=== PATIENT | female | born 1940 | race Caucasian/White ===

== ENCOUNTER 2018-10-23 08:55 | Outpatient (CLI) | payer MEDICARE, MEDICAID ==
[~2018-10-23 08:55] MED LIST: ALPR0.5T PO; ATEN50TA PO; CALCIUM PO; CLOT10TR MM; DICL100G16 TP; DOCU100C68 PO; GABA-534 PO; IBUP-23 PO; LINA145C PO; MECL12.582 PO; NAPR500T6 PO; PANT40TA4 PO; PREG150C PO; ROSU20TA2 PO; SENN-168 PO; SERT50TA PO; SOLI5TAB2 PO; TRAM50TA2 PO; ZOLP10TA2 PO; [UNRECOGNIZED DRUG - CODE] PO
[2018-10-23 09:52] LABS: BASOPHILS % (AUTO) 0.9 % (0.0-2.0); HEMATOCRIT 36.2 % (31.2-41.9); HEMOGLOBIN 12.2 g/dL (10.9-14.3); LYMPHOCYTES # (AUTO) 1.4 K/uL (20.0-40.0); LYMPHOCYTES % (AUTO) 31.8 % (20.5-51.5); MEAN CORPUSCULAR HEMOGLOBIN 29.7 uug (24.7-32.8); MEAN CORPUSCULAR HGB CONC 34 g/dL (32.3-35.6); MEAN CORPUSCULAR VOLUME 88.2 fL (75.5-95.3); MONOCYTES # (AUTO) 0.5 K/uL (2.0-10.0); MONOCYTES % (AUTO) 10.9 % (0.0-11.0); NEUTROPHILS # (AUTO) 2.5 K/uL (1.8-8.9); NEUTROPHILS % (AUTO) 55.4 % (38.5-71.5); PLATELET COUNT (AUTO) 233 K/uL (179-408); WHITE BLOOD COUNT (AUTO) 4.5 K/uL (3.8-11.8)
[2018-10-23 09:54] LABS: *BILIRUBIN,URIN NEGATIVE (NEGATIVE); *BLOOD, URINE NEGATIVE (NEGATIVE); *CLARITY,URINE CLEAR (CLEAR); *COLOR,URINE YELLOW (YELLOW); *KETONES,URINE NEGATIVE (NEGATIVE); *UROBILINOGEN,URINE 0.2 E.U./dl (NORMAL); LEUKOCYTE ESTERASE ,URINE 1+ (NEGATIVE); NITRITE, URINE NEGATIVE (NEGATIVE); UGLUCOSE NEGATIVE (NEGATIVE)
[2018-10-23 10:00] LABS: RBC,URINE 0-3 /HPF (0-3)
[2018-10-23 10:01] LABS: BACTERIA,URINE MODERATE /HPF (NONE SEEN); SQUAMOUS EPITHELIAL CELL,UR FEW /HPF (NONE SEEN)
[2018-10-23 10:09] LABS: ALANINE AMINOTRANSFERASE 15 U/L (14-59); ALKALINE PHOSPHATASE 57 U/L (50-136); ASPARTATE AMINOTRANSFERASE < 5 U/L (15-37); BILIRUBIN,TOTAL 0.3 mg/dL (0.2-1.0); CARBON DIOXIDE 31 mmol/L (21-32); CHLORIDE 107 mmol/L (98-107); CHOLESTEROL 221 mg/dL (<200); CREATININE 0.8 mg/dL (0.6-1.3); GLUCOSE 87 mg/dL (74-106); HDL CHOLESTEROL 59 mg/dL (40-60); POTASSIUM 4.2 mmol/L (3.5-5.1); TOTAL PROTEIN, SERUM 6.6 g/dL (6.4-8.2); TRIGLYCERIDES 162 MG/DL (30-150); UREA NITROGEN, BLOOD 20 mg/dL (7-18)
[2018-10-23 12:09] LABS: THYROID STIMULATING HORMONE 1.339 mIU/mL (0.358-3.740)
== END 2018-10-23 23:59 | disposition home or self-care (01) ==
LOC: LAB 08:55
DX: D64.9 Anemia, unspecified (principal); E03.9 Hypothyroidism, unspecified; E78.5 Hyperlipidemia, unspecified; R73.03 Prediabetes; I10 Essential (primary) hypertension; I25.10 Atherosclerotic heart disease of native coronary artery without angina pectoris; K21.9 Gastro-esophageal reflux disease without esophagitis; M19.90 Unspecified osteoarthritis, unspecified site
CPT/HCPCS: 36415; 84443; 85025; 87086

== ENCOUNTER 2020-10-28 11:43 | Outpatient (CLI) | payer MEDICARE, OTHER ==
[~2020-10-28 11:43] MED LIST changes: +MECL-182 PO; -MECL12.582 PO; -PANT40TA4 PO; +PANT40TA49 PO; -SENN-168 PO; +SENN-261 PO
[2020-10-28 12:42] LABS: *BILIRUBIN,URIN NEGATIVE (NEGATIVE); *CLARITY,URINE SLIGHTLY CLOUDY (CLEAR); *COLOR,URINE LIGHT YELLOW (YELLOW); *KETONES,URINE NEGATIVE (NEGATIVE); *UROBILINOGEN,URINE 0.2 E.U./dl (NORMAL); LEUKOCYTE ESTERASE ,URINE 1+ (NEGATIVE); NITRITE, URINE NEGATIVE (NEGATIVE); PH,URINE 6.5 (5.0-8.0); UGLUCOSE NEGATIVE (NEGATIVE)
[2020-10-28 13:25] LABS: *BLOOD, URINE TRACE (NEGATIVE)
[2020-10-28 14:21] LABS: BACTERIA,URINE FEW /HPF (NONE SEEN); SQUAMOUS EPITHELIAL CELL,UR MODERATE /HPF (NONE SEEN); WBC,URINE 20-50 /HPF (0-3)
== END 2020-10-28 23:59 | disposition home or self-care (01) ==
LOC: LAB 11:43
PROVIDERS: ATTEND Family Medicine
DX: B82.9 Intestinal parasitism, unspecified (principal); N39.0 Urinary tract infection, site not specified
CPT/HCPCS: 87086

== ENCOUNTER 2021-10-15 13:37 | Outpatient (CLI) | payer MEDICARE, OTHER ==
[~2021-10-15 13:37] MED LIST changes: -MECL-182 PO; +MECL-225 PO
[2021-10-15 14:37] LABS: *BILIRUBIN,URIN NEGATIVE (NEGATIVE); *BLOOD, URINE 1+ (NEGATIVE); *CLARITY,URINE CLEAR (CLEAR); *COLOR,URINE YELLOW (YELLOW); *KETONES,URINE NEGATIVE (NEGATIVE); *UROBILINOGEN,URINE 0.2 E.U./dl (NORMAL); LEUKOCYTE ESTERASE ,URINE 3+ (NEGATIVE); NITRITE, URINE NEGATIVE (NEGATIVE); PH,URINE 6.5 (5.0-8.0); UGLUCOSE NEGATIVE (NEGATIVE)
[2021-10-15 18:12] LABS: BACTERIA,URINE 2 /HPF (NONE SEEN); SQUAMOUS EPITHELIAL CELL,UR FEW /HPF (NONE SEEN); WBC,URINE 50-80 /HPF (0-3)
== END 2021-10-15 23:59 | disposition home or self-care (01) ==
LOC: LAB 13:37
PROVIDERS: ATTEND Family Medicine
DX: R30.0 Dysuria (principal)
CPT/HCPCS: 87086

== ENCOUNTER 2022-04-08 14:01 | Emergency (ER) | payer MEDICARE, OTHER ==
[~2022-04-08] VITALS: Ht 157.5 cm; Wt 70.3 kg
[2022-04-08 14:50] LABS: HEMATOCRIT 36.6 % (31.2-41.9); MEAN CORPUSCULAR HEMOGLOBIN 28.3 uug (24.7-32.8); PLATELET COUNT (AUTO) 265 K/uL (179-408)
--- NOTE | 2022-04-08 14:51 | NUR ---
PT IS IN ROOM #1A. DR ZHANG EVALUATED THE PT.
[2022-04-08 15:01] LABS: *BILIRUBIN,URIN NEGATIVE (NEGATIVE); *BLOOD, URINE NEGATIVE (NEGATIVE); *CLARITY,URINE CLOUDY (CLEAR); *COLOR,URINE YELLOW (YELLOW); *KETONES,URINE NEGATIVE (NEGATIVE); *UROBILINOGEN,URINE 0.2 E.U./dl (NORMAL); LEUKOCYTE ESTERASE ,URINE TRACE (NEGATIVE); NITRITE, URINE NEGATIVE (NEGATIVE); UGLUCOSE NEGATIVE (NEGATIVE)
[2022-04-08 16:28] LABS: BILIRUBIN,TOTAL 0.4 mg/dL (0.2-1.0); CREATININE 1.3 mg/dL (0.6-1.3); TOTAL PROTEIN, SERUM 7.3 g/dL (6.4-8.2)
[2022-04-08 16:30] LABS: RBC,URINE 0-3 /HPF (0-3)
[2022-04-08 16:31] LABS: BACTERIA,URINE FEW /HPF (NONE SEEN); SQUAMOUS EPITHELIAL CELL,UR MODERATE /HPF (NONE SEEN)
[2022-04-08] MEDS ORDERED: IOHEXOL 300MG/ML 100 ML INFUS..BTL ONE (16:44)
[2022-04-08] MEDS ORDERED: IV NORMAL SALINE 250 ML IV ONE (16:44)
[2022-04-08] MEDS ORDERED: CELLULOSE,OXIDIZED 2x3 MC ONE (16:44)
[2022-04-08] MEDS ORDERED: SWABABLE VALVE TRANSFER SET EA MC ONE (16:45)
--- NOTE | 2022-04-08 18:38 | NUR ---
PT WAS D/C'd TO HOME. D/C INSTRUCTIONS GIVEN TO THE PT BY DR ZHANG.
[2022-04-08 18:47] VITALS: BP 135/75
== END 2022-04-08 18:48 | disposition home or self-care (01) ==
LOC: ER 14:01
DX: R10.84 Generalized abdominal pain (principal); K63.89 Other specified diseases of intestine; I10 Essential (primary) hypertension; K21.9 Gastro-esophageal reflux disease without esophagitis; Z88.6 Allergy status to analgesic agent; Z79.899 Other long term (current) drug therapy
CPT/HCPCS: 99285; 74177; 80053; 81001; 85025; 36415; 87040; Q9967; A4663

== ENCOUNTER 2022-09-22 11:47 | Emergency (ER) | payer MEDICARE, OTHER ==
[~2022-09-22] VITALS: Ht 162.6 cm; Wt 70.3 kg
[2022-09-22] MEDS ORDERED: BENZONATATE 100 MG CAPSULE PO ONE (12:15)
[2022-09-22] MEDS ORDERED: RISP1TAB97 PO (12:17)
[2022-09-22] MEDS ORDERED: LORA0.5T48 PO (12:17)
[2022-09-22] MEDS ORDERED: DIVA250T PO (12:17)
[2022-09-22] MEDS ORDERED: BENZ0.5T43 PO (12:17)
[2022-09-22] MEDS ORDERED: BENZONATATE 100 MG CAPSULE ONE (12:20)
--- NOTE | 2022-09-22 12:31 | NUR ---
MEDICATION: Tessalon administered as prescribed and awaiting effect
[2022-09-22 12:38] LABS: HEMATOCRIT 33.9 % (31.2-41.9); MEAN CORPUSCULAR HEMOGLOBIN 28.4 uug (24.7-32.8); MEAN CORPUSCULAR VOLUME 86.7 fL (75.5-95.3); PLATELET COUNT (AUTO) 327 K/uL (179-408)
[2022-09-22 12:51] LABS: ALANINE AMINOTRANSFERASE 26 U/L (14-59); ALKALINE PHOSPHATASE 75 U/L (50-136); ASPARTATE AMINOTRANSFERASE 8 U/L (15-37); BILIRUBIN,TOTAL 0.2 mg/dL (0.2-1.0); CARBON DIOXIDE 27 mmol/L (21-32); CHLORIDE 106 mmol/L (98-107); CREATININE 1.3 mg/dL (0.6-1.3); POTASSIUM 4.3 mmol/L (3.5-5.1); TOTAL PROTEIN, SERUM 7.2 g/dL (6.4-8.2); UREA NITROGEN, BLOOD 28 mg/dL (7-18)
[2022-09-22] MEDS ORDERED: BENZ-13 PO (13:54)
[2022-09-22] MEDS ORDERED: AZIT250T13 PO (13:54)
[2022-09-22] MEDS ORDERED: CARB15DR63 EACH EAR (13:58)
[2022-09-22 14:07] VITALS: BP 114/60; TEMP 98; O2SAT 98
--- NOTE | 2022-09-22 14:09 | NUR ---
DISCHARGED HOME, accompanied by family - clinically stable
== END 2022-09-22 14:09 | disposition home or self-care (01) ==
LOC: ER 11:47
DX: R05.9 Cough, unspecified (principal); R07.89 Other chest pain; I10 Essential (primary) hypertension; K21.9 Gastro-esophageal reflux disease without esophagitis; Z88.5 Allergy status to narcotic agent; Z79.899 Other long term (current) drug therapy; Z79.1 Long term (current) use of non-steroidal anti-inflammatories (NSAID)
CPT/HCPCS: 36415; 71046; 85025; A4663

== ENCOUNTER 2022-11-08 20:14 | Inpatient (IN) | payer MEDICARE, OTHER ==
[~2022-11-08] VITALS: Ht 152.4 cm; Wt 63.5 kg
[~2022-11-08 20:14] MED LIST changes: +AZIT250T13 PO; +BENZ-13 PO; +BENZ0.5T43 PO; -CALCIUM PO; +CARB15DR63 EACH EAR; -CLOT10TR MM; -DICL100G16 TP; +DIVA250T PO; -DOCU100C68 PO; -GABA-534 PO; -IBUP-23 PO; -LINA145C PO; +LORA0.5T48 PO; -MECL-225 PO; -NAPR500T6 PO; +RISP1TAB97 PO; -SENN-261 PO; -TRAM50TA2 PO; -ZOLP10TA2 PO; -[UNRECOGNIZED DRUG - CODE] PO
[2022-11-08 20:51] LABS: BASOPHILS % (AUTO) 0.5 % (0.0-2.0); EOSINOPHILS % (AUTO) 0.1 % (0.0-7.0); HEMATOCRIT 34.4 % (31.2-41.9); HEMOGLOBIN 11.2 g/dL (10.9-14.3); LYMPHOCYTES # (AUTO) 0.4 K/uL (0.8-4.8); LYMPHOCYTES % (AUTO) 4.9 % (20.5-51.5); MEAN CORPUSCULAR HEMOGLOBIN 28.6 uug (24.7-32.8); MEAN CORPUSCULAR HGB CONC 33 g/dL (32.3-35.6); MEAN CORPUSCULAR VOLUME 87.7 fL (75.5-95.3); MONOCYTES # (AUTO) 0.3 K/uL (0.1-1.30); MONOCYTES % (AUTO) 3.5 % (0.0-11.0); NEUTROPHILS # (AUTO) 7.9 K/uL (1.8-8.9); PLATELET COUNT (AUTO) 155 K/uL (179-408); RED BLOOD CELL COUNT(AUTO) 3.92 MIL/uL (3.63-4.92); RED CELL DISTRIBUTION WIDTH 14.4 % (12.3-17.7); WHITE BLOOD COUNT (AUTO) 8.6 K/uL (3.8-11.8)
[2022-11-08 20:52] LABS: DIFFERENTIAL COMMENT 1
[2022-11-08 21:09] LABS: ALANINE AMINOTRANSFERASE 289 U/L (14-59); ALBUMIN 3.3 g/dL (3.4-5.0); ALKALINE PHOSPHATASE 114 U/L (50-136); ASPARTATE AMINOTRANSFERASE 434 U/L (15-37); BILIRUBIN,DIRECT 0.9 mg/dL (0.0-0.2); BILIRUBIN,TOTAL 1.2 mg/dL (0.2-1.0); CALCIUM 9.1 mg/dL (8.5-10.1); CARBON DIOXIDE 23 mmol/L (21-32); CHLORIDE 101 mmol/L (98-107); CREATININE 1.4 mg/dL (0.6-1.3); GLUCOSE 149 mg/dL (74-106); LIPASE 560 U/L (73-393); POTASSIUM 4.6 mmol/L (3.5-5.1); SODIUM SERUM 138 mmol/L (136-145); TOTAL PROTEIN, SERUM 6.7 g/dL (6.4-8.2); UREA NITROGEN, BLOOD 25 mg/dL (7-18)
[2022-11-08] MEDS ORDERED: PIPERACILLIN SODIUM/TAZOBACTAM 3.375 G in IV DEXTROSE 5% 50 ML IV ONE (22:45)
[2022-11-08] MEDS ORDERED: PIPERACILLIN/TAZOBACTAM/D5W 50 ML IV ONE (22:59)
[2022-11-09] MEDS ORDERED: MAGNESIUM HYDROXIDE 30 ML LIQUID UDC PO PRN (01:00)
[2022-11-09] MEDS ORDERED: ONDANSETRON 4 MG/2 ML VIAL IV PRN (01:00)
[2022-11-09] MEDS ORDERED: IV D5 1/2 NS 1000 ML 1,000 ML IV PRN (01:00)
[2022-11-09] MEDS ORDERED: ACETAMINOPHEN 325 MG TABLET PO PRN (01:00)
[2022-11-09] MEDS ORDERED: REMEDY ESSENTIAL ZINC PASTE 113 GM TP PRN (01:00)
[2022-11-09] MEDS ORDERED: MORPHINE SULFATE 2 MG/1 ML DISP.SYRIN IV PRN ×2 (01:00→05:52)
[2022-11-09 05:21] VITALS: BP 98/50; TEMP 98.2; O2SAT 99
[2022-11-09] MEDS ORDERED: PIPERACILLIN/TAZOBACTAM/D5W 50 ML IV ONE (06:28)
[2022-11-09] MEDS: PIPERACILLIN SODIUM/TAZOBACTAM 3.375 G in IV DEXTROSE 5% 100 ML IV SCH ×3 (06:34→22:13)
[2022-11-09] MEDS ORDERED: PIPERACILLIN SODIUM/TAZOBACTAM 3.375 G in IV DEXTROSE 5% 50 ML IV SCH (07:00)
[2022-11-09 07:47] LABS: ALBUMIN 2.9 g/dL (3.4-5.0); BILIRUBIN,DIRECT 1.4 mg/dL (0.0-0.2); BILIRUBIN,TOTAL 1.7 mg/dL (0.2-1.0); TOTAL PROTEIN, SERUM 6.1 g/dL (6.4-8.2)
[2022-11-09] MEDS: PANTOPRAZOLE SODIUM 40 MG VIAL IV SCH (09:44)
[2022-11-09] MEDS ORDERED: DEXL60CA3 PO (09:59)
[2022-11-09] MEDS ORDERED: MIRA50TA PO (10:00)
[2022-11-09] MEDS ORDERED: LORA-259 PO (10:16)
[2022-11-09] MEDS ORDERED: ATOR40TA PO (10:16)
[2022-11-09] MEDS ORDERED: DIVA125C5 PO (10:17)
[2022-11-09] MEDS ORDERED: RISP0.5T5 PO (10:17)
[2022-11-09 11:54] VITALS: BP 138/63; TEMP 98.6; O2SAT 97
[2022-11-09] MEDS: IV D5/ 0.9% NACL 1,000 ML IV PRN (14:38)
[2022-11-09 15:53] VITALS: BP 119/60; TEMP 98.1; O2SAT 96
[2022-11-09 20:20] VITALS: BP 145/59; TEMP 97.8; O2SAT 100
[2022-11-10 04:18] VITALS: BP 137/63; TEMP 98; O2SAT 95
[2022-11-10] MEDS: PIPERACILLIN SODIUM/TAZOBACTAM 3.375 G in IV DEXTROSE 5% 100 ML IV SCH ×3 (05:43→21:06)
[2022-11-10 08:07] LABS: BASOPHILS % (AUTO) 0.5 % (0.0-2.0); EOSINOPHILS # (AUTO) 0.2 K/uL (0.0-0.7); EOSINOPHILS % (AUTO) 3.2 % (0.0-7.0); HEMATOCRIT 33.7 % (31.2-41.9); HEMOGLOBIN 11.1 g/dL (10.9-14.3); LYMPHOCYTES # (AUTO) 0.4 K/uL (0.8-4.8); LYMPHOCYTES % (AUTO) 7.3 % (20.5-51.5); MEAN CORPUSCULAR HGB CONC 33 g/dL (32.3-35.6); MEAN CORPUSCULAR VOLUME 88.1 fL (75.5-95.3); MONOCYTES # (AUTO) 0.4 K/uL (0.1-1.30); MONOCYTES % (AUTO) 7.7 % (0.0-11.0); NEUTROPHILS # (AUTO) 4.7 K/uL (1.8-8.9); NEUTROPHILS % (AUTO) 81.3 % (38.5-71.5); PLATELET COUNT (AUTO) 200 K/uL (179-408); RED BLOOD CELL COUNT(AUTO) 3.82 MIL/uL (3.63-4.92); RED CELL DISTRIBUTION WIDTH 14.8 % (12.3-17.7); WHITE BLOOD COUNT (AUTO) 5.7 K/uL (3.8-11.8)
[2022-11-10 08:30] LABS: DIFFERENTIAL COMMENT 1
[2022-11-10 08:45] LABS: THYROID STIMULATING HORMONE 1.155 mIU/mL (0.358-3.740)
[2022-11-10 08:49] VITALS: BP 124/67; TEMP 98; O2SAT 96
[2022-11-10 09:30] LABS: ALANINE AMINOTRANSFERASE 709 U/L (14-59); ALBUMIN 2.9 g/dL (3.4-5.0); ALKALINE PHOSPHATASE 138 U/L (50-136); ASPARTATE AMINOTRANSFERASE 298 U/L (15-37); BILIRUBIN,TOTAL 2.4 mg/dL (0.2-1.0); CALCIUM 9.2 mg/dL (8.5-10.1); CARBON DIOXIDE 23 mmol/L (21-32); CHLORIDE 110 mmol/L (98-107); CREATININE 1.5 mg/dL (0.6-1.3); GLUCOSE 132 mg/dL (74-106); LIPASE 103 U/L (73-393); MAGNESIUM 2.3 mg/dL (1.8-2.4); PHOSPHOROUS 3.2 mg/dL (2.5-4.9); POTASSIUM 3.7 mmol/L (3.5-5.1); SODIUM SERUM 147 mmol/L (136-145); TOTAL PROTEIN, SERUM 6.4 g/dL (6.4-8.2); UREA NITROGEN, BLOOD 17 mg/dL (7-18)
[2022-11-10 09:45] LABS: CHOLESTEROL 131 mg/dL (<200); HDL CHOLESTEROL 18 mg/dL (40-60); TRIGLYCERIDES 126 MG/DL (30-150)
[2022-11-10] MEDS: PANTOPRAZOLE SODIUM 40 MG VIAL IV SCH (10:13)
[2022-11-10 12:34] LABS: *CLARITY,URINE CLEAR (CLEAR); *COLOR,URINE YELLOW (YELLOW); *KETONES,URINE NEGATIVE (NEGATIVE); *PROTEIN,URINE 2+ (NEGATIVE); LEUKOCYTE ESTERASE ,URINE 1+ (NEGATIVE); NITRITE, URINE NEGATIVE (NEGATIVE); UGLUCOSE NEGATIVE (NEGATIVE)
[2022-11-10 13:07] LABS: *BILIRUBIN,URIN 2+ (NEGATIVE); *BLOOD, URINE TRACE (NEGATIVE)
[2022-11-10 13:42] VITALS: BP 132/65; TEMP 98.8
[2022-11-10 14:42] LABS: BACTERIA,URINE MODERATE /HPF (NONE SEEN); RBC,URINE 0-3 /HPF (0-3); SQUAMOUS EPITHELIAL CELL,UR FEW /HPF (NONE SEEN); WBC,URINE 80-100 /HPF (0-3)
[2022-11-10 20:00] VITALS: BP 129/54; TEMP 97.9; O2SAT 99
[2022-11-10] MEDS: LORAZEPAM 2 MG/1 ML VIAL IV PRN (23:38)
[2022-11-11 04:00] VITALS: BP 131/61; TEMP 98; O2SAT 100
[2022-11-11] MEDS: PIPERACILLIN SODIUM/TAZOBACTAM 3.375 G in IV DEXTROSE 5% 100 ML IV SCH ×3 (05:10→21:43)
[2022-11-11 06:47] LABS: BASOPHILS % (AUTO) 0.9 % (0.0-2.0); EOSINOPHILS # (AUTO) 0.2 K/uL (0.0-0.7); EOSINOPHILS % (AUTO) 4.2 % (0.0-7.0); HEMATOCRIT 30.6 % (31.2-41.9); HEMOGLOBIN 10.2 g/dL (10.9-14.3); LYMPHOCYTES # (AUTO) 0.7 K/uL (0.8-4.8); MEAN CORPUSCULAR HEMOGLOBIN 29.3 uug (24.7-32.8); MEAN CORPUSCULAR HGB CONC 34 g/dL (32.3-35.6); MEAN CORPUSCULAR VOLUME 87.5 fL (75.5-95.3); MONOCYTES # (AUTO) 0.5 K/uL (0.1-1.30); MONOCYTES % (AUTO) 10.9 % (0.0-11.0); PLATELET COUNT (AUTO) 204 K/uL (179-408); RED CELL DISTRIBUTION WIDTH 14.4 % (12.3-17.7); WHITE BLOOD COUNT (AUTO) 4.5 K/uL (3.8-11.8)
[2022-11-11 07:03] LABS: ALANINE AMINOTRANSFERASE 471 U/L (14-59); ALBUMIN 2.7 g/dL (3.4-5.0); ALKALINE PHOSPHATASE 161 U/L (50-136); ASPARTATE AMINOTRANSFERASE 129 U/L (15-37); BILIRUBIN,TOTAL 1.1 mg/dL (0.2-1.0); CALCIUM 8.3 mg/dL (8.5-10.1); CARBON DIOXIDE 24 mmol/L (21-32); CHLORIDE 111 mmol/L (98-107); CREATININE 1.4 mg/dL (0.6-1.3); GLUCOSE 115 mg/dL (74-106); MAGNESIUM 2.2 mg/dL (1.8-2.4); PHOSPHOROUS 3.1 mg/dL (2.5-4.9); POTASSIUM 3.6 mmol/L (3.5-5.1); SODIUM SERUM 146 mmol/L (136-145); TOTAL PROTEIN, SERUM 6.1 g/dL (6.4-8.2); UREA NITROGEN, BLOOD 18 mg/dL (7-18)
[2022-11-11 07:08] LABS: DIFFERENTIAL COMMENT 1
[2022-11-11] MEDS: PANTOPRAZOLE SODIUM 40 MG VIAL IV SCH (08:43)
[2022-11-11 12:00] VITALS: BP 132/56; TEMP 98; O2SAT 98
[2022-11-11] MEDS: IV D5/ 0.9% NACL 1,000 ML IV PRN (13:53)
[2022-11-11 16:00] VITALS: BP 140/56; TEMP 98; O2SAT 97
[2022-11-11] MEDS ORDERED: BISACODYL 10 MG SUPP.RECT RC ONE (18:00)
[2022-11-11] MEDS: ACETAMINOPHEN 325 MG TABLET PO PRN (18:41)
[2022-11-11 20:00] VITALS: BP 144/69; TEMP 98.7; O2SAT 96
[2022-11-12 04:00] VITALS: BP 174/83; TEMP 98.3; O2SAT 95
[2022-11-12] MEDS: PIPERACILLIN SODIUM/TAZOBACTAM 3.375 G in IV DEXTROSE 5% 100 ML IV SCH ×2 (05:33→13:30)
[2022-11-12] MEDS: PANTOPRAZOLE SODIUM 40 MG TABLET.DR PO SCH (06:10)
[2022-11-12 07:42] LABS: BASOPHILS % (AUTO) 0.9 % (0.0-2.0); EOSINOPHILS # (AUTO) 0.2 K/uL (0.0-0.7); EOSINOPHILS % (AUTO) 2.8 % (0.0-7.0); HEMATOCRIT 33.7 % (31.2-41.9); HEMOGLOBIN 11.2 g/dL (10.9-14.3); LYMPHOCYTES % (AUTO) 18.2 % (20.5-51.5); MEAN CORPUSCULAR HEMOGLOBIN 28.9 uug (24.7-32.8); MEAN CORPUSCULAR HGB CONC 33 g/dL (32.3-35.6); MEAN CORPUSCULAR VOLUME 87.2 fL (75.5-95.3); MONOCYTES # (AUTO) 0.6 K/uL (0.1-1.30); MONOCYTES % (AUTO) 10.2 % (0.0-11.0); NEUTROPHILS # (AUTO) 3.8 K/uL (1.8-8.9); NEUTROPHILS % (AUTO) 67.9 % (38.5-71.5); PLATELET COUNT (AUTO) 226 K/uL (179-408); RED BLOOD CELL COUNT(AUTO) 3.87 MIL/uL (3.63-4.92); RED CELL DISTRIBUTION WIDTH 14.7 % (12.3-17.7); WHITE BLOOD COUNT (AUTO) 5.6 K/uL (3.8-11.8)
[2022-11-12 07:52] LABS: DIFFERENTIAL COMMENT 1
[2022-11-12 07:59] LABS: IRON, SERUM 65 ug/dL (50-175)
[2022-11-12 08:01] VITALS: BP 176/83; TEMP 98.1; O2SAT 95
[2022-11-12 08:08] LABS: ALANINE AMINOTRANSFERASE 341 U/L (14-59); ALBUMIN 2.9 g/dL (3.4-5.0); ALKALINE PHOSPHATASE 177 U/L (50-136); ASPARTATE AMINOTRANSFERASE 55 U/L (15-37); BILIRUBIN,TOTAL 0.7 mg/dL (0.2-1.0); CALCIUM 8.8 mg/dL (8.5-10.1); CARBON DIOXIDE 25 mmol/L (21-32); CHLORIDE 109 mmol/L (98-107); CREATININE 1.3 mg/dL (0.6-1.3); GLUCOSE 128 mg/dL (74-106); MAGNESIUM 2.2 mg/dL (1.8-2.4); PHOSPHOROUS 3.3 mg/dL (2.5-4.9); POTASSIUM 3.5 mmol/L (3.5-5.1); SODIUM SERUM 146 mmol/L (136-145); TOTAL PROTEIN, SERUM 6.6 g/dL (6.4-8.2); UREA NITROGEN, BLOOD 14 mg/dL (7-18)
[2022-11-12] MEDS: BISACODYL 10 MG SUPP.RECT RC SCH (08:35)
[2022-11-12] MEDS ORDERED: VALPROIC ACID 250 MG CAPSULE PO SCH (09:30)
[2022-11-12] MEDS: risperiDONE 0.5 MG TABLET PO SCH (09:48)
[2022-11-12] MEDS: ATENOLOL 50 MG TABLET PO SCH (10:27)
[2022-11-12] MEDS: DIVALPROEX SPRINKLE 125 MG CAP.SPRINK PO SCH ×3 (10:27→21:54)
[2022-11-12] MEDS: ACETAMINOPHEN 325 MG TABLET PO PRN (10:52)
[2022-11-12 11:55] VITALS: BP 117/63; TEMP 97.8; O2SAT 97
[2022-11-12 16:17] VITALS: BP_SYST 140; BP_SYST 149; BP_DIAS 73; BP_DIAS 85; TEMP 97.8; O2SAT 97
[2022-11-12] MEDS: IV D5/ 0.9% NACL 1,000 ML IV PRN (18:27)
[2022-11-12 21:00] VITALS: BP 152/88; TEMP 98.5; O2SAT 97
[2022-11-12] MEDS: CEFTRIAXONE 1 G in IV DEXTROSE 5% 50 ML IV SCH (21:00)
[2022-11-12] MEDS ORDERED: CEFTRIAXONE /D5W 50ML IVPB **ER PYXIS IV ONE (23:24)
[2022-11-13] VITALS: BP 158/88; TEMP 98.8; O2SAT 97
[2022-11-13] MEDS: LORAZEPAM 2 MG/1 ML VIAL IV PRN (01:57)
[2022-11-13] MEDS: DIVALPROEX SPRINKLE 125 MG CAP.SPRINK PO SCH ×3 (06:00→21:26)
[2022-11-13] MEDS: PANTOPRAZOLE SODIUM 40 MG TABLET.DR PO SCH (06:25)
[2022-11-13 07:47] LABS: BASOPHILS # (AUTO) 0.1 K/UL (0.0-0.2); BASOPHILS % (AUTO) 1.3 % (0.0-2.0); EOSINOPHILS # (AUTO) 0.1 K/uL (0.0-0.7); EOSINOPHILS % (AUTO) 2.8 % (0.0-7.0); HEMOGLOBIN 10.6 g/dL (10.9-14.3); LYMPHOCYTES # (AUTO) 1.3 K/uL (0.8-4.8); LYMPHOCYTES % (AUTO) 26.3 % (20.5-51.5); MEAN CORPUSCULAR HGB CONC 33 g/dL (32.3-35.6); MEAN CORPUSCULAR VOLUME 87.7 fL (75.5-95.3); MONOCYTES # (AUTO) 0.6 K/uL (0.1-1.30); MONOCYTES % (AUTO) 12.1 % (0.0-11.0); NEUTROPHILS # (AUTO) 2.9 K/uL (1.8-8.9); NEUTROPHILS % (AUTO) 57.5 % (38.5-71.5); PLATELET COUNT (AUTO) 226 K/uL (179-408); RED BLOOD CELL COUNT(AUTO) 3.65 MIL/uL (3.63-4.92); RED CELL DISTRIBUTION WIDTH 14.6 % (12.3-17.7)
[2022-11-13 07:49] LABS: DIFFERENTIAL COMMENT 1
[2022-11-13 08:00] VITALS: BP 148/72; TEMP 98.6; O2SAT 95
[2022-11-13 08:02] LABS: ALANINE AMINOTRANSFERASE 229 U/L (14-59); ALBUMIN 2.5 g/dL (3.4-5.0); ALKALINE PHOSPHATASE 194 U/L (50-136); ASPARTATE AMINOTRANSFERASE 36 U/L (15-37); BILIRUBIN,TOTAL 0.4 mg/dL (0.2-1.0); CALCIUM 8.3 mg/dL (8.5-10.1); CARBON DIOXIDE 23 mmol/L (21-32); CHLORIDE 111 mmol/L (98-107); CREATININE 1.1 mg/dL (0.6-1.3); GLUCOSE 114 mg/dL (74-106); PHOSPHOROUS 3.5 mg/dL (2.5-4.9); POTASSIUM 3.8 mmol/L (3.5-5.1); SODIUM SERUM 144 mmol/L (136-145); TOTAL PROTEIN, SERUM 6.1 g/dL (6.4-8.2); UREA NITROGEN, BLOOD 11 mg/dL (7-18)
[2022-11-13] MEDS: BISACODYL 10 MG SUPP.RECT RC SCH (11:15)
[2022-11-13] MEDS: ATENOLOL 50 MG TABLET PO SCH (11:15)
[2022-11-13] MEDS: risperiDONE 0.5 MG TABLET PO SCH (11:17)
[2022-11-13 16:00] VITALS: BP 141/59; TEMP 98.2; O2SAT 96
[2022-11-13] MEDS: CEFTRIAXONE 1 G in IV DEXTROSE 5% 50 ML IV SCH (21:21)
[2022-11-13] MEDS: ACIDOPHILUS/BULGARICUS CHEW TAB PO SCH (21:21)
[2022-11-13 23:03] VITALS: BP 154/53; TEMP 98; O2SAT 94
[2022-11-14 04:29] VITALS: BP 142/62; TEMP 98.2
[2022-11-14] MEDS: DIVALPROEX SPRINKLE 125 MG CAP.SPRINK PO SCH (06:00)
[2022-11-14] MEDS: PANTOPRAZOLE SODIUM 40 MG TABLET.DR PO SCH (06:31)
[2022-11-14 08:04] VITALS: BP 135/78; TEMP 98.1; O2SAT 93
[2022-11-14] MEDS: risperiDONE 0.5 MG TABLET PO SCH (09:33)
[2022-11-14] MEDS: BISACODYL 10 MG SUPP.RECT RC SCH (09:33)
[2022-11-14] MEDS: ATENOLOL 50 MG TABLET PO SCH (09:35)
[2022-11-14] MEDS: ACIDOPHILUS/BULGARICUS CHEW TAB PO SCH (09:35)
[2022-11-14 11:30] VITALS: BP 107/47; TEMP 98.2; O2SAT 95
[2022-11-14] MEDS ORDERED: ACID1TAB4 PO (12:43)
== END 2022-11-14 13:30 | disposition home or self-care (01) | DRG 871 ==
LOC: ER 20:17 → MEDSURG3 11-09 00:52
PROVIDERS: ADMIT Internal Medicine; ATTEND Internal Medicine
DX: A41.9 Sepsis, unspecified organism (principal); K85.90 Acute pancreatitis without necrosis or infection, unspecified; N17.0 Acute kidney failure with tubular necrosis; E44.0 Moderate protein-calorie malnutrition; N39.0 Urinary tract infection, site not specified; K80.01 Calculus of gallbladder with acute cholecystitis with obstruction; D64.9 Anemia, unspecified; E66.9 Obesity, unspecified; Z68.27 Body mass index [BMI] 27.0-27.9, adult; E78.5 Hyperlipidemia, unspecified; Z79.899 Other long term (current) drug therapy; Z96.653 Presence of artificial knee joint, bilateral; G89.29 Other chronic pain; K21.9 Gastro-esophageal reflux disease without esophagitis; M19.90 Unspecified osteoarthritis, unspecified site
CPT/HCPCS: 36415; 71045; 74181; 78445; 83550; 83690; 83735; 84100; 84443; 84484; 85025; 85730; 93005; A4663; A9537; C9113; G0378; J0696; J2060; J2543; J7042

== ENCOUNTER 2023-08-02 08:27 | Emergency (ER) | payer MEDICARE, OTHER ==
[~2023-08-02] VITALS: Ht 162.6 cm; Wt 71.7 kg
[~2023-08-02 08:27] MED LIST changes: +ACID1TAB4 PO; -ALPR0.5T PO; -ATEN50TA PO; -AZIT250T13 PO; -BENZ-13 PO; -CARB15DR63 EACH EAR; +DEXL60CA3 PO; +DIVA125C5 PO; -DIVA250T PO; +LORA-259 PO; -LORA0.5T48 PO; +MIRA50TA PO; -PANT40TA49 PO; -PREG150C PO; +RISP0.5T5 PO; -RISP1TAB97 PO; -ROSU20TA2 PO; -SERT50TA PO; -SOLI5TAB2 PO
[2023-08-02 09:13] LABS: BASOPHILS # (AUTO) 0.1 K/UL (0.0-0.2); EOSINOPHILS # (AUTO) 0.1 K/uL (0.0-0.7); EOSINOPHILS % (AUTO) 2.1 % (0.0-7.0); HEMATOCRIT 32.1 % (31.2-41.9); LYMPHOCYTES # (AUTO) 1.2 K/uL (0.8-4.8); LYMPHOCYTES % (AUTO) 23.2 % (20.5-51.5); MEAN CORPUSCULAR HEMOGLOBIN 28.9 uug (24.7-32.8); MEAN CORPUSCULAR HGB CONC 34 g/dL (32.3-35.6); MEAN CORPUSCULAR VOLUME 84.8 fL (75.5-95.3); MONOCYTES # (AUTO) 0.6 K/uL (0.1-1.30); MONOCYTES % (AUTO) 11.1 % (0.0-11.0); NEUTROPHILS # (AUTO) 3.3 K/uL (1.8-8.9); NEUTROPHILS % (AUTO) 62.6 % (38.5-71.5); PLATELET COUNT (AUTO) 250 K/uL (179-408); RED BLOOD CELL COUNT(AUTO) 3.79 MIL/uL (3.63-4.92); RED CELL DISTRIBUTION WIDTH 13.6 % (12.3-17.7); WHITE BLOOD COUNT (AUTO) 5.3 K/uL (3.8-11.8)
[2023-08-02 09:31] LABS: ALANINE AMINOTRANSFERASE 12 U/L (14-59); ALBUMIN 3.3 g/dL (3.4-5.0); ALKALINE PHOSPHATASE 69 U/L (50-136); ASPARTATE AMINOTRANSFERASE < 5 U/L (15-37); BILIRUBIN,TOTAL 0.4 mg/dL (0.2-1.0); CARBON DIOXIDE 25 mmol/L (21-32); CHLORIDE 107 mmol/L (98-107); CREATININE 1.3 mg/dL (0.6-1.3); GLUCOSE 106 mg/dL (74-106); LIPASE 50 U/L (16-77); SODIUM SERUM 143 mmol/L (136-145); TOTAL PROTEIN, SERUM 6.6 g/dL (6.4-8.2); UREA NITROGEN, BLOOD 33 mg/dL (7-18)
[2023-08-02 09:39] LABS: DIFFERENTIAL COMMENT 1
[2023-08-02 09:45] LABS: BILIRUBIN,DIRECT < 0.1 mg/dL (0.0-0.2)
[2023-08-02] MEDS: IV NORMAL SALINE 500 ML BAG IV ONE (10:21)
[2023-08-02 10:23] LABS: *BILIRUBIN,URIN NEGATIVE (NEGATIVE); *CLARITY,URINE SLIGHTLY CLOUDY (CLEAR); *COLOR,URINE LIGHT YELLOW (YELLOW); *KETONES,URINE NEGATIVE (NEGATIVE); *PROTEIN,URINE NEGATIVE (NEGATIVE); *UROBILINOGEN,URINE 0.2 E.U./dl (NORMAL); LEUKOCYTE ESTERASE ,URINE 2+ (NEGATIVE); NITRITE, URINE NEGATIVE (NEGATIVE); PH,URINE 5.5 (5.0-8.0); UGLUCOSE NEGATIVE (NEGATIVE)
[2023-08-02 10:35] LABS: *BLOOD, URINE TRACE (NEGATIVE)
[2023-08-02] MEDS ORDERED: CEFTRIAXONE /D5W 50ML IVPB **ER PYXIS IV ONE (11:23)
[2023-08-02] MEDS: CEFTRIAXONE 1 G in IV DEXTROSE 5% 50 ML IV ONE (11:30)
[2023-08-02] MEDS ORDERED: CEFD300C3 PO (12:34)
[2023-08-02 12:53] VITALS: BP 133/80; TEMP 97; O2SAT 99
[2023-08-02 15:51] LABS: BACTERIA,URINE FEW /HPF (NONE SEEN); RBC,URINE 0-3 /HPF (0-3); SQUAMOUS EPITHELIAL CELL,UR FEW /HPF (NONE SEEN); WBC,URINE 20-50 /HPF (0-3)
== END 2023-08-02 12:54 | disposition home or self-care (01) ==
LOC: ER 08:27
DX: N39.0 Urinary tract infection, site not specified (principal); R10.9 Unspecified abdominal pain; R53.83 Other fatigue; R53.1 Weakness; I10 Essential (primary) hypertension; E78.5 Hyperlipidemia, unspecified; K21.9 Gastro-esophageal reflux disease without esophagitis; F32.A Depression, unspecified; Z98.890 Other specified postprocedural states; Z79.899 Other long term (current) drug therapy; Z88.5 Allergy status to narcotic agent
CPT/HCPCS: 99285; 74176; 96365; 76705; 71045; 80076; 80048; 81001; 83690; 85025; 84484; 36415; 93005; J0696; A4663

== ENCOUNTER 2023-10-29 14:45 | Inpatient (IN) | payer MEDICARE, OTHER ==
[~2023-10-29] VITALS: Ht 160 cm; Wt 69.9 kg
[~2023-10-29 14:45] MED LIST changes: +CEFD300C3 PO
[2023-10-29] MEDS ORDERED: BENZ0.5T43 PO (15:30)
[2023-10-29 15:31] LABS: BASOPHILS % (AUTO) 0.5 % (0.0-2.0); EOSINOPHILS % (AUTO) 0.5 % (0.0-7.0); HEMATOCRIT 36.9 % (31.2-41.9); HEMOGLOBIN 12.1 g/dL (10.9-14.3); LYMPHOCYTES # (AUTO) 0.4 K/uL (0.8-4.8); LYMPHOCYTES % (AUTO) 5.2 % (20.5-51.5); MEAN CORPUSCULAR HEMOGLOBIN 28.2 uug (24.7-32.8); MEAN CORPUSCULAR HGB CONC 33 g/dL (32.3-35.6); MEAN CORPUSCULAR VOLUME 86.3 fL (75.5-95.3); MONOCYTES # (AUTO) 0.6 K/uL (0.1-1.30); NEUTROPHILS # (AUTO) 7.4 K/uL (1.8-8.9); NEUTROPHILS % (AUTO) 86.8 % (38.5-71.5); PLATELET COUNT (AUTO) 232 K/uL (179-408); RED BLOOD CELL COUNT(AUTO) 4.28 MIL/uL (3.63-4.92); RED CELL DISTRIBUTION WIDTH 13.9 % (12.3-17.7); WHITE BLOOD COUNT (AUTO) 8.6 K/uL (3.8-11.8)
[2023-10-29 15:35] LABS: DIFFERENTIAL COMMENT 1
[2023-10-29 15:39] LABS: CALCIUM 8.9 mg/dL (8.5-10.1); CARBON DIOXIDE 25 mmol/L (21-32); CHLORIDE 106 mmol/L (98-107); CREATININE 1.4 mg/dL (0.6-1.3); GLUCOSE 157 mg/dL (74-106); POTASSIUM 4.5 mmol/L (3.5-5.1); SODIUM SERUM 143 mmol/L (136-145); UREA NITROGEN, BLOOD 34 mg/dL (7-18)
[2023-10-29] MEDS: IV NORMAL SALINE 500 ML BAG IV ONE (15:49)
[2023-10-29 15:52] LABS: ALANINE AMINOTRANSFERASE 14 U/L (14-59); ALBUMIN 3.4 g/dL (3.4-5.0); ALKALINE PHOSPHATASE 66 U/L (50-136); ASPARTATE AMINOTRANSFERASE < 5 U/L (15-37); BILIRUBIN,DIRECT 0.1 mg/dL (0.0-0.2); BILIRUBIN,TOTAL 0.3 mg/dL (0.2-1.0); NT-PRO BNP 903 pg/mL (0-125); TOTAL PROTEIN, SERUM 7.1 g/dL (6.4-8.2)
[2023-10-29] MEDS ORDERED: ACETAMINOPHEN 650 MG/20.3 ML LIQUID UDC ONE (15:52)
[2023-10-29] MEDS: ACETAMINOPHEN 650 MG/20.3 ML LIQUID UDC PO ONE (15:53)
[2023-10-29 16:07] LABS: *BILIRUBIN,URIN NEGATIVE (NEGATIVE); *BLOOD, URINE NEGATIVE (NEGATIVE); *CLARITY,URINE CLEAR (CLEAR); *COLOR,URINE YELLOW (YELLOW); *KETONES,URINE NEGATIVE (NEGATIVE); *PROTEIN,URINE NEGATIVE (NEGATIVE); *UROBILINOGEN,URINE 0.2 E.U./dl (NORMAL); LEUKOCYTE ESTERASE ,URINE 1+ (NEGATIVE); NITRITE, URINE NEGATIVE (NEGATIVE); UGLUCOSE NEGATIVE (NEGATIVE)
[2023-10-29 16:32] LABS: RBC,URINE 0-3 /HPF (0-3)
[2023-10-29 16:33] LABS: BACTERIA,URINE FEW /HPF (NONE SEEN); SQUAMOUS EPITHELIAL CELL,UR FEW /HPF (NONE SEEN); WBC,URINE 50-80 /HPF (0-3)
[2023-10-29] MEDS ORDERED: CEFTRIAXONE /D5W 50ML IVPB **ER PYXIS IV ONE (17:30)
[2023-10-29] MEDS: CEFTRIAXONE 1 G in IV DEXTROSE 5% 50 ML IV ONE (17:38)
[2023-10-29] MEDS ORDERED: MAGNESIUM HYDROXIDE 30 ML LIQUID UDC PO PRN (19:30)
[2023-10-29] MEDS: IV NS 1000 ML 1,000 ML IV PRN (21:27)
[2023-10-29] MEDS: LORAZEPAM 1 MG TABLET PO SCH (21:27)
[2023-10-29] MEDS: DOCUSATE SODIUM 100 MG CAPSULE PO SCH (21:27)
[2023-10-30] VITALS: BP 141/72; TEMP 98.2
[2023-10-30 05:56] VITALS: BP 145/75; TEMP 98
[2023-10-30 07:27] LABS: BASOPHILS % (AUTO) 0.9 % (0.0-2.0); EOSINOPHILS # (AUTO) 0.1 K/uL (0.0-0.7); EOSINOPHILS % (AUTO) 0.9 % (0.0-7.0); HEMATOCRIT 31.8 % (31.2-41.9); HEMOGLOBIN 10.6 g/dL (10.9-14.3); LYMPHOCYTES % (AUTO) 17.9 % (20.5-51.5); MEAN CORPUSCULAR HEMOGLOBIN 28.7 uug (24.7-32.8); MEAN CORPUSCULAR HGB CONC 33 g/dL (32.3-35.6); MONOCYTES # (AUTO) 0.7 K/uL (0.1-1.30); MONOCYTES % (AUTO) 13.9 % (0.0-11.0); NEUTROPHILS # (AUTO) 3.6 K/uL (1.8-8.9); NEUTROPHILS % (AUTO) 66.4 % (38.5-71.5); PLATELET COUNT (AUTO) 202 K/uL (179-408); RED BLOOD CELL COUNT(AUTO) 3.69 MIL/uL (3.63-4.92); RED CELL DISTRIBUTION WIDTH 13.8 % (12.3-17.7); WHITE BLOOD COUNT (AUTO) 5.4 K/uL (3.8-11.8)
[2023-10-30 07:30] LABS: DIFFERENTIAL COMMENT 1
[2023-10-30 07:40] LABS: THYROID STIMULATING HORMONE 0.917 mIU/mL (0.358-3.740)
[2023-10-30 08:00] VITALS: BP 140/70; TEMP 98; O2SAT 96
[2023-10-30 08:19] LABS: IRON, SERUM 16 ug/dL (50-175)
[2023-10-30 08:28] LABS: ALANINE AMINOTRANSFERASE 8 U/L (14-59); ALKALINE PHOSPHATASE 54 U/L (50-136); ASPARTATE AMINOTRANSFERASE < 5 U/L (15-37); BILIRUBIN,TOTAL 0.3 mg/dL (0.2-1.0); CALCIUM 8.3 mg/dL (8.5-10.1); CARBON DIOXIDE 25 mmol/L (21-32); CHLORIDE 109 mmol/L (98-107); CHOLESTEROL 195 mg/dL (<200); CREATININE 1.3 mg/dL (0.6-1.3); GLUCOSE 103 mg/dL (74-106); HDL CHOLESTEROL 47 mg/dL (40-60); MAGNESIUM 2.3 mg/dL (1.8-2.4); PHOSPHOROUS 3.3 mg/dL (2.5-4.9); SODIUM SERUM 144 mmol/L (136-145); TRIGLYCERIDES 108 MG/DL (30-150); UREA NITROGEN, BLOOD 28 mg/dL (7-18)
[2023-10-30] MEDS: BENZTROPINE MESYLATE 0.5 MG TABLET PO SCH (08:33)
[2023-10-30] MEDS: DIVALPROEX SPRINKLE 125 MG CAP.SPRINK PO SCH (08:33)
[2023-10-30] MEDS: risperiDONE 0.5 MG TABLET PO SCH (08:33)
[2023-10-30] MEDS ORDERED: Medication Not On Formulary EA (Mirabegron (Myrbetriq) 50 MG) PO SCH (09:00)
[2023-10-30 11:23] VITALS: BP 137/68; TEMP 98.2; O2SAT 96
[2023-10-30 16:37] VITALS: BP 166/52; TEMP 98.7; O2SAT 97
[2023-10-30 19:00] VITALS: BP 154/70; TEMP 100.5; O2SAT 94
[2023-10-30] MEDS: CEFTRIAXONE 1 G in IV DEXTROSE 5% 50 ML IV SCH (20:33)
[2023-10-30] MEDS: ACETAMINOPHEN 325 MG TABLET PO PRN (23:28)
[2023-10-31] VITALS: BP 166/68; TEMP 98.1; O2SAT 93
[2023-10-31] MEDS: hydrALAZINE HCL 20 MG/1 ML VIAL IV PRN (01:36)
[2023-10-31 04:00] VITALS: BP 145/82; TEMP 97.6; O2SAT 96
[2023-10-31 07:12] LABS: BASOPHILS % (AUTO) 0.5 % (0.0-2.0); EOSINOPHILS % (AUTO) 0.1 % (0.0-7.0); HEMATOCRIT 33.9 % (31.2-41.9); HEMOGLOBIN 11.1 g/dL (10.9-14.3); LYMPHOCYTES # (AUTO) 0.9 K/uL (0.8-4.8); LYMPHOCYTES % (AUTO) 12.9 % (20.5-51.5); MEAN CORPUSCULAR HEMOGLOBIN 28.3 uug (24.7-32.8); MEAN CORPUSCULAR HGB CONC 33 g/dL (32.3-35.6); MEAN CORPUSCULAR VOLUME 86.3 fL (75.5-95.3); MONOCYTES # (AUTO) 0.8 K/uL (0.1-1.30); MONOCYTES % (AUTO) 11.1 % (0.0-11.0); NEUTROPHILS # (AUTO) 5.1 K/uL (1.8-8.9); NEUTROPHILS % (AUTO) 75.4 % (38.5-71.5); PLATELET COUNT (AUTO) 194 K/uL (179-408); RED BLOOD CELL COUNT(AUTO) 3.93 MIL/uL (3.63-4.92); RED CELL DISTRIBUTION WIDTH 14.1 % (12.3-17.7); WHITE BLOOD COUNT (AUTO) 6.8 K/uL (3.8-11.8)
[2023-10-31 07:18] LABS: DIFFERENTIAL COMMENT 1
[2023-10-31 07:24] LABS: CALCIUM 8.5 mg/dL (8.5-10.1); CARBON DIOXIDE 24 mmol/L (21-32); CHLORIDE 111 mmol/L (98-107); CREATININE 1.1 mg/dL (0.6-1.3); GLUCOSE 136 mg/dL (74-106); MAGNESIUM 2.1 mg/dL (1.8-2.4); PHOSPHOROUS 3.6 mg/dL (2.5-4.9); POTASSIUM 3.8 mmol/L (3.5-5.1); SODIUM SERUM 144 mmol/L (136-145); UREA NITROGEN, BLOOD 21 mg/dL (7-18)
[2023-10-31] MEDS: BENZTROPINE MESYLATE 0.5 MG TABLET PO SCH (08:09)
[2023-10-31 09:06] VITALS: BP_SYST 156; BP_SYST 157; BP_DIAS 65; BP_DIAS 77; TEMP 98.1; O2SAT 96
[2023-10-31 12:47] VITALS: BP 148/78; TEMP 97.6; O2SAT 95
[2023-10-31 15:27] VITALS: BP 142/63; TEMP 98.5; O2SAT 96
[2023-11-01 08:00] VITALS: BP 146/71; TEMP 98.4; O2SAT 95
[2023-11-01 13:43] VITALS: BP 126/63; TEMP 98; O2SAT 95
[2023-11-01] MEDS: ENOXAPARIN SODIUM 40 MG/0.4 ML DISP.SYRIN SQ SCH (16:42)
[2023-11-01 16:55] VITALS: BP 151/69; TEMP 98.1; O2SAT 96
[2023-11-01 20:00] VITALS: BP 171/91; TEMP 98.1; O2SAT 94
[2023-11-02 06:00] VITALS: BP 168/81; TEMP 98.9; O2SAT 98
[2023-11-02] MEDS: AMLODIPINE 5 MG TABLET PO SCH (08:45)
[2023-11-02 11:43] VITALS: BP 138/58; TEMP 99.3; O2SAT 96
[2023-11-02 15:46] VITALS: BP 129/70; TEMP 97.7; O2SAT 96
[2023-11-02 20:00] VITALS: BP 167/87; TEMP 98.5; O2SAT 94
[2023-11-03 06:00] VITALS: BP 132/69; TEMP 97.6; O2SAT 93
[2023-11-03 06:43] LABS: CALCIUM 8.6 mg/dL (8.5-10.1); CARBON DIOXIDE 25 mmol/L (21-32); CHLORIDE 110 mmol/L (98-107); CREATININE 1.1 mg/dL (0.6-1.3); GLUCOSE 104 mg/dL (74-106); PHOSPHOROUS 3.7 mg/dL (2.5-4.9); POTASSIUM 3.8 mmol/L (3.5-5.1); SODIUM SERUM 143 mmol/L (136-145); UREA NITROGEN, BLOOD 19 mg/dL (7-18)
[2023-11-03 06:48] LABS: C-REACTIVE PROTEIN 2.04 mg/dL (0.00-0.30)
[2023-11-03 07:06] LABS: BASOPHILS % (AUTO) 0.8 % (0.0-2.0); EOSINOPHILS # (AUTO) 0.2 K/uL (0.0-0.7); EOSINOPHILS % (AUTO) 3.1 % (0.0-7.0); HEMATOCRIT 32.2 % (31.2-41.9); HEMOGLOBIN 10.6 g/dL (10.9-14.3); LYMPHOCYTES # (AUTO) 1.3 K/uL (0.8-4.8); LYMPHOCYTES % (AUTO) 22.9 % (20.5-51.5); MEAN CORPUSCULAR HEMOGLOBIN 28.4 uug (24.7-32.8); MEAN CORPUSCULAR HGB CONC 33 g/dL (32.3-35.6); MEAN CORPUSCULAR VOLUME 85.8 fL (75.5-95.3); MONOCYTES # (AUTO) 0.8 K/uL (0.1-1.30); MONOCYTES % (AUTO) 13.1 % (0.0-11.0); NEUTROPHILS # (AUTO) 3.5 K/uL (1.8-8.9); NEUTROPHILS % (AUTO) 60.1 % (38.5-71.5); PLATELET COUNT (AUTO) 225 K/uL (179-408); RED BLOOD CELL COUNT(AUTO) 3.75 MIL/uL (3.63-4.92); RED CELL DISTRIBUTION WIDTH 13.9 % (12.3-17.7); WHITE BLOOD COUNT (AUTO) 5.8 K/uL (3.8-11.8)
[2023-11-03 07:19] LABS: DIFFERENTIAL COMMENT 1
[2023-11-03 12:01] VITALS: BP 116/71; TEMP 97.8; O2SAT 95
[2023-11-03] MEDS ORDERED: ENOX40DI SQ (15:39)
[2023-11-03] MEDS ORDERED: AMLO-212 PO (15:39)
[2023-11-03] MEDS ORDERED: HYDR20VI6 IJ (15:39)
[2023-11-03] MEDS ORDERED: DOCU100T2 PO (15:39)
[2023-11-03] MEDS ORDERED: MAGN400O6 PO (15:39)
[2023-11-03] MEDS ORDERED: ACET325T53 PO (15:39)
== END 2023-11-03 14:54 | DRG 871 ==
LOC: ER 14:46 → TELE3 20:14 → MEDSURG3 10-31 22:25
PROVIDERS: ADMIT Internal Medicine; ATTEND Internal Medicine
DX: A41.89 Other specified sepsis (principal); G93.41 Metabolic encephalopathy; U07.1 COVID-19; N17.0 Acute kidney failure with tubular necrosis; N39.0 Urinary tract infection, site not specified; F03.94 Unspecified dementia, unspecified severity, with anxiety; F03.93 Unspecified dementia, unspecified severity, with mood disturbance; N32.81 Overactive bladder; Z86.73 Personal history of transient ischemic attack (TIA), and cerebral infarction without residual deficits; Z96.643 Presence of artificial hip joint, bilateral; Z96.653 Presence of artificial knee joint, bilateral; Z88.0 Allergy status to penicillin; R97.0 Elevated carcinoembryonic antigen [CEA]; D50.9 Iron deficiency anemia, unspecified; E78.5 Hyperlipidemia, unspecified; E66.9 Obesity, unspecified; Z68.27 Body mass index [BMI] 27.0-27.9, adult; K21.9 Gastro-esophageal reflux disease without esophagitis; Z88.6 Allergy status to analgesic agent; M89.8X9 Other specified disorders of bone, unspecified site; M15.9 Polyosteoarthritis, unspecified; I10 Essential (primary) hypertension; Z79.899 Other long term (current) drug therapy; G62.9 Polyneuropathy, unspecified; G89.29 Other chronic pain
CPT/HCPCS: 36415; 70450; 71045; 74018; 82378; 82652; 83550; 83605; 83735; 84100; 84443; 84484; 85025; 86140; 87040; A4663; G0378; J0360; J0696; J1650; J7040

== ENCOUNTER 2023-11-03 15:17 | Inpatient (IN) | payer MEDICARE, OTHER ==
[~2023-11-03] VITALS: Ht 160 cm; Wt 67.1 kg
[~2023-11-03 15:17] MED LIST changes: -ACID1TAB4 PO; -CEFD300C3 PO; -DEXL60CA3 PO
[2023-11-03] MEDS ORDERED: MAGN400O6 PO (15:39)
[2023-11-03] MEDS ORDERED: ACET325T53 PO (15:39)
[2023-11-03] MEDS ORDERED: ENOX40DI SQ (15:39)
[2023-11-03] MEDS ORDERED: HYDR20VI6 IJ (15:39)
[2023-11-03] MEDS ORDERED: DOCU100T2 PO (15:39)
[2023-11-03] MEDS ORDERED: AMLO-212 PO (15:39)
[2023-11-03 16:45] VITALS: BP 130/86; TEMP 98; O2SAT 95
[2023-11-03] MEDS ORDERED: MAGNESIUM HYDROXIDE 30 ML LIQUID UDC PO PRN (17:45)
[2023-11-03] MEDS: DIVALPROEX 125 MG TABLET.DR PO SCH (18:09)
[2023-11-03] MEDS: IV NS 1000 ML 1,000 ML IV PRN (18:09)
[2023-11-03] MEDS: ENOXAPARIN SODIUM 40 MG/0.4 ML DISP.SYRIN SQ SCH (18:10)
--- NOTE | 2023-11-03 18:35 | NUR ---
ADMITTED TO [facility]U UNIT FROM [facility], WITH DIAGNOSIS OF COVID 19 INFECTION, ACUTE METABOLIC ENCEPHALOPATHY, UNDER DR. FREDERICK. PATIENT WITH HISTORY OF GERD, DEPRESSION, UTI. VITAL SIGNS CHECKED AND BODY ASSESSMENT DONE. A/OX2-3, NO RESPIRATORY DISTRESS. DENIES ANY PAIN OR DISCOMFORT. BELONGINGS LIST DONE. ALL NEEDS ATTENDED. DR. FREDERICK MADE AWARE OF ADMISSION, WITH ORDER TO CONTINUE ALL MEDICATIONS, PHARMACY MADE AWARE. DR. CUELLAR INFORMED OF ADMISSION, NO NEW ORDERS FOR PAIN MEDICATION. ENDORSED TO NEXT SHIFT.
[2023-11-03 20:30] VITALS: BP 155/76; TEMP 97.6; O2SAT 96
[2023-11-03] MEDS: LORAZEPAM 1 MG TABLET PO SCH (21:31)
[2023-11-03] MEDS: DOCUSATE SODIUM 100 MG CAPSULE PO SCH (21:31)
--- NOTE | 2023-11-04 08:30 | NUR ---
PT AWAKE AND ORIENTED TO SELF. PT ON ROOM AIR AND NO RESPIRATORY DISTRESS OBSERVED. PT ABLE TO TAKE HER PILLS WHOLE ONE BY ONE. SHE FOLLOWS DIRECTIONS BUT MOSTLY KYRGYZ SPEAKING. PT HAD HER BREAKFAST. PT KEPT CLEAN DRY. PT HAS A SAUNDERS AND DRAINS CLEAR YELLOW URINE TO GRAVITY. ALL SAFETY MEASURES MAINTAINED. WILL CONTINUE TO MONITOR.
[2023-11-04] MEDS: risperiDONE 0.5 MG TABLET PO SCH (09:05)
[2023-11-04] MEDS: BENZTROPINE MESYLATE 0.5 MG TABLET PO SCH (09:05)
[2023-11-04] MEDS: AMLODIPINE 5 MG TABLET PO SCH (09:05)
[2023-11-04] MEDS: ACETAMINOPHEN 325 MG TABLET PO PRN (09:24)
[2023-11-04 11:30] VITALS: BP 141/66; TEMP 98.6; O2SAT 97
[2023-11-04 15:54] VITALS: BP 160/79; TEMP 97.6; O2SAT 97
[2023-11-04 20:38] VITALS: BP 130/57; TEMP 98.6; O2SAT 96
--- NOTE | 2023-11-05 03:52 | NUR ---
AAOx2-3 with periods of confusion at times. All needs attended. VSS. On droplet isolation. Patient COVID(+) Trujillo catheter intact draining yellow urine. No acute distress noted. Tolerated po meds well. Kept comfortable. Denies any pain nor any discomfort.
[2023-11-05 04:32] VITALS: BP 118/48; TEMP 98.4; O2SAT 96
[2023-11-05 07:09] LABS: BASOPHILS % (AUTO) 0.5 % (0.0-2.0); EOSINOPHILS # (AUTO) 0.1 K/uL (0.0-0.7); EOSINOPHILS % (AUTO) 0.7 % (0.0-7.0); HEMATOCRIT 31.4 % (31.2-41.9); HEMOGLOBIN 10.6 g/dL (10.9-14.3); LYMPHOCYTES # (AUTO) 1.6 K/uL (0.8-4.8); LYMPHOCYTES % (AUTO) 20.2 % (20.5-51.5); MEAN CORPUSCULAR HEMOGLOBIN 28.9 uug (24.7-32.8); MEAN CORPUSCULAR HGB CONC 34 g/dL (32.3-35.6); MEAN CORPUSCULAR VOLUME 85.8 fL (75.5-95.3); MONOCYTES % (AUTO) 12.9 % (0.0-11.0); NEUTROPHILS # (AUTO) 5.2 K/uL (1.8-8.9); NEUTROPHILS % (AUTO) 65.7 % (38.5-71.5); PLATELET COUNT (AUTO) 270 K/uL (179-408); RED BLOOD CELL COUNT(AUTO) 3.65 MIL/uL (3.63-4.92); RED CELL DISTRIBUTION WIDTH 13.6 % (12.3-17.7); WHITE BLOOD COUNT (AUTO) 7.9 K/uL (3.8-11.8)
[2023-11-05 07:14] LABS: DIFFERENTIAL COMMENT 1
[2023-11-05 07:54] LABS: CALCIUM 8.9 mg/dL (8.5-10.1); CARBON DIOXIDE 27 mmol/L (21-32); CHLORIDE 106 mmol/L (98-107); CREATININE 1.2 mg/dL (0.6-1.3); GLUCOSE 115 mg/dL (74-106); MAGNESIUM 2.2 mg/dL (1.8-2.4); PHOSPHOROUS 3.5 mg/dL (2.5-4.9); POTASSIUM 3.6 mmol/L (3.5-5.1); SODIUM SERUM 141 mmol/L (136-145); UREA NITROGEN, BLOOD 17 mg/dL (7-18)
[2023-11-05 16:12] VITALS: BP 145/58; TEMP 97.8; O2SAT 97
[2023-11-05 19:56] VITALS: BP 143/60; TEMP 98.4; O2SAT 93
[2023-11-06 04:10] VITALS: BP 144/68; TEMP 98.3; O2SAT 96
--- NOTE | 2023-11-06 05:42 | NUR ---
Patient slept well most of the night. She is AOx1-2. On room air, no SOB noted. Afebrile. Trujillo catheter draining to gravity with good urine output. No BM overnight. Safety maintained. COVID isolation observed.
[2023-11-06 08:11] VITALS: BP 106/88; TEMP 100; O2SAT 96
[2023-11-06] MEDS: ENSURE ENLIVE (VAN) 240 ML LIQUID PO SCH (08:41)
--- NOTE | 2023-11-06 11:00 | NUR ---
INDIVIDUALIZED PLAN OF CARE
--- NOTE | 2023-11-06 15:07 | NUR ---
INDIVIDUALIZED PLAN OF CARE
[2023-11-06 16:06] VITALS: BP 169/63; TEMP 98.5; O2SAT 94
[2023-11-06] MEDS: hydrALAZINE HCL 20 MG/1 ML VIAL IV PRN (17:07)
[2023-11-06 18:53] LABS: *OCCULT BLOOD STOOL NEGATIVE (NEGATIVE)
[2023-11-06 19:00] VITALS: BP 148/79; TEMP 98.9; O2SAT 95
[2023-11-07 06:00] VITALS: BP 148/75; TEMP 98.6; O2SAT 95
[2023-11-07 06:38] LABS: BASOPHILS # (AUTO) 0.1 K/UL (0.0-0.2); BASOPHILS % (AUTO) 0.8 % (0.0-2.0); EOSINOPHILS # (AUTO) 0.1 K/uL (0.0-0.7); EOSINOPHILS % (AUTO) 1.8 % (0.0-7.0); HEMOGLOBIN 10.4 g/dL (10.9-14.3); LYMPHOCYTES # (AUTO) 1.8 K/uL (0.8-4.8); LYMPHOCYTES % (AUTO) 23.6 % (20.5-51.5); MEAN CORPUSCULAR HEMOGLOBIN 28.6 uug (24.7-32.8); MEAN CORPUSCULAR HGB CONC 33 g/dL (32.3-35.6); MEAN CORPUSCULAR VOLUME 85.4 fL (75.5-95.3); MONOCYTES # (AUTO) 1.1 K/uL (0.1-1.30); MONOCYTES % (AUTO) 14.5 % (0.0-11.0); NEUTROPHILS # (AUTO) 4.4 K/uL (1.8-8.9); NEUTROPHILS % (AUTO) 59.3 % (38.5-71.5); PLATELET COUNT (AUTO) 356 K/uL (179-408); RED BLOOD CELL COUNT(AUTO) 3.63 MIL/uL (3.63-4.92); RED CELL DISTRIBUTION WIDTH 13.7 % (12.3-17.7); WHITE BLOOD COUNT (AUTO) 7.5 K/uL (3.8-11.8)
[2023-11-07 06:40] LABS: DIFFERENTIAL COMMENT 1
[2023-11-07 06:46] LABS: C-REACTIVE PROTEIN 9.64 mg/dL (0.00-0.30); CALCIUM 8.8 mg/dL (8.5-10.1); CARBON DIOXIDE 29 mmol/L (21-32); CHLORIDE 106 mmol/L (98-107); CREATININE 1.1 mg/dL (0.6-1.3); GLUCOSE 99 mg/dL (74-106); MAGNESIUM 2.3 mg/dL (1.8-2.4); PHOSPHOROUS 3.6 mg/dL (2.5-4.9); POTASSIUM 3.9 mmol/L (3.5-5.1); SODIUM SERUM 143 mmol/L (136-145); UREA NITROGEN, BLOOD 22 mg/dL (7-18)
--- NOTE | 2023-11-07 07:30 | NUR ---
assumed patient care from shift production associate rn, patient noted resting, no distress noted
--- NOTE | 2023-11-07 09:25 | NUR ---
patient fed breakfast, denies pain, bowel movement noted, perineal care provided, tolerated all medications, vitals signs are stable
[2023-11-07 15:16] VITALS: BP 115/53; TEMP 98.7; O2SAT 94
[2023-11-07 21:34] VITALS: BP 146/70; TEMP 97.9; O2SAT 94
[2023-11-08 04:00] VITALS: BP 136/66; TEMP 98.2; O2SAT 92
--- NOTE | 2023-11-08 07:15 | NUR ---
RECEIVED PATIENT AWAKE ON BED, A/OX2-3, NO COMPLAINTS OF PAIN OR DISCOMFORT AT THIS TIME. ON RA, NO SOB NOTED. WITH IV AT RFA, INTACT. WITH SAUNDERS CATHETER INTACT, DRAINING TO YELLOW COLORED URINE. FALL AND SAFETY PRECAUTIONS IN PLACE. CALL LIGHT AND TABLE WITHIN REACH.
[2023-11-08 16:00] VITALS: BP 118/60; TEMP 99.3; O2SAT 98
--- NOTE | 2023-11-08 17:33 | NUR ---
PATIENT'S BP 118/60, HR 108. NO COMPLAINTS OF PAIN AT THIS TIME. PATIENT ABLE TO TOLERATE PO MEDS WELL, NO SWALLOWING DIFFICULTY NOTED. PATIENT ABLE TO TOLERATE PT/OT WELL. KEPT SAFE AND COMFORTABLE. ALL NEEDS ATTENDED.
[2023-11-08 19:00] VITALS: BP 135/59; TEMP 99.2; O2SAT 95
--- NOTE | 2023-11-08 19:30 | NUR ---
NSG: RECEIVED PT LYING IN BED ALERT AND ORIENTED X2, ON ROOM AIR AND NO RESPIRATORY DISTRESS OBSERVED. PRYDEINIG SPEAKING. SAUNDERS CATH IN PLACE. DRAINING CLEAR YELLOW URINE TO GRAVITY. ALL SAFETY MEASURES MAINTAINED. BED ALARM ON ,CALL LIGHT W/IN REACH.
--- NOTE | 2023-11-09 05:47 | NUR ---
NSG: Patient slept well through the night. remain alert and oriented x2. On room air, no SOB noted. Afebrile. Trujillo catheter draining yellow urine to gravity . assisted with adl's. Safety maintained. call light w/in reach.
[2023-11-09 06:00] VITALS: BP 151/74; TEMP 97.7; O2SAT 94
--- NOTE | 2023-11-09 07:20 | NUR ---
RECEIVED PATIENT ASLEEP ON BED, EASILY AROUSABLE, A/OX2-3, NO COMPLAINTS OF PAIN OR DISCOMFORT AT THIS TIME. ON RA, NO SOB OR DISTRESS NOTED. WITH IV AT RFA, INTACT. WITH SAUNDERS CATHETER INTACT, DRAINING TO YELLOW COLORED URINE. FALL AND SAFETY PRECAUTIONS IN PLACE. CALL LIGHT AND TABLE WITHIN REACH.
[2023-11-09] MEDS: ENSURE ENLIVE (VAN) 240 ML LIQUID PO SCH (12:11)
--- NOTE | 2023-11-09 14:13 | NUR ---
INTERDISCIPLINARY TEAM CONFERENCE
[2023-11-09 15:14] VITALS: BP 118/59; TEMP 98.2; O2SAT 99
--- NOTE | 2023-11-09 18:38 | NUR ---
PATIENT'S BP 118/59, HR 99. NO COMPLAINTS OF PAIN AT THIS TIME. PATIENT ABLE TO TOLERATE PO MEDS WELL, NO SWALLOWING DIFFICULTY NOTED. PATIENT ABLE TO TOLERATE PT/OT WELL. KEPT SAFE AND COMFORTABLE. ALL NEEDS ATTENDED.
[2023-11-09 19:00] VITALS: BP 127/63; TEMP 98.2; O2SAT 93
--- NOTE | 2023-11-09 19:45 | NUR ---
Received pt resting comfortably in bed. AO2. No complaints of pain, chest pain, or SOB noted. VSS. Skin intact. FC in place and flowing. Safety precautions in place. Bed in lowest position with side rails up. Bed alarm on. Call light within reach. All needs attended to.
[2023-11-10 06:00] VITALS: BP 156/77; TEMP 99; O2SAT 95
--- NOTE | 2023-11-10 07:00 | NUR ---
Patient in bed, awake. Pleasant. alert and oriented x2. stated her stomache hurt. Advised that simethicone tabs were ordered and would be brought in with morning meds. Trujillo draining clear yellow urine. Patient on room air. No signs of acute distress noted.
[2023-11-10 07:53] LABS: BASOPHILS # (AUTO) 0.1 K/UL (0.0-0.2); BASOPHILS % (AUTO) 0.8 % (0.0-2.0); EOSINOPHILS # (AUTO) 0.3 K/uL (0.0-0.7); EOSINOPHILS % (AUTO) 3.7 % (0.0-7.0); HEMATOCRIT 31.4 % (31.2-41.9); HEMOGLOBIN 10.4 g/dL (10.9-14.3); LYMPHOCYTES # (AUTO) 1.8 K/uL (0.8-4.8); LYMPHOCYTES % (AUTO) 21.4 % (20.5-51.5); MEAN CORPUSCULAR HEMOGLOBIN 28.4 uug (24.7-32.8); MEAN CORPUSCULAR HGB CONC 33 g/dL (32.3-35.6); MEAN CORPUSCULAR VOLUME 85.8 fL (75.5-95.3); MONOCYTES # (AUTO) 0.9 K/uL (0.1-1.30); MONOCYTES % (AUTO) 9.8 % (0.0-11.0); NEUTROPHILS # (AUTO) 5.6 K/uL (1.8-8.9); NEUTROPHILS % (AUTO) 64.3 % (38.5-71.5); PLATELET COUNT (AUTO) 439 K/uL (179-408); RED BLOOD CELL COUNT(AUTO) 3.66 MIL/uL (3.63-4.92); RED CELL DISTRIBUTION WIDTH 13.9 % (12.3-17.7); WHITE BLOOD COUNT (AUTO) 8.6 K/uL (3.8-11.8)
[2023-11-10 07:57] LABS: CALCIUM 9.2 mg/dL (8.5-10.1); CARBON DIOXIDE 27 mmol/L (21-32); CHLORIDE 106 mmol/L (98-107); CREATININE 1.3 mg/dL (0.6-1.3); GLUCOSE 101 mg/dL (74-106); MAGNESIUM 2.4 mg/dL (1.8-2.4); PHOSPHOROUS 3.7 mg/dL (2.5-4.9); SODIUM SERUM 143 mmol/L (136-145); UREA NITROGEN, BLOOD 35 mg/dL (7-18)
[2023-11-10 08:00] LABS: DIFFERENTIAL COMMENT 1
[2023-11-10] MEDS: SIMETHICONE 80 MG TAB.CHEW PO PRN (09:19)
[2023-11-10 16:00] VITALS: BP 141/74; TEMP 97; O2SAT 98
[2023-11-10 21:00] VITALS: TEMP 99.1
[2023-11-11 04:00] VITALS: TEMP 98.1
--- NOTE | 2023-11-11 07:00 | NUR ---
received patient lying in bed awake. Calm, pleasant, alert and oriented x 1. Able to answer appropriately to simple questions. Trujillo draining clear, yellow urine. patient on room air. No signs of acute distress noted. all needs met. Whiteboard updated
[2023-11-11 07:58] LABS: BASOPHILS # (AUTO) 0.1 K/UL (0.0-0.2); EOSINOPHILS # (AUTO) 0.3 K/uL (0.0-0.7); EOSINOPHILS % (AUTO) 2.8 % (0.0-7.0); HEMATOCRIT 32.2 % (31.2-41.9); HEMOGLOBIN 10.7 g/dL (10.9-14.3); LYMPHOCYTES # (AUTO) 1.7 K/uL (0.8-4.8); LYMPHOCYTES % (AUTO) 19.1 % (20.5-51.5); MEAN CORPUSCULAR HEMOGLOBIN 28.4 uug (24.7-32.8); MEAN CORPUSCULAR HGB CONC 33 g/dL (32.3-35.6); MEAN CORPUSCULAR VOLUME 85.4 fL (75.5-95.3); NEUTROPHILS # (AUTO) 5.9 K/uL (1.8-8.9); NEUTROPHILS % (AUTO) 66.1 % (38.5-71.5); PLATELET COUNT (AUTO) 484 K/uL (179-408); RED BLOOD CELL COUNT(AUTO) 3.77 MIL/uL (3.63-4.92); RED CELL DISTRIBUTION WIDTH 13.8 % (12.3-17.7); WHITE BLOOD COUNT (AUTO) 8.9 K/uL (3.8-11.8)
[2023-11-11 08:04] LABS: DIFFERENTIAL COMMENT 1
[2023-11-11 08:07] LABS: ALANINE AMINOTRANSFERASE 68 U/L (14-59); ALBUMIN 2.9 g/dL (3.4-5.0); ALKALINE PHOSPHATASE 69 U/L (50-136); ASPARTATE AMINOTRANSFERASE 17 U/L (15-37); BILIRUBIN,TOTAL 0.4 mg/dL (0.2-1.0); CALCIUM 9.7 mg/dL (8.5-10.1); CARBON DIOXIDE 29 mmol/L (21-32); CHLORIDE 105 mmol/L (98-107); CREATININE 1.1 mg/dL (0.6-1.3); GLUCOSE 108 mg/dL (74-106); MAGNESIUM 2.6 mg/dL (1.8-2.4); PHOSPHOROUS 4.1 mg/dL (2.5-4.9); POTASSIUM 4.4 mmol/L (3.5-5.1); SODIUM SERUM 143 mmol/L (136-145); TOTAL PROTEIN, SERUM 7.5 g/dL (6.4-8.2); UREA NITROGEN, BLOOD 30 mg/dL (7-18)
[2023-11-11 15:56] VITALS: BP 103/59; TEMP 98.9; O2SAT 94
[2023-11-11 19:58] VITALS: BP 100/51; TEMP 98.2; O2SAT 95
[2023-11-12 06:00] VITALS: BP 134/59; TEMP 98.1; O2SAT 98
[2023-11-12 16:49] VITALS: BP 120/52; TEMP 99.4; O2SAT 94
--- NOTE | 2023-11-12 18:22 | NUR ---
MED. SURG: Nursing Notes: Memory: Patient is awake and responding to her name, but selective mute at times. Ambulatory with physical therapist and fww, on fall precautions, A/Ox1, disoriented, impaired judgment, poor insight, forgetful, compliant with her medications, cooperative with nursing care, continue to monitor for safety, continue with treatment plan.
--- NOTE | 2023-11-12 19:10 | NUR ---
Received pt resting in bed. A&O 1-2, patient is reoriented in time and space. On room air saturating 96% No sigsn or symptons of SOB or distress is noted. VS stable. Sacrum redness, optifoam is used to protection. Trujillo Catheter patent and draining clear yellow urine. Denies pain. Safety precautions in place. Safety measures are applied. Call light within reach. All needs attended.
[2023-11-12 21:53] VITALS: BP 109/59; TEMP 98.3; O2SAT 94
--- NOTE | 2023-11-12 22:00 | NUR ---
Patient received and tolerated PO night time routine medication. Safety measures are continued.
[2023-11-13 05:43] VITALS: BP 117/73; TEMP 98.7; O2SAT 96
--- NOTE | 2023-11-13 07:15 | NUR ---
Received pt laying in bed. Pt is A&O 1-2, patient is reoriented in time and space. Pt is confused and forgetful but is cooperative with care. No signs or symptoms of SOB or distress is noted. VS stable. Sacrum redness, Optifoam is used to protection. Trujillo Catheter patent and draining clear yellow urine. Safety precautions in place. Safety measures are applied. Call light within reach. All needs attended.
--- NOTE | 2023-11-13 10:00 | NUR ---
Patient received and tolerated PO morning routine medications. All needs are covered. Safety measures are continued.
--- NOTE | 2023-11-13 18:30 | NUR ---
Patient received and tolerated PO evening routine medications and his dinner. All needs are covered. No acute distress noted at this time, vital signs are stable and pt denies pain. Safety measures are continued.
--- NOTE | 2023-11-13 20:00 | NUR ---
NSG: RECEIVED PT LYING IN BED ALERT AND ORIENTED X2, ON ROOM AIR AND NO RESPIRATORY DISTRESS OBSERVED. [place] SPEAKING. SAUNDERS CATH IN PLACE. DRAINING CLEAR YELLOW URINE TO GRAVITY. ALL SAFETY MEASURES MAINTAINED. BED ALARM ON ,CALL LIGHT W/IN REACH.
[2023-11-13 20:36] VITALS: BP 122/58; TEMP 97.8; O2SAT 94
--- NOTE | 2023-11-14 03:53 | NUR ---
NSG: pt resting in bed comfortably .Remain alert and oriented x2. denies complaints of pain, chest pain, or SOB. F/C in place and draining yellow urine. Safety precautions in place. assisted with adl's. repositioned for skin safety and comfort. kept clean and dry.Bed in lowest position with side rails up. Bed alarm on. Call light within reach.
[2023-11-14 06:03] VITALS: BP 137/80; TEMP 98.9; O2SAT 99
[2023-11-14 09:00] VITALS: BP 132/51; TEMP 98.6; O2SAT 97
[2023-11-14 15:49] VITALS: BP 130/64; TEMP 97.7; O2SAT 97
--- NOTE | 2023-11-14 18:57 | NUR ---
PT GRANDDAUGHTER IS VISITING AND PER GRANDDAUGHTER PT APPEARS MORE CONFUSED THAN USUAL. FAMILY's CONCERN WAS COMMUNICATED WITH DR. LUIS.
--- NOTE | 2023-11-14 19:40 | NUR ---
Patient in bed with eyes closed, easy to arouse alert and oriented x1. Respiration even and unlabored. Trujillo cath intact and draining well to yellow color urine output. Safety measures in place.
[2023-11-14 20:22] LABS: BASOPHILS # (AUTO) 0.1 K/UL (0.0-0.2); BASOPHILS % (AUTO) 1.1 % (0.0-2.0); EOSINOPHILS # (AUTO) 0.1 K/uL (0.0-0.7); EOSINOPHILS % (AUTO) 0.7 % (0.0-7.0); HEMATOCRIT 32.8 % (31.2-41.9); HEMOGLOBIN 10.6 g/dL (10.9-14.3); LYMPHOCYTES # (AUTO) 1.4 K/uL (0.8-4.8); MEAN CORPUSCULAR HEMOGLOBIN 27.6 uug (24.7-32.8); MEAN CORPUSCULAR HGB CONC 32 g/dL (32.3-35.6); MEAN CORPUSCULAR VOLUME 85.5 fL (75.5-95.3); MONOCYTES # (AUTO) 1.4 K/uL (0.1-1.30); MONOCYTES % (AUTO) 13.1 % (0.0-11.0); NEUTROPHILS # (AUTO) 7.6 K/uL (1.8-8.9); NEUTROPHILS % (AUTO) 72.1 % (38.5-71.5); PLATELET COUNT (AUTO) 531 K/uL (179-408); RED BLOOD CELL COUNT(AUTO) 3.84 MIL/uL (3.63-4.92); WHITE BLOOD COUNT (AUTO) 10.5 K/uL (3.8-11.8)
[2023-11-14 20:25] LABS: DIFFERENTIAL COMMENT 1
[2023-11-14 20:35] LABS: ALANINE AMINOTRANSFERASE 32 U/L (14-59); ALBUMIN 2.9 g/dL (3.4-5.0); ALKALINE PHOSPHATASE 69 U/L (50-136); ASPARTATE AMINOTRANSFERASE 7 U/L (15-37); BILIRUBIN,TOTAL 0.3 mg/dL (0.2-1.0); CALCIUM 9.4 mg/dL (8.5-10.1); CARBON DIOXIDE 25 mmol/L (21-32); CHLORIDE 102 mmol/L (98-107); CREATININE 1.5 mg/dL (0.6-1.3); GLUCOSE 172 mg/dL (74-106); POTASSIUM 4.3 mmol/L (3.5-5.1); SODIUM SERUM 140 mmol/L (136-145); TOTAL PROTEIN, SERUM 7.5 g/dL (6.4-8.2); UREA NITROGEN, BLOOD 50 mg/dL (7-18)
[2023-11-14 21:15] VITALS: BP 101/61; TEMP 99.5; O2SAT 95
[2023-11-14 23:47] LABS: *BILIRUBIN,URIN NEGATIVE (NEGATIVE); *CLARITY,URINE CLEAR (CLEAR); *COLOR,URINE YELLOW (YELLOW); *KETONES,URINE NEGATIVE (NEGATIVE); *PROTEIN,URINE NEGATIVE (NEGATIVE); *UROBILINOGEN,URINE 0.2 E.U./dl (NORMAL); LEUKOCYTE ESTERASE ,URINE NEGATIVE (NEGATIVE); NITRITE, URINE NEGATIVE (NEGATIVE); PH,URINE 5.5 (5.0-8.0); UGLUCOSE NEGATIVE (NEGATIVE)
[2023-11-14 23:49] LABS: *BLOOD, URINE TRACE (NEGATIVE)
[2023-11-15 00:10] LABS: BACTERIA,URINE FEW /HPF (NONE SEEN); SQUAMOUS EPITHELIAL CELL,UR FEW /HPF (NONE SEEN); URIC ACID CRYSTALS,URINE FEW /HPF (NONE SEEN); WBC,URINE NONE SEEN /HPF (0-3); YEAST,URINE FEW /HPF (NONE SEEN)
[2023-11-15] MEDS: IV NS 1000 ML 1,000 ML IV PRN (02:37)
[2023-11-15 06:55] LABS: BASOPHILS # (AUTO) 0.1 K/UL (0.0-0.2); BASOPHILS % (AUTO) 0.6 % (0.0-2.0); EOSINOPHILS % (AUTO) 0.4 % (0.0-7.0); HEMATOCRIT 33.1 % (31.2-41.9); HEMOGLOBIN 10.8 g/dL (10.9-14.3); LYMPHOCYTES # (AUTO) 1.6 K/uL (0.8-4.8); LYMPHOCYTES % (AUTO) 17.5 % (20.5-51.5); MEAN CORPUSCULAR HGB CONC 33 g/dL (32.3-35.6); MEAN CORPUSCULAR VOLUME 85.7 fL (75.5-95.3); MONOCYTES # (AUTO) 1.3 K/uL (0.1-1.30); MONOCYTES % (AUTO) 14.1 % (0.0-11.0); NEUTROPHILS # (AUTO) 6.1 K/uL (1.8-8.9); NEUTROPHILS % (AUTO) 67.4 % (38.5-71.5); PLATELET COUNT (AUTO) 531 K/uL (179-408); RED BLOOD CELL COUNT(AUTO) 3.86 MIL/uL (3.63-4.92); WHITE BLOOD COUNT (AUTO) 9.1 K/uL (3.8-11.8)
[2023-11-15 07:13] LABS: ALANINE AMINOTRANSFERASE 26 U/L (14-59); ALBUMIN 2.8 g/dL (3.4-5.0); ALKALINE PHOSPHATASE 58 U/L (50-136); ASPARTATE AMINOTRANSFERASE < 5 U/L (15-37); BILIRUBIN,TOTAL 0.3 mg/dL (0.2-1.0); CALCIUM 9.3 mg/dL (8.5-10.1); CARBON DIOXIDE 27 mmol/L (21-32); CHLORIDE 106 mmol/L (98-107); CREATININE 1.3 mg/dL (0.6-1.3); GLUCOSE 127 mg/dL (74-106); MAGNESIUM 2.6 mg/dL (1.8-2.4); PHOSPHOROUS 4.5 mg/dL (2.5-4.9); POTASSIUM 4.3 mmol/L (3.5-5.1); SODIUM SERUM 141 mmol/L (136-145); TOTAL PROTEIN, SERUM 7.3 g/dL (6.4-8.2); UREA NITROGEN, BLOOD 45 mg/dL (7-18)
--- NOTE | 2023-11-15 07:15 | NUR ---
Slept well throughout the night, no noted signs of distress. IVF infusing well. Trujillo cath with adequate yellow color urine output. Needs assessed and attended to.
[2023-11-15 07:20] LABS: DIFFERENTIAL COMMENT 1
--- NOTE | 2023-11-15 09:40 | NUR ---
Pt. received with no signs of distress or any pain, remains confused and needs a lot of encouragements to follow simple direct commands, PT seen pt. and tolerated the exercises given. Will continue to monitor for any significant changes.
[2023-11-15 15:10] VITALS: BP 123/75; TEMP 98.1; O2SAT 96
[2023-11-15] MEDS: BENZTROPINE MESYLATE 0.5 MG TABLET PO SCH (17:45)
--- NOTE | 2023-11-15 18:29 | NUR ---
Pt. remains comfortable and no signs of distress noted at this time, assisted pt with every meals and also needed a lot of encouragements when taking medication PO. PT. kept clean and comfortable, all needs attended and anticipated.
[2023-11-15 20:00] VITALS: BP 110/51; TEMP 100.6; O2SAT 92
[2023-11-16 02:34] VITALS: TEMP 98.7
[2023-11-16 06:00] VITALS: BP 133/73; TEMP 98.8; O2SAT 94
--- NOTE | 2023-11-16 06:09 | NUR ---
Slept @ long intervals, no noted signs of pain/discomfort, not in respiratory distress. Trujillo cath draining well. IVF infusing well with no signs of fluid overload. Needs assessed and attended to.
[2023-11-16 06:49] LABS: BASOPHILS # (AUTO) 0.1 K/UL (0.0-0.2); BASOPHILS % (AUTO) 0.8 % (0.0-2.0); EOSINOPHILS # (AUTO) 0.1 K/uL (0.0-0.7); EOSINOPHILS % (AUTO) 1.9 % (0.0-7.0); HEMATOCRIT 30.9 % (31.2-41.9); HEMOGLOBIN 9.9 g/dL (10.9-14.3); LYMPHOCYTES # (AUTO) 1.8 K/uL (0.8-4.8); LYMPHOCYTES % (AUTO) 23.5 % (20.5-51.5); MEAN CORPUSCULAR HEMOGLOBIN 27.8 uug (24.7-32.8); MEAN CORPUSCULAR HGB CONC 32 g/dL (32.3-35.6); MEAN CORPUSCULAR VOLUME 86.6 fL (75.5-95.3); MONOCYTES % (AUTO) 12.7 % (0.0-11.0); NEUTROPHILS # (AUTO) 4.6 K/uL (1.8-8.9); NEUTROPHILS % (AUTO) 61.1 % (38.5-71.5); PLATELET COUNT (AUTO) 461 K/uL (179-408); RED BLOOD CELL COUNT(AUTO) 3.56 MIL/uL (3.63-4.92); RED CELL DISTRIBUTION WIDTH 14.2 % (12.3-17.7); WHITE BLOOD COUNT (AUTO) 7.6 K/uL (3.8-11.8)
[2023-11-16 06:57] LABS: DIFFERENTIAL COMMENT 1
[2023-11-16 07:22] LABS: CALCIUM 9.2 mg/dL (8.5-10.1); CARBON DIOXIDE 26 mmol/L (21-32); CHLORIDE 109 mmol/L (98-107); CREATININE 1.2 mg/dL (0.6-1.3); GLUCOSE 99 mg/dL (74-106); MAGNESIUM 2.7 mg/dL (1.8-2.4); POTASSIUM 4.2 mmol/L (3.5-5.1); SODIUM SERUM 144 mmol/L (136-145); UREA NITROGEN, BLOOD 44 mg/dL (7-18)
--- NOTE | 2023-11-16 07:25 | NUR ---
RECEIVED PATIENT ASLEEP ON BED, EASILY AROUSABLE, A/OX2, NO COMPLAINTS OF PAIN OR DISCOMFORT AT THIS TIME. ON RA, NO SOB OR DISTRESS NOTED. WITH IV AT RFA, INTACT, RUNNING WITH IVF. WITH SAUNDERS CATHETER INTACT, DRAINING TO YELLOW COLORED URINE. FALL AND SAFETY PRECAUTIONS IN PLACE. CALL LIGHT AND TABLE WITHIN REACH.
[2023-11-16 07:54] LABS: C-REACTIVE PROTEIN 4.79 mg/dL (0.00-0.30)
--- NOTE | 2023-11-16 11:07 | NUR ---
DR. CUELLAR WITH ORDERS FOR DISCHARGE TO HOME WITH HOME HEALTH. HOSPITALIST HUSAM AWARE OF DC ORDER. PLACED ON BLADDER TRAINING PRIOR TO FC REMOVAL.
[2023-11-16 15:05] VITALS: BP 121/70; TEMP 97.7; O2SAT 95
--- NOTE | 2023-11-16 17:40 | NUR ---
PATIENT WAS DISCHARGED TO HOME WITH HOME HEALTH. PICKED UP BY FAMILY VIA PRIVATE CAR. DISCHARGE MEDICATIONS AND F/U INSTRUCTIONS GIVEN TO PATIENT AND GRANDDAUGHTER, VERBALIZED UNDERSTANDING. REMOVED WRIST BAND. REMOVED IV ASEPTICALLY. PATIENT ABLE TO VOID FREELY AFTER FC REMOVAL. ALL BELONGINGS AND VALUABLES ACCOUNTED FOR. PATIENT TEACHING PROVIDED INCLUDING F/U WITH PCP, VERBALIZED UNDERSTANDING. ASSISTED PATIENT OUT OF THE UNIT AND TO THE CAR. PATIENT STABLE UPON DISCHARGE.
== END 2023-11-16 17:40 | disposition home health service (06) | DRG 871 ==
PROVIDERS: ADMIT Physical Medicine & Rehabilitation Pain Medicine; ATTEND Physical Medicine & Rehabilitation Pain Medicine
DX: A41.9 Sepsis, unspecified organism (principal); G92.8 Other toxic encephalopathy; U07.1 COVID-19; N17.0 Acute kidney failure with tubular necrosis; F01.53 Vascular dementia, unspecified severity, with mood disturbance; F01.54 Vascular dementia, unspecified severity, with anxiety; D50.9 Iron deficiency anemia, unspecified; E78.5 Hyperlipidemia, unspecified; F32.A Depression, unspecified; I12.9 Hypertensive chronic kidney disease with stage 1 through stage 4 chronic kidney disease, or unspecified chronic kidney disease; N18.9 Chronic kidney disease, unspecified; K21.9 Gastro-esophageal reflux disease without esophagitis; M19.90 Unspecified osteoarthritis, unspecified site; I69.398 Other sequelae of cerebral infarction; G93.89 Other specified disorders of brain; Z96.653 Presence of artificial knee joint, bilateral; Z87.440 Personal history of urinary (tract) infections; R73.9 Hyperglycemia, unspecified; Z88.5 Allergy status to narcotic agent; Z68.26 Body mass index [BMI] 26.0-26.9, adult; E66.9 Obesity, unspecified
CPT/HCPCS: 36415; 71045; 83735; 84100; 85025; 86140; A4663; A6213; J0360; J1650; J7040

== ENCOUNTER 2023-11-20 12:57 | Inpatient (IN) | payer MEDICARE, OTHER ==
[~2023-11-20] VITALS: Ht 167.6 cm; Wt 79.4 kg
[~2023-11-20 12:57] MED LIST changes: +ACET325T53 PO; +AMLO-212 PO; +DOCU100T2 PO; +ENOX40DI SQ; +HYDR20VI6 IJ; +MAGN400O6 PO; -MIRA50TA PO
[2023-11-20] MEDS ORDERED: LOSA50TA39 PO (13:29)
[2023-11-20] MEDS: IV NORMAL SALINE 1000 ML BAG IV ONE (13:40)
[2023-11-20 13:50] LABS: CALCIUM 9.3 mg/dL (8.5-10.1); CARBON DIOXIDE 24 mmol/L (21-32); CHLORIDE 114 mmol/L (98-107); CREATININE 1.5 mg/dL (0.6-1.3); GLUCOSE 143 mg/dL (74-106); POTASSIUM 4.2 mmol/L (3.5-5.1); SODIUM SERUM 153 mmol/L (136-145); UREA NITROGEN, BLOOD 49 mg/dL (7-18)
[2023-11-20] MEDS ORDERED: ACETAMINOPHEN 325 MG SUPP ONE (13:50)
[2023-11-20] MEDS: ACETAMINOPHEN 650 MG SUPP.RECT RC ONE (13:51)
[2023-11-20 13:55] LABS: *BILIRUBIN,URIN NEGATIVE (NEGATIVE); *BLOOD, URINE 2+ (NEGATIVE); *CLARITY,URINE CLOUDY (CLEAR); *COLOR,URINE YELLOW (YELLOW); *KETONES,URINE NEGATIVE (NEGATIVE); *PROTEIN,URINE 2+ (NEGATIVE); *UROBILINOGEN,URINE 0.2 E.U./dl (NORMAL); LEUKOCYTE ESTERASE ,URINE 3+ (NEGATIVE); NITRITE, URINE POSITIVE (NEGATIVE); PH,URINE 5.5 (5.0-8.0); UGLUCOSE NEGATIVE (NEGATIVE)
[2023-11-20 14:04] LABS: ALANINE AMINOTRANSFERASE 39 U/L (14-59); ALBUMIN 2.6 g/dL (3.4-5.0); ALKALINE PHOSPHATASE 57 U/L (50-136); ASPARTATE AMINOTRANSFERASE 14 U/L (15-37); BILIRUBIN,DIRECT 0.1 mg/dL (0.0-0.2); BILIRUBIN,TOTAL 0.3 mg/dL (0.2-1.0); NT-PRO BNP 705 pg/mL (0-125); TOTAL PROTEIN, SERUM 7.4 g/dL (6.4-8.2)
[2023-11-20 14:11] LABS: BACTERIA,URINE MANY /HPF (NONE SEEN); SQUAMOUS EPITHELIAL CELL,UR FEW /HPF (NONE SEEN); WBC,URINE TNTC /HPF (0-3)
[2023-11-20 14:16] LABS: BASOPHILS # (AUTO) 0.1 K/UL (0.0-0.2); BASOPHILS % (AUTO) 0.6 % (0.0-2.0); EOSINOPHILS % (AUTO) 0.1 % (0.0-7.0); HEMATOCRIT 36.9 % (31.2-41.9); HEMOGLOBIN 11.6 g/dL (10.9-14.3); LYMPHOCYTES % (AUTO) 14.2 % (20.5-51.5); MEAN CORPUSCULAR HEMOGLOBIN 27.2 uug (24.7-32.8); MEAN CORPUSCULAR HGB CONC 31 g/dL (32.3-35.6); MEAN CORPUSCULAR VOLUME 86.6 fL (75.5-95.3); MONOCYTES # (AUTO) 1.4 K/uL (0.1-1.30); MONOCYTES % (AUTO) 9.8 % (0.0-11.0); NEUTROPHILS # (AUTO) 10.5 K/uL (1.8-8.9); NEUTROPHILS % (AUTO) 75.3 % (38.5-71.5); PLATELET COUNT (AUTO) 360 K/uL (179-408); RED BLOOD CELL COUNT(AUTO) 4.26 MIL/uL (3.63-4.92); RED CELL DISTRIBUTION WIDTH 14.4 % (12.3-17.7); WHITE BLOOD COUNT (AUTO) 13.9 K/uL (3.8-11.8)
[2023-11-20] MEDS ORDERED: MEROPENEM 1GM/NS 100ML IVPB **ER PYXIS ONLY IV ONE (14:26)
[2023-11-20] MEDS: MEROPENEM 1,000 MG in IV NORMAL SALINE 100 ML IV ONE (14:28)
[2023-11-20] MEDS: IV D5W 1000ML 1,000 ML IV ONE (14:29)
[2023-11-20] MEDS ORDERED: REMEDY ESSENTIAL ZINC PASTE 113 GM TP PRN (16:30)
[2023-11-20] MEDS ORDERED: ONDANSETRON 4 MG/2 ML VIAL IV PRN (16:30)
[2023-11-20 17:10] VITALS: BP 107/52; TEMP 98.4; O2SAT 92
[2023-11-20] MEDS ORDERED: RISP1TAB97 PO (17:34)
[2023-11-20] MEDS: IV D5W 1000ML 1,000 ML IV PRN (17:36)
[2023-11-20] MEDS ORDERED: SIME125T3 PO (17:37)
[2023-11-20] MEDS: CEFTRIAXONE 1 G in IV DEXTROSE 5% 50 ML IV SCH (17:42)
[2023-11-20] MEDS ORDERED: GABA300C PO (17:44)
[2023-11-20] MEDS ORDERED: DEXL60CA3 PO (17:44)
[2023-11-20] MEDS ORDERED: MIRA50TA PO (17:44)
[2023-11-20] MEDS ORDERED: MELO-107 PO (17:44)
[2023-11-20 19:00] VITALS: BP 115/52; TEMP 98.4; O2SAT 97
[2023-11-21] VITALS (7 sets, daily range): BP systolic 120–151; BP diastolic 55–70; TEMP 97.8–99; O2SAT 94–100
[2023-11-21] MEDS: PANTOPRAZOLE SODIUM 40 MG TABLET.DR PO SCH (06:01)
[2023-11-21] MEDS: ACETAMINOPHEN 325 MG TABLET PO PRN (07:01)
[2023-11-21 07:11] LABS: BASOPHILS # (AUTO) 0.1 K/UL (0.0-0.2); BASOPHILS % (AUTO) 0.5 % (0.0-2.0); EOSINOPHILS # (AUTO) 0.1 K/uL (0.0-0.7); EOSINOPHILS % (AUTO) 1.1 % (0.0-7.0); HEMATOCRIT 30.6 % (31.2-41.9); HEMOGLOBIN 9.9 g/dL (10.9-14.3); LYMPHOCYTES # (AUTO) 1.3 K/uL (0.8-4.8); LYMPHOCYTES % (AUTO) 10.3 % (20.5-51.5); MEAN CORPUSCULAR HEMOGLOBIN 28.1 uug (24.7-32.8); MEAN CORPUSCULAR HGB CONC 32 g/dL (32.3-35.6); MEAN CORPUSCULAR VOLUME 86.6 fL (75.5-95.3); MONOCYTES # (AUTO) 0.9 K/uL (0.1-1.30); MONOCYTES % (AUTO) 7.7 % (0.0-11.0); NEUTROPHILS # (AUTO) 9.9 K/uL (1.8-8.9); NEUTROPHILS % (AUTO) 80.4 % (38.5-71.5); PLATELET COUNT (AUTO) 265 K/uL (179-408); RED BLOOD CELL COUNT(AUTO) 3.53 MIL/uL (3.63-4.92); RED CELL DISTRIBUTION WIDTH 13.9 % (12.3-17.7); WHITE BLOOD COUNT (AUTO) 12.4 K/uL (3.8-11.8)
[2023-11-21 07:35] LABS: DIFFERENTIAL COMMENT 1
[2023-11-21 07:43] LABS: THYROID STIMULATING HORMONE 1.682 mIU/mL (0.358-3.740)
[2023-11-21 08:14] LABS: CALCIUM 8.3 mg/dL (8.5-10.1); CARBON DIOXIDE 23 mmol/L (21-32); CHLORIDE 107 mmol/L (98-107); CREATININE 1.1 mg/dL (0.6-1.3); GLUCOSE 157 mg/dL (74-106); MAGNESIUM 2.3 mg/dL (1.8-2.4); PHOSPHOROUS 3.6 mg/dL (2.5-4.9); POTASSIUM 4.3 mmol/L (3.5-5.1); SODIUM SERUM 142 mmol/L (136-145); UREA NITROGEN, BLOOD 38 mg/dL (7-18)
[2023-11-21] MEDS: DIVALPROEX SPRINKLE 125 MG CAP.SPRINK PO SCH (08:27)
[2023-11-21] MEDS: SIMETHICONE 40 MG/0.6 ML, 30ML BOTTLE PO SCH (10:16)
[2023-11-21] MEDS: ENOXAPARIN SODIUM 40 MG/0.4 ML DISP.SYRIN SQ SCH (12:18)
[2023-11-21] MEDS: BENZTROPINE MESYLATE 0.5 MG TABLET PO SCH (17:42)
[2023-11-22] VITALS (7 sets, daily range): BP systolic 87–148; BP diastolic 47–71; TEMP 98.1–99.5; O2SAT 82–99
[2023-11-22 06:20] LABS: *OCCULT BLOOD STOOL NEGATIVE (NEGATIVE)
[2023-11-22 07:13] LABS: BASOPHILS % (AUTO) 0.4 % (0.0-2.0); EOSINOPHILS # (AUTO) 0.2 K/uL (0.0-0.7); EOSINOPHILS % (AUTO) 2.3 % (0.0-7.0); HEMATOCRIT 29.6 % (31.2-41.9); HEMOGLOBIN 9.8 g/dL (10.9-14.3); LYMPHOCYTES # (AUTO) 1.3 K/uL (0.8-4.8); LYMPHOCYTES % (AUTO) 14.5 % (20.5-51.5); MEAN CORPUSCULAR HEMOGLOBIN 28.3 uug (24.7-32.8); MEAN CORPUSCULAR HGB CONC 33 g/dL (32.3-35.6); MEAN CORPUSCULAR VOLUME 85.3 fL (75.5-95.3); MONOCYTES # (AUTO) 0.8 K/uL (0.1-1.30); MONOCYTES % (AUTO) 9.2 % (0.0-11.0); NEUTROPHILS # (AUTO) 6.4 K/uL (1.8-8.9); NEUTROPHILS % (AUTO) 73.6 % (38.5-71.5); PLATELET COUNT (AUTO) 269 K/uL (179-408); RED BLOOD CELL COUNT(AUTO) 3.46 MIL/uL (3.63-4.92); RED CELL DISTRIBUTION WIDTH 13.6 % (12.3-17.7); WHITE BLOOD COUNT (AUTO) 8.6 K/uL (3.8-11.8)
[2023-11-22 07:34] LABS: DIFFERENTIAL COMMENT 1
[2023-11-22 07:37] LABS: IRON, SERUM 15 ug/dL (50-175)
[2023-11-22 07:51] LABS: CALCIUM 8.7 mg/dL (8.5-10.1); CARBON DIOXIDE 24 mmol/L (21-32); CHLORIDE 104 mmol/L (98-107); CREATININE 1.1 mg/dL (0.6-1.3); FERRITIN 421 ng/mL (8-252); GLUCOSE 128 mg/dL (74-106); MAGNESIUM 2.3 mg/dL (1.8-2.4); POTASSIUM 3.5 mmol/L (3.5-5.1); SODIUM SERUM 138 mmol/L (136-145); UREA NITROGEN, BLOOD 30 mg/dL (7-18)
[2023-11-23 04:00] VITALS: BP 142/74; TEMP 98.6; O2SAT 98
[2023-11-23 07:35] LABS: BASOPHILS % (AUTO) 0.5 % (0.0-2.0); EOSINOPHILS # (AUTO) 0.2 K/uL (0.0-0.7); EOSINOPHILS % (AUTO) 3.3 % (0.0-7.0); HEMATOCRIT 28.3 % (31.2-41.9); HEMOGLOBIN 9.4 g/dL (10.9-14.3); LYMPHOCYTES # (AUTO) 1.3 K/uL (0.8-4.8); LYMPHOCYTES % (AUTO) 17.4 % (20.5-51.5); MEAN CORPUSCULAR HEMOGLOBIN 28.3 uug (24.7-32.8); MEAN CORPUSCULAR HGB CONC 33 g/dL (32.3-35.6); MEAN CORPUSCULAR VOLUME 85.1 fL (75.5-95.3); MONOCYTES # (AUTO) 0.8 K/uL (0.1-1.30); MONOCYTES % (AUTO) 10.5 % (0.0-11.0); NEUTROPHILS # (AUTO) 5.2 K/uL (1.8-8.9); NEUTROPHILS % (AUTO) 68.3 % (38.5-71.5); PLATELET COUNT (AUTO) 276 K/uL (179-408); RED BLOOD CELL COUNT(AUTO) 3.33 MIL/uL (3.63-4.92); RED CELL DISTRIBUTION WIDTH 13.6 % (12.3-17.7); WHITE BLOOD COUNT (AUTO) 7.6 K/uL (3.8-11.8)
[2023-11-23 07:54] LABS: DIFFERENTIAL COMMENT 1
[2023-11-23 08:01] LABS: CALCIUM 8.9 mg/dL (8.5-10.1); CARBON DIOXIDE 28 mmol/L (21-32); CHLORIDE 105 mmol/L (98-107); CREATININE 1.2 mg/dL (0.6-1.3); GLUCOSE 118 mg/dL (74-106); POTASSIUM 3.7 mmol/L (3.5-5.1); SODIUM SERUM 139 mmol/L (136-145); UREA NITROGEN, BLOOD 27 mg/dL (7-18)
[2023-11-23 09:58] VITALS: O2SAT 98
[2023-11-23 10:57] VITALS: BP 109/95; TEMP 98.2; O2SAT 94
[2023-11-23] MEDS ORDERED: ENOX40DI SQ (14:12)
[2023-11-23] MEDS ORDERED: PANT40TA49 PO (14:12)
[2023-11-23] MEDS ORDERED: CEFT1FRO2 IV (14:12)
[2023-11-23 15:50] VITALS: BP 129/61; TEMP 97.2; O2SAT 94
== END 2023-11-23 16:20 | DRG 871 ==
LOC: ER 13:00 → TELE3 15:55 → MEDSURG3 11-21 10:30
PROVIDERS: ADMIT Nurse Practitioner Family; ATTEND Nurse Practitioner Family
DX: A41.51 Sepsis due to Escherichia coli [E. coli] (principal); G93.41 Metabolic encephalopathy; N39.0 Urinary tract infection, site not specified; E87.0 Hyperosmolality and hypernatremia; E44.0 Moderate protein-calorie malnutrition; D68.59 Other primary thrombophilia; N17.8 Other acute kidney failure; E88.09 Other disorders of plasma-protein metabolism, not elsewhere classified; Z74.09 Other reduced mobility; Z86.16 Personal history of COVID-19; E03.9 Hypothyroidism, unspecified; E78.5 Hyperlipidemia, unspecified; E66.9 Obesity, unspecified; K21.9 Gastro-esophageal reflux disease without esophagitis; M15.9 Polyosteoarthritis, unspecified; I10 Essential (primary) hypertension; Z87.01 Personal history of pneumonia (recurrent); E86.1 Hypovolemia; F03.90 Unspecified dementia, unspecified severity, without behavioral disturbance, psychotic disturbance, mood disturbance, and anxiety; R53.1 Weakness
CPT/HCPCS: 36415; 70450; 71045; 83550; 83605; 83735; 84100; 84443; 84484; 85025; 85730; 87040; 93005; A6213; G0378; J0696; J1650; J2185; J7040; J7042; J7060; J7070

== ENCOUNTER 2023-11-23 15:18 | Inpatient (IN) | payer MEDICARE, OTHER ==
[~2023-11-23] VITALS: Ht 167.6 cm; Wt 62.6 kg
[~2023-11-23 15:18] MED LIST changes: +CEFT1FRO2 IV; +DEXL60CA3 PO; +GABA300C PO; -HYDR20VI6 IJ; +LOSA50TA39 PO; -MAGN400O6 PO; +MELO-107 PO; +MIRA50TA PO; +PANT40TA49 PO; -RISP0.5T5 PO; +RISP1TAB97 PO; +SIME125T3 PO
[2023-11-23] MEDS ORDERED: LOSARTAN POTASSIUM 50 MG TABLET PO PRN (17:30)
[2023-11-23] MEDS: BENZTROPINE MESYLATE 0.5 MG TABLET PO SCH (18:38)
[2023-11-23] MEDS: CEFTRIAXONE 1 G in IV DEXTROSE 5% 50 ML IV SCH (18:39)
[2023-11-23] MEDS: DIVALPROEX SPRINKLE 125 MG CAP.SPRINK PO SCH (18:42)
[2023-11-23 19:00] VITALS: BP 143/63; TEMP 98.7; O2SAT 100
[2023-11-23] MEDS: MELOXICAM 7.5 MG TABLET PO SCH (21:09)
[2023-11-23] MEDS: risperiDONE 1 MG TABLET PO SCH (21:09)
[2023-11-23] MEDS: DOCUSATE SODIUM 100 MG CAPSULE PO SCH (21:29)
[2023-11-23 22:45] VITALS: O2SAT 99
[2023-11-24] MEDS ORDERED: REMEDY ESSENTIAL ZINC PASTE 113 GM TOP PRN (05:15)
[2023-11-24 06:00] VITALS: TEMP 98.4; O2SAT 100
[2023-11-24] MEDS: PANTOPRAZOLE SODIUM 40 MG TABLET.DR PO SCH (06:47)
[2023-11-24 08:45] VITALS: O2SAT 98
[2023-11-24] MEDS ORDERED: Medication Not On Formulary EA (Mirabegron (Myrbetriq) 50 MG) PO SCH (09:00)
[2023-11-24] MEDS: SIMETHICONE 80 MG TAB.CHEW PO SCH (09:06)
[2023-11-24] MEDS: AMLODIPINE 5 MG TABLET PO SCH (09:07)
[2023-11-24] MEDS: DOCUSATE SODIUM 100 MG CAPSULE PO SCH (09:07)
[2023-11-24] MEDS: MYRBETRIQ 50 MG PO SCH (09:07)
[2023-11-24] MEDS: [UNRECOGNIZED DRUG - OTHER] PO SCH (09:07)
[2023-11-24] MEDS: ENOXAPARIN SODIUM 40 MG/0.4 ML DISP.SYRIN SQ SCH (09:09)
[2023-11-24 15:11] VITALS: BP 103/47; TEMP 97.8; O2SAT 100
[2023-11-24 19:00] VITALS: BP 115/54; TEMP 98.9; O2SAT 100
[2023-11-24 21:27] VITALS: O2SAT 99
[2023-11-24] MEDS: AMOXIcillin 500 MG CAPSULE PO SCH (22:33)
[2023-11-25 06:00] VITALS: BP 155/69; TEMP 97.9; O2SAT 100
[2023-11-25 16:32] VITALS: BP 123/50; TEMP 98.6; O2SAT 97
[2023-11-25 20:00] VITALS: BP 124/67; TEMP 98.1; O2SAT 98
[2023-11-25] MEDS ORDERED: FAMOTIDINE 20 MG TABLET PO SCH (21:00)
[2023-11-25] MEDS: SIMETHICONE 80 MG TAB.CHEW PO SCH (21:23)
[2023-11-25] MEDS: BISACODYL 10 MG SUPP.RECT RC PRN (22:25)
[2023-11-26] MEDS: GABAPENTIN 300 MG CAPSULE PO PRN (00:39)
[2023-11-26 06:00] VITALS: BP 157/61; TEMP 98.7; O2SAT 96
[2023-11-26 06:22] LABS: BASOPHILS # (AUTO) 0.1 K/UL (0.0-0.2); BASOPHILS % (AUTO) 1.1 % (0.0-2.0); EOSINOPHILS # (AUTO) 0.4 K/uL (0.0-0.7); EOSINOPHILS % (AUTO) 6.2 % (0.0-7.0); HEMATOCRIT 27.1 % (31.2-41.9); HEMOGLOBIN 9.1 g/dL (10.9-14.3); LYMPHOCYTES # (AUTO) 1.6 K/uL (0.8-4.8); LYMPHOCYTES % (AUTO) 27.2 % (20.5-51.5); MEAN CORPUSCULAR HEMOGLOBIN 28.6 uug (24.7-32.8); MEAN CORPUSCULAR HGB CONC 34 g/dL (32.3-35.6); MEAN CORPUSCULAR VOLUME 85.4 fL (75.5-95.3); MONOCYTES # (AUTO) 0.6 K/uL (0.1-1.30); MONOCYTES % (AUTO) 9.7 % (0.0-11.0); NEUTROPHILS # (AUTO) 3.3 K/uL (1.8-8.9); NEUTROPHILS % (AUTO) 55.8 % (38.5-71.5); PLATELET COUNT (AUTO) 314 K/uL (179-408); RED BLOOD CELL COUNT(AUTO) 3.18 MIL/uL (3.63-4.92); RED CELL DISTRIBUTION WIDTH 13.6 % (12.3-17.7)
[2023-11-26 06:33] LABS: DIFFERENTIAL COMMENT 1
[2023-11-26 06:43] LABS: ALANINE AMINOTRANSFERASE 66 U/L (14-59); ALBUMIN 2.2 g/dL (3.4-5.0); ALKALINE PHOSPHATASE 71 U/L (50-136); ASPARTATE AMINOTRANSFERASE 16 U/L (15-37); BILIRUBIN,TOTAL 0.2 mg/dL (0.2-1.0); CARBON DIOXIDE 27 mmol/L (21-32); CHLORIDE 109 mmol/L (98-107); CREATININE 1.1 mg/dL (0.6-1.3); GLUCOSE 89 mg/dL (74-106); MAGNESIUM 2.4 mg/dL (1.8-2.4); PHOSPHOROUS 4.4 mg/dL (2.5-4.9); POTASSIUM 4.3 mmol/L (3.5-5.1); SODIUM SERUM 142 mmol/L (136-145); TOTAL PROTEIN, SERUM 5.8 g/dL (6.4-8.2); UREA NITROGEN, BLOOD 25 mg/dL (7-18)
[2023-11-26 11:32] VITALS: BP 110/56; TEMP 97.7; O2SAT 97
[2023-11-26 15:33] VITALS: O2SAT 99
[2023-11-26 16:16] VITALS: BP 126/48; TEMP 98.5; O2SAT 97
[2023-11-27 04:33] VITALS: O2SAT 99
[2023-11-27 06:54] VITALS: BP 120/62; TEMP 97.6; O2SAT 92
[2023-11-27 15:33] VITALS: O2SAT 95
[2023-11-27 16:00] VITALS: BP 103/51; TEMP 98.6; O2SAT 99
[2023-11-27] MEDS: SIMETHICONE 80 MG TAB.CHEW PO SCH (16:08)
[2023-11-27 22:15] VITALS: BP 131/75; TEMP 97.3; O2SAT 99
[2023-11-27] MEDS: ACETAMINOPHEN 325 MG TABLET PO PRN (22:21)
[2023-11-28 04:36] VITALS: BP 144/54; TEMP 98.2; O2SAT 97
[2023-11-28 16:00] VITALS: BP 106/49; TEMP 98.2; O2SAT 97
[2023-11-28 20:18] VITALS: BP 104/47; TEMP 98.5; O2SAT 97
[2023-11-29 06:25] VITALS: BP 122/61; TEMP 98.2; O2SAT 97
[2023-11-29 16:00] VITALS: BP 126/56; TEMP 98.2; O2SAT 97
[2023-11-29 19:00] VITALS: BP 121/61; TEMP 98.2; O2SAT 95
[2023-11-29] MEDS: LORAZEPAM 1 MG TABLET PO SCH (20:41)
[2023-11-29 23:00] VITALS: O2SAT 95
[2023-11-30 06:00] VITALS: BP 136/76; TEMP 98.2; O2SAT 96
[2023-11-30 08:32] VITALS: BP 121/57; TEMP 99.7; O2SAT 96
[2023-11-30 14:58] VITALS: BP 145/72; TEMP 98.5; O2SAT 96
[2023-11-30 15:15] VITALS: BP 134/65; TEMP 97.8; O2SAT 96
[2023-11-30 20:00] VITALS: BP 126/54; TEMP 97.9; O2SAT 98
[2023-12-01 06:45] LABS: BASOPHILS # (AUTO) 0.1 K/UL (0.0-0.2); BASOPHILS % (AUTO) 1.1 % (0.0-2.0); EOSINOPHILS # (AUTO) 0.4 K/uL (0.0-0.7); EOSINOPHILS % (AUTO) 5.8 % (0.0-7.0); HEMATOCRIT 27.4 % (31.2-41.9); HEMOGLOBIN 9.2 g/dL (10.9-14.3); LYMPHOCYTES # (AUTO) 1.6 K/uL (0.8-4.8); LYMPHOCYTES % (AUTO) 25.8 % (20.5-51.5); MEAN CORPUSCULAR HEMOGLOBIN 28.7 uug (24.7-32.8); MEAN CORPUSCULAR HGB CONC 34 g/dL (32.3-35.6); MEAN CORPUSCULAR VOLUME 85.4 fL (75.5-95.3); MONOCYTES # (AUTO) 0.6 K/uL (0.1-1.30); MONOCYTES % (AUTO) 9.1 % (0.0-11.0); NEUTROPHILS # (AUTO) 3.5 K/uL (1.8-8.9); NEUTROPHILS % (AUTO) 58.2 % (38.5-71.5); PLATELET COUNT (AUTO) 365 K/uL (179-408); RED BLOOD CELL COUNT(AUTO) 3.21 MIL/uL (3.63-4.92); RED CELL DISTRIBUTION WIDTH 14.5 % (12.3-17.7); WHITE BLOOD COUNT (AUTO) 6.1 K/uL (3.8-11.8)
[2023-12-01 06:53] LABS: DIFFERENTIAL COMMENT 1
[2023-12-01 06:55] VITALS: BP 127/55; TEMP 97.5; O2SAT 96
[2023-12-01] MEDS: ARGININE/GLUTAMINE/CALCIUM BMB 1 EACH POWD.PACK PO SCH (08:24)
[2023-12-01 15:31] VITALS: BP 132/52; TEMP 98.6; O2SAT 97
[2023-12-01 19:56] VITALS: BP 113/62; TEMP 98.8; O2SAT 93
[2023-12-02 06:42] VITALS: BP 120/51; TEMP 98.7; O2SAT 93
[2023-12-02 11:56] VITALS: BP 114/60; TEMP 97.6; O2SAT 98
[2023-12-02 15:20] VITALS: BP 109/52; TEMP 97.9; O2SAT 95
[2023-12-02 20:24] VITALS: BP 123/69; TEMP 98.3; O2SAT 97
[2023-12-02] MEDS: TRAZODONE 100 MG TABLET PO SCH (20:51)
[2023-12-03 06:30] VITALS: BP 106/49; TEMP 98.1; O2SAT 95
[2023-12-03 16:33] VITALS: BP 111/53; TEMP 97.8; O2SAT 99
[2023-12-03 20:40] VITALS: BP 138/70; TEMP 98.5; O2SAT 97
[2023-12-04 06:20] VITALS: BP 120/44; TEMP 98.2; O2SAT 97
[2023-12-04 16:07] VITALS: BP 109/57; TEMP 98.4; O2SAT 98
[2023-12-04 21:29] VITALS: BP 126/70; TEMP 98.2; O2SAT 100
[2023-12-05 05:25] VITALS: BP 130/68; TEMP 97.8; O2SAT 100
[2023-12-05 20:21] VITALS: BP 116/63; TEMP 98.1; O2SAT 98
[2023-12-06 06:40] VITALS: BP 109/46; TEMP 98.2; O2SAT 98
[2023-12-06 15:25] VITALS: BP 108/48; TEMP 97.9; O2SAT 98
[2023-12-06 20:00] VITALS: BP 124/46; TEMP 98.6; O2SAT 97
[2023-12-07 06:00] VITALS: BP 119/46; TEMP 99.6; O2SAT 96
[2023-12-07 08:10] LABS: BASOPHILS # (AUTO) 0.1 K/UL (0.0-0.2); BASOPHILS % (AUTO) 1.2 % (0.0-2.0); EOSINOPHILS # (AUTO) 0.3 K/uL (0.0-0.7); EOSINOPHILS % (AUTO) 5.1 % (0.0-7.0); HEMATOCRIT 28.8 % (31.2-41.9); HEMOGLOBIN 9.6 g/dL (10.9-14.3); LYMPHOCYTES # (AUTO) 1.4 K/uL (0.8-4.8); LYMPHOCYTES % (AUTO) 26.1 % (20.5-51.5); MEAN CORPUSCULAR HEMOGLOBIN 28.5 uug (24.7-32.8); MEAN CORPUSCULAR HGB CONC 33 g/dL (32.3-35.6); MEAN CORPUSCULAR VOLUME 85.8 fL (75.5-95.3); MONOCYTES # (AUTO) 0.5 K/uL (0.1-1.30); MONOCYTES % (AUTO) 9.9 % (0.0-11.0); NEUTROPHILS # (AUTO) 3.2 K/uL (1.8-8.9); NEUTROPHILS % (AUTO) 57.7 % (38.5-71.5); PLATELET COUNT (AUTO) 320 K/uL (179-408); RED BLOOD CELL COUNT(AUTO) 3.36 MIL/uL (3.63-4.92); RED CELL DISTRIBUTION WIDTH 14.4 % (12.3-17.7); WHITE BLOOD COUNT (AUTO) 5.5 K/uL (3.8-11.8)
[2023-12-07 08:17] LABS: DIFFERENTIAL COMMENT 1
[2023-12-07 08:32] VITALS: BP 124/51; TEMP 97.7; O2SAT 97
[2023-12-07 08:35] LABS: ALANINE AMINOTRANSFERASE 16 U/L (14-59); ALBUMIN 2.8 g/dL (3.4-5.0); ALKALINE PHOSPHATASE 69 U/L (50-136); ASPARTATE AMINOTRANSFERASE < 5 U/L (15-37); BILIRUBIN,TOTAL 0.3 mg/dL (0.2-1.0); CALCIUM 9.5 mg/dL (8.5-10.1); CARBON DIOXIDE 31 mmol/L (21-32); CHLORIDE 105 mmol/L (98-107); CREATININE 1.2 mg/dL (0.6-1.3); GLUCOSE 90 mg/dL (74-106); MAGNESIUM 2.1 mg/dL (1.8-2.4); PHOSPHOROUS 4.3 mg/dL (2.5-4.9); POTASSIUM 4.4 mmol/L (3.5-5.1); SODIUM SERUM 141 mmol/L (136-145); TOTAL PROTEIN, SERUM 6.4 g/dL (6.4-8.2); UREA NITROGEN, BLOOD 39 mg/dL (7-18)
[2023-12-07 16:00] VITALS: BP 93/60; TEMP 98.3; O2SAT 97
[2023-12-07 22:00] VITALS: BP 133/66; TEMP 97.4; O2SAT 97
[2023-12-08 06:00] VITALS: BP 115/64; TEMP 97.4; O2SAT 95
[2023-12-08 09:02] VITALS: BP 126/45
== END 2023-12-08 16:30 | disposition home health service (06) | DRG 871 ==
PROVIDERS: ADMIT Physical Medicine & Rehabilitation Pain Medicine; ATTEND Physical Medicine & Rehabilitation Pain Medicine
PROC: 0H9NXZZ Drainage of Left Foot Skin, External Approach (ICD-10-PCS; principal; 2023-11-30)
DX: A41.9 Sepsis, unspecified organism (principal); G93.41 Metabolic encephalopathy; N17.0 Acute kidney failure with tubular necrosis; N39.0 Urinary tract infection, site not specified; D68.59 Other primary thrombophilia; E44.0 Moderate protein-calorie malnutrition; B96.20 Unspecified Escherichia coli [E. coli] as the cause of diseases classified elsewhere; R53.1 Weakness; Z86.16 Personal history of COVID-19; Z87.01 Personal history of pneumonia (recurrent); D64.9 Anemia, unspecified; L89.622 Pressure ulcer of left heel, stage 2; E78.5 Hyperlipidemia, unspecified; E86.1 Hypovolemia; E88.09 Other disorders of plasma-protein metabolism, not elsewhere classified; F03.90 Unspecified dementia, unspecified severity, without behavioral disturbance, psychotic disturbance, mood disturbance, and anxiety; I10 Essential (primary) hypertension; K21.9 Gastro-esophageal reflux disease without esophagitis; M19.90 Unspecified osteoarthritis, unspecified site; S30.0XXD Contusion of lower back and pelvis, subsequent encounter; X58.XXXD Exposure to other specified factors, subsequent encounter; G89.29 Other chronic pain; E66.9 Obesity, unspecified; R42 Dizziness and giddiness; Z88.5 Allergy status to narcotic agent
CPT/HCPCS: 36415; 71045; 83735; 84100; 85025; A4663; A6209; A6213; J0696; J1650

== ENCOUNTER 2024-02-15 13:35 | Emergency (ER) | payer MEDICARE, OTHER ==
[~2024-02-15] VITALS: Ht 157.5 cm; Wt 73.9 kg
[~2024-02-15 13:35] MED LIST changes: -LORA-259 PO
[2024-02-15 14:55] LABS: *BILIRUBIN,URIN NEGATIVE (NEGATIVE); *BLOOD, URINE 2+ (NEGATIVE); *CLARITY,URINE CLOUDY (CLEAR); *COLOR,URINE YELLOW (YELLOW); *KETONES,URINE NEGATIVE (NEGATIVE); *PROTEIN,URINE 2+ (NEGATIVE); *UROBILINOGEN,URINE 0.2 E.U./dl (NORMAL); LEUKOCYTE ESTERASE ,URINE 2+ (NEGATIVE); NITRITE, URINE NEGATIVE (NEGATIVE); PH,URINE 5.5 (5.0-8.0); UGLUCOSE NEGATIVE (NEGATIVE)
[2024-02-15 14:57] LABS: BASOPHILS % (AUTO) 0.7 % (0.0-2.0); EOSINOPHILS # (AUTO) 0.1 K/uL (0.0-0.7); EOSINOPHILS % (AUTO) 1.8 % (0.0-7.0); HEMATOCRIT 33.9 % (31.2-41.9); LYMPHOCYTES # (AUTO) 1.5 K/uL (0.8-4.8); LYMPHOCYTES % (AUTO) 20.5 % (20.5-51.5); MEAN CORPUSCULAR HGB CONC 33 g/dL (32.3-35.6); MEAN CORPUSCULAR VOLUME 86.1 fL (75.5-95.3); MONOCYTES # (AUTO) 0.7 K/uL (0.1-1.30); NEUTROPHILS # (AUTO) 4.9 K/uL (1.8-8.9); PLATELET COUNT (AUTO) 282 K/uL (179-408); RED BLOOD CELL COUNT(AUTO) 3.94 MIL/uL (3.63-4.92); RED CELL DISTRIBUTION WIDTH 14.8 % (12.3-17.7); WHITE BLOOD COUNT (AUTO) 7.3 K/uL (3.8-11.8)
[2024-02-15 15:01] LABS: DIFFERENTIAL COMMENT 1
[2024-02-15 15:05] LABS: CALCIUM 9.1 mg/dL (8.5-10.1); CARBON DIOXIDE 27 mmol/L (21-32); CHLORIDE 109 mmol/L (98-107); CREATININE 1.3 mg/dL (0.6-1.3); GLUCOSE 102 mg/dL (74-106); SODIUM SERUM 146 mmol/L (136-145); UREA NITROGEN, BLOOD 31 mg/dL (7-18)
[2024-02-15 15:18] LABS: BACTERIA,URINE FEW /HPF (NONE SEEN); SQUAMOUS EPITHELIAL CELL,UR FEW /HPF (NONE SEEN); WBC,URINE 80-100 /HPF (0-3)
[2024-02-15] MEDS ORDERED: CEPH500T PO (15:24)
[2024-02-15] MEDS ORDERED: CEphaleXIN 500 MG CAPSULE ONE (15:31)
[2024-02-15] MEDS: CEphaleXIN 500 MG CAPSULE PO ONE (15:32)
[2024-02-15 15:44] VITALS: BP 114/66; TEMP 98.5; O2SAT 97
== END 2024-02-15 15:45 | disposition home or self-care (01) ==
LOC: ER 13:35
DX: N39.0 Urinary tract infection, site not specified (principal); E78.5 Hyperlipidemia, unspecified; F03.92 Unspecified dementia, unspecified severity, with psychotic disturbance; I11.9 Hypertensive heart disease without heart failure; K21.9 Gastro-esophageal reflux disease without esophagitis; Z79.899 Other long term (current) drug therapy; Z88.7 Allergy status to serum and vaccine
CPT/HCPCS: 36415; 85025; A4606; A4663

== ENCOUNTER 2024-05-14 12:59 | Emergency (ER) | payer MEDICARE, OTHER ==
[~2024-05-14] VITALS: Ht 160 cm; Wt 95.3 kg
[~2024-05-14 12:59] MED LIST changes: +CEPH500T PO; +NITR100C6 PO
[2024-05-14 14:05] LABS: BASOPHILS # (AUTO) 0.1 K/UL (0.0-0.2); BASOPHILS % (AUTO) 0.7 % (0.0-2.0); EOSINOPHILS # (AUTO) 0.1 K/uL (0.0-0.7); EOSINOPHILS % (AUTO) 1.4 % (0.0-7.0); HEMATOCRIT 30.4 % (31.2-41.9); HEMOGLOBIN 10.1 g/dL (10.9-14.3); LYMPHOCYTES # (AUTO) 1.4 K/uL (0.8-4.8); LYMPHOCYTES % (AUTO) 20.7 % (20.5-51.5); MEAN CORPUSCULAR HEMOGLOBIN 28.6 uug (24.7-32.8); MEAN CORPUSCULAR HGB CONC 33 g/dL (32.3-35.6); MEAN CORPUSCULAR VOLUME 86.5 fL (75.5-95.3); MONOCYTES # (AUTO) 0.7 K/uL (0.1-1.30); MONOCYTES % (AUTO) 10.3 % (0.0-11.0); NEUTROPHILS # (AUTO) 4.6 K/uL (1.8-8.9); NEUTROPHILS % (AUTO) 66.9 % (38.5-71.5); PLATELET COUNT (AUTO) 231 K/uL (179-408); RED BLOOD CELL COUNT(AUTO) 3.52 MIL/uL (3.63-4.92); RED CELL DISTRIBUTION WIDTH 14.6 % (12.3-17.7); WHITE BLOOD COUNT (AUTO) 6.9 K/uL (3.8-11.8)
[2024-05-14 14:12] LABS: DIFFERENTIAL COMMENT 1
[2024-05-14 14:19] LABS: CALCIUM 8.5 mg/dL (8.5-10.1); CARBON DIOXIDE 28 mmol/L (21-32); CHLORIDE 107 mmol/L (98-107); CREATININE 1.5 mg/dL (0.6-1.3); GLUCOSE 183 mg/dL (74-106); POTASSIUM 4.4 mmol/L (3.5-5.1); SODIUM SERUM 144 mmol/L (136-145); UREA NITROGEN, BLOOD 28 mg/dL (7-18)
[2024-05-14 14:20] LABS: *BILIRUBIN,URIN NEGATIVE (NEGATIVE); *BLOOD, URINE TRACE (NEGATIVE); *CLARITY,URINE CLEAR (CLEAR); *COLOR,URINE YELLOW (YELLOW); *KETONES,URINE NEGATIVE (NEGATIVE); *PROTEIN,URINE TRACE (NEGATIVE); *UROBILINOGEN,URINE 0.2 E.U./dl (NORMAL); LEUKOCYTE ESTERASE ,URINE 1+ (NEGATIVE); NITRITE, URINE NEGATIVE (NEGATIVE); UGLUCOSE NEGATIVE (NEGATIVE)
[2024-05-14 14:21] LABS: BACTERIA,URINE FEW /HPF (NONE SEEN); SQUAMOUS EPITHELIAL CELL,UR FEW /HPF (NONE SEEN); WBC,URINE 20-50 /HPF (0-3)
[2024-05-14 14:25] LABS: ALANINE AMINOTRANSFERASE 11 U/L (14-59); ALBUMIN 2.9 g/dL (3.4-5.0); ALKALINE PHOSPHATASE 50 U/L (50-136); ASPARTATE AMINOTRANSFERASE 8 U/L (15-37); BILIRUBIN,TOTAL 0.3 mg/dL (0.2-1.0); TOTAL PROTEIN, SERUM 6.3 g/dL (6.4-8.2)
[2024-05-14 14:36] LABS: BILIRUBIN,DIRECT < 0.1 mg/dL (0.0-0.2)
[2024-05-14] MEDS ORDERED: CEFTRIAXONE /D5W 50ML IVPB **ER PYXIS IV ONE (14:54)
[2024-05-14] MEDS: CEFTRIAXONE 1 G in IV DEXTROSE 5% 50 ML IV ONE (14:57)
[2024-05-14] MEDS ORDERED: SULF1TAB48 PO (15:48)
[2024-05-14 16:03] VITALS: BP 107/58; TEMP 97.8; O2SAT 98
[2024-05-14] MEDS: IV NORMAL SALINE 500 ML BAG IV ONE (16:12)
== END 2024-05-14 15:50 | disposition home or self-care (01) ==
LOC: ER 12:59
DX: N39.0 Urinary tract infection, site not specified (principal); G30.9 Alzheimer's disease, unspecified; R94.31 Abnormal electrocardiogram [ECG] [EKG]; E78.5 Hyperlipidemia, unspecified; I11.9 Hypertensive heart disease without heart failure; K21.9 Gastro-esophageal reflux disease without esophagitis; Z79.899 Other long term (current) drug therapy; Z86.16 Personal history of COVID-19; Z87.440 Personal history of urinary (tract) infections; Z88.7 Allergy status to serum and vaccine
CPT/HCPCS: 99285; 96365; 71045; 80076; 80048; 81001; 85025; 85730; 87040; 36415; 93005; 83605; J0696; J7040; A4606; A4663; C1758

== ENCOUNTER 2024-06-18 10:40 | Inpatient (IN) | payer MEDICARE, OTHER ==
[~2024-06-18] VITALS: Ht 160 cm; Wt 72.6 kg
[~2024-06-18 10:40] MED LIST changes: +SULF1TAB48 PO
[2024-06-18 12:11] LABS: BASOPHILS % (AUTO) 0.5 % (0.0-2.0); EOSINOPHILS # (AUTO) 0.1 K/uL (0.0-0.7); EOSINOPHILS % (AUTO) 0.7 % (0.0-7.0); HEMATOCRIT 33.6 % (31.2-41.9); LYMPHOCYTES # (AUTO) 1.3 K/uL (0.8-4.8); LYMPHOCYTES % (AUTO) 17.3 % (20.5-51.5); MEAN CORPUSCULAR HEMOGLOBIN 28.9 uug (24.7-32.8); MEAN CORPUSCULAR HGB CONC 33 g/dL (32.3-35.6); MEAN CORPUSCULAR VOLUME 88.4 fL (75.5-95.3); MONOCYTES # (AUTO) 0.7 K/uL (0.1-1.30); MONOCYTES % (AUTO) 9.6 % (0.0-11.0); NEUTROPHILS # (AUTO) 5.5 K/uL (1.8-8.9); NEUTROPHILS % (AUTO) 71.9 % (38.5-71.5); PLATELET COUNT (AUTO) 245 K/uL (179-408); RED CELL DISTRIBUTION WIDTH 14.5 % (12.3-17.7); WHITE BLOOD COUNT (AUTO) 7.6 K/uL (3.8-11.8)
[2024-06-18 12:17] LABS: MAGNESIUM 2.5 mg/dL (1.8-2.4)
[2024-06-18 12:18] LABS: CALCIUM 9.1 mg/dL (8.5-10.1); CARBON DIOXIDE 28 mmol/L (21-32); CHLORIDE 107 mmol/L (98-107); CREATININE 1.7 mg/dL (0.6-1.3); GLUCOSE 104 mg/dL (74-106); POTASSIUM 4.7 mmol/L (3.5-5.1); SODIUM SERUM 141 mmol/L (136-145); UREA NITROGEN, BLOOD 38 mg/dL (7-18)
[2024-06-18 12:25] LABS: ALANINE AMINOTRANSFERASE 8 U/L (14-59); ALBUMIN 3.3 g/dL (3.4-5.0); ALKALINE PHOSPHATASE 45 U/L (50-136); ASPARTATE AMINOTRANSFERASE 8 U/L (15-37); BILIRUBIN,DIRECT 0.1 mg/dL (0.0-0.2); BILIRUBIN,TOTAL 0.3 mg/dL (0.2-1.0); TOTAL PROTEIN, SERUM 6.7 g/dL (6.4-8.2)
[2024-06-18 12:31] LABS: THYROID STIMULATING HORMONE 0.735 mIU/mL (0.358-3.740)
[2024-06-18 12:37] LABS: *BILIRUBIN,URIN NEGATIVE (NEGATIVE); *BLOOD, URINE 2+ (NEGATIVE); *CLARITY,URINE CLOUDY (CLEAR); *COLOR,URINE YELLOW (YELLOW); *KETONES,URINE NEGATIVE (NEGATIVE); *PROTEIN,URINE 1+ (NEGATIVE); *UROBILINOGEN,URINE 0.2 E.U./dl (NORMAL); LEUKOCYTE ESTERASE ,URINE 3+ (NEGATIVE); NITRITE, URINE POSITIVE (NEGATIVE); UGLUCOSE NEGATIVE (NEGATIVE)
[2024-06-18 12:45] LABS: BACTERIA,URINE MODERATE /HPF (NONE SEEN); RBC,URINE 20-50 /HPF (0-3); SQUAMOUS EPITHELIAL CELL,UR MODERATE /HPF (NONE SEEN); URINE AMORPHOUS URATE MODERATE /HPF; WBC,URINE 50-80 /HPF (0-3)
[2024-06-18] MEDS ORDERED: CEFTRIAXONE /D5W 50ML IVPB **ER PYXIS IV ONE (13:19)
[2024-06-18] MEDS: CEFTRIAXONE 1 G in IV DEXTROSE 5% 50 ML IV ONE (13:29)
[2024-06-18] MEDS ORDERED: ONDANSETRON 4 MG/2 ML VIAL IV PRN (16:30)
[2024-06-18] MEDS ORDERED: REMEDY ESSENTIAL ZINC PASTE 113 GM TP PRN (16:30)
[2024-06-18] MEDS: IV 1/2NS 1000 ML 1,000 ML IV PRN (16:42)
[2024-06-18 16:44] VITALS: BP 142/68; TEMP 97.8; O2SAT 98
[2024-06-18] MEDS ORDERED: GABAPENTIN 300 MG CAPSULE PO PRN (16:45)
[2024-06-18] MEDS ORDERED: DIVALPROEX SPRINKLE 125 MG CAP.SPRINK PO SCH (17:00)
[2024-06-18] MEDS ORDERED: MELA3TAB41 PO (17:18)
[2024-06-18] MEDS ORDERED: LORA-258 PO (17:20)
[2024-06-18] MEDS: DIVALPROEX SPRINKLE 125 MG CAP.SPRINK PO SCH (18:53)
[2024-06-18] MEDS: risperiDONE 0.5 MG TABLET PO SCH (18:53)
[2024-06-18] MEDS: BENZTROPINE MESYLATE 0.5 MG TABLET PO SCH (18:53)
[2024-06-18 19:00] VITALS: BP 179/87; TEMP 98.1; O2SAT 98
[2024-06-18] MEDS: DOCUSATE SODIUM 100 MG CAPSULE PO SCH (20:59)
[2024-06-18] MEDS ORDERED: risperiDONE 1 MG TABLET PO SCH (21:00)
[2024-06-18] MEDS: ENOXAPARIN SODIUM 40 MG/0.4 ML DISP.SYRIN SQ SCH (21:00)
[2024-06-18] MEDS: LOSARTAN POTASSIUM 50 MG TABLET PO PRN (22:16)
[2024-06-18] MEDS: ZOLPIDEM 5 MG TABLET PO PRN (22:16)
[2024-06-19 06:00] VITALS: BP 156/69; TEMP 98.9; O2SAT 95
[2024-06-19] MEDS: PANTOPRAZOLE SODIUM 40 MG TABLET.DR PO SCH (06:24)
[2024-06-19 07:16] LABS: BASOPHILS % (AUTO) 0.6 % (0.0-2.0); EOSINOPHILS # (AUTO) 0.1 K/uL (0.0-0.7); EOSINOPHILS % (AUTO) 1.9 % (0.0-7.0); HEMATOCRIT 30.5 % (31.2-41.9); HEMOGLOBIN 10.3 g/dL (10.9-14.3); LYMPHOCYTES # (AUTO) 1.3 K/uL (0.8-4.8); LYMPHOCYTES % (AUTO) 24.8 % (20.5-51.5); MEAN CORPUSCULAR HEMOGLOBIN 29.5 uug (24.7-32.8); MEAN CORPUSCULAR HGB CONC 34 g/dL (32.3-35.6); MEAN CORPUSCULAR VOLUME 87.7 fL (75.5-95.3); MONOCYTES # (AUTO) 0.5 K/uL (0.1-1.30); MONOCYTES % (AUTO) 10.8 % (0.0-11.0); NEUTROPHILS # (AUTO) 3.1 K/uL (1.8-8.9); NEUTROPHILS % (AUTO) 61.9 % (38.5-71.5); PLATELET COUNT (AUTO) 239 K/uL (179-408); RED BLOOD CELL COUNT(AUTO) 3.48 MIL/uL (3.63-4.92); RED CELL DISTRIBUTION WIDTH 14.4 % (12.3-17.7); WHITE BLOOD COUNT (AUTO) 5.1 K/uL (3.8-11.8)
[2024-06-19 07:27] LABS: DIFFERENTIAL COMMENT 1
[2024-06-19 07:34] LABS: CALCIUM 8.8 mg/dL (8.5-10.1); CARBON DIOXIDE 27 mmol/L (21-32); CHLORIDE 108 mmol/L (98-107); CHOLESTEROL 225 mg/dL (<200); CREATININE 1.3 mg/dL (0.6-1.3); GLUCOSE 98 mg/dL (74-106); HDL CHOLESTEROL 48 mg/dL (40-60); MAGNESIUM 2.2 mg/dL (1.8-2.4); PHOSPHOROUS 3.4 mg/dL (2.5-4.9); POTASSIUM 4.1 mmol/L (3.5-5.1); SODIUM SERUM 145 mmol/L (136-145); TRIGLYCERIDES 163 MG/DL (30-150); UREA NITROGEN, BLOOD 30 mg/dL (7-18)
[2024-06-19 08:04] VITALS: BP 168/76; TEMP 98.9
[2024-06-19] MEDS: ACETAMINOPHEN 325 MG TABLET PO PRN (08:09)
[2024-06-19 08:10] LABS: THYROID STIMULATING HORMONE 1.312 mIU/mL (0.358-3.740)
[2024-06-19] MEDS ORDERED: AMLODIPINE 5 MG TABLET PO SCH (09:00)
[2024-06-19] MEDS: MAGNESIUM HYDROXIDE 30 ML LIQUID UDC PO PRN (09:24)
[2024-06-19] MEDS ORDERED: MELATONIN 3 MG TABLET PO PRN (09:45)
[2024-06-19 11:17] VITALS: BP 145/68; TEMP 98.4; O2SAT 98
[2024-06-19] MEDS: LACTULOSE 20 G/30 ML LIQUID UDC PO ONE (12:54)
[2024-06-19] MEDS: CEFTRIAXONE 1 G in IV DEXTROSE 5% 50 ML IV SCH (12:55)
[2024-06-19] MEDS: MIRALAX 17 GM POWD.PACK PO SCH (13:00)
[2024-06-19 15:21] VITALS: BP 132/45; TEMP 98.6; O2SAT 100
[2024-06-19 19:47] VITALS: BP 160/65; TEMP 97.5; O2SAT 97
[2024-06-20 05:27] VITALS: BP 139/70; TEMP 97.6; O2SAT 98
[2024-06-20 06:54] LABS: BASOPHILS % (AUTO) 0.6 % (0.0-2.0); EOSINOPHILS # (AUTO) 0.1 K/uL (0.0-0.7); EOSINOPHILS % (AUTO) 1.7 % (0.0-7.0); HEMATOCRIT 27.8 % (31.2-41.9); HEMOGLOBIN 9.6 g/dL (10.9-14.3); LYMPHOCYTES # (AUTO) 1.3 K/uL (0.8-4.8); LYMPHOCYTES % (AUTO) 20.9 % (20.5-51.5); MEAN CORPUSCULAR HEMOGLOBIN 30.4 uug (24.7-32.8); MEAN CORPUSCULAR HGB CONC 35 g/dL (32.3-35.6); MEAN CORPUSCULAR VOLUME 88.2 fL (75.5-95.3); MONOCYTES # (AUTO) 0.7 K/uL (0.1-1.30); NEUTROPHILS % (AUTO) 64.8 % (38.5-71.5); PLATELET COUNT (AUTO) 197 K/uL (179-408); RED BLOOD CELL COUNT(AUTO) 3.15 MIL/uL (3.63-4.92); RED CELL DISTRIBUTION WIDTH 14.4 % (12.3-17.7); WHITE BLOOD COUNT (AUTO) 6.2 K/uL (3.8-11.8)
[2024-06-20 06:58] LABS: DIFFERENTIAL COMMENT 1
[2024-06-20 07:07] LABS: CALCIUM 8.8 mg/dL (8.5-10.1); CARBON DIOXIDE 25 mmol/L (21-32); CHLORIDE 109 mmol/L (98-107); CREATININE 1.3 mg/dL (0.6-1.3); GLUCOSE 98 mg/dL (74-106); SODIUM SERUM 143 mmol/L (136-145); UREA NITROGEN, BLOOD 24 mg/dL (7-18)
[2024-06-20] MEDS ORDERED: POLY17PO4 PO (11:27)
[2024-06-20] MEDS ORDERED: ENOX40DI SQ (11:27)
[2024-06-20] MEDS ORDERED: DIVA125C2 PO (11:27)
[2024-06-20] MEDS ORDERED: CEFT1FRO2 IV (11:27)
[2024-06-20] MEDS ORDERED: RISP0.5T5 PO (11:27)
[2024-06-20] MEDS ORDERED: DOCU-141 PO (11:27)
[2024-06-20 11:46] VITALS: BP 166/80
== END 2024-06-20 13:55 | DRG 689 ==
LOC: ER 10:40 → MEDSURG3 16:21
PROC: 05HD33Z Insertion of Infusion Device into Right Cephalic Vein, Percutaneous Approach (ICD-10-PCS; principal; 2024-06-19)
DX: N39.0 Urinary tract infection, site not specified (principal); G93.41 Metabolic encephalopathy; N17.0 Acute kidney failure with tubular necrosis; F02.84 Dementia in other diseases classified elsewhere, unspecified severity, with anxiety; Z91.51 Personal history of suicidal behavior; Z86.16 Personal history of COVID-19; Z87.440 Personal history of urinary (tract) infections; R32 Unspecified urinary incontinence; E78.5 Hyperlipidemia, unspecified; K59.00 Constipation, unspecified; K21.9 Gastro-esophageal reflux disease without esophagitis; G20.A1 Parkinson's disease without dyskinesia, without mention of fluctuations; I12.9 Hypertensive chronic kidney disease with stage 1 through stage 4 chronic kidney disease, or unspecified chronic kidney disease; N18.9 Chronic kidney disease, unspecified; R15.9 Full incontinence of feces; R26.2 Difficulty in walking, not elsewhere classified; R42 Dizziness and giddiness; R53.1 Weakness
CPT/HCPCS: 36415; 71045; 83605; 83735; 84100; 84443; 84484; 85025; 85730; 87040; 87077; 87086; A4606; A4663; C1758; G0378; J0696; J1650

== ENCOUNTER 2024-06-20 09:42 | Inpatient (IN) | payer MEDICARE, OTHER ==
[~2024-06-20] VITALS: Ht 160 cm; Wt 72.6 kg
[~2024-06-20 09:42] MED LIST changes: -AMLO-212 PO; -CEFT1FRO2 IV; -CEPH500T PO; -DEXL60CA3 PO; -ENOX40DI SQ; -GABA300C PO; +LORA-258 PO; +MELA3TAB41 PO; -NITR100C6 PO; -SULF1TAB48 PO
[2024-06-20 10:06] VITALS: BP 139/70; TEMP 97.6
[2024-06-20 10:33] VITALS: BP 139/70; TEMP 97.6
[2024-06-20] MEDS ORDERED: RISP0.5T5 PO (11:27)
[2024-06-20] MEDS ORDERED: POLY17PO4 PO (11:27)
[2024-06-20] MEDS ORDERED: ENOX40DI SQ (11:27)
[2024-06-20] MEDS ORDERED: CEFT1FRO2 IV (11:27)
[2024-06-20] MEDS ORDERED: DOCU-141 PO (11:27)
[2024-06-20] MEDS ORDERED: DIVA125C2 PO (11:27)
[2024-06-20 14:00] VITALS: BP 119/57; TEMP 97.7; O2SAT 96
[2024-06-20 17:00] VITALS: BP 131/60; TEMP 98; O2SAT 97
[2024-06-20] MEDS ORDERED: ACETAMINOPHEN 325 MG TABLET-SA PATIENTS-PAIN ONLY PO PRN (17:00)
[2024-06-20] MEDS ORDERED: risperiDONE 1 MG TABLET PO SCH (17:00)
[2024-06-20 17:45] VITALS: BP 133/60; TEMP 98.5; O2SAT 97
[2024-06-20] MEDS ORDERED: ACETAMINOPHEN 325 MG TABLET PO PRN (17:45)
[2024-06-20] MEDS: DOCUSATE SODIUM 100 MG CAPSULE PO SCH (20:34)
[2024-06-20] MEDS: LORAZEPAM 0.5 MG TABLET PO PRN (20:34)
[2024-06-20] MEDS: ENOXAPARIN SODIUM 40 MG/0.4 ML DISP.SYRIN SQ SCH (20:34)
[2024-06-20] MEDS: MELOXICAM 7.5 MG TABLET PO SCH (20:35)
[2024-06-20 21:00] VITALS: BP 165/70; TEMP 98; O2SAT 95
[2024-06-20] MEDS ORDERED: Medication Not On Formulary EA (Meloxicam 15 MG) PO SCH (21:00)
[2024-06-20] MEDS ORDERED: Medication Not On Formulary EA (Docusate Sodium 200 MG) PO SCH (21:00)
[2024-06-20] MEDS: LOSARTAN POTASSIUM 50 MG TABLET PO PRN (21:18)
[2024-06-21 05:30] VITALS: BP 155/73; TEMP 97.8; O2SAT 97
[2024-06-21] MEDS: PANTOPRAZOLE SODIUM 40 MG TABLET.DR PO SCH (06:28)
[2024-06-21 08:21] LABS: BASOPHILS % (AUTO) 0.7 % (0.0-2.0); EOSINOPHILS # (AUTO) 0.1 K/uL (0.0-0.7); EOSINOPHILS % (AUTO) 1.8 % (0.0-7.0); HEMATOCRIT 31.2 % (31.2-41.9); HEMOGLOBIN 10.6 g/dL (10.9-14.3); LYMPHOCYTES # (AUTO) 1.3 K/uL (0.8-4.8); LYMPHOCYTES % (AUTO) 22.5 % (20.5-51.5); MEAN CORPUSCULAR HEMOGLOBIN 29.6 uug (24.7-32.8); MEAN CORPUSCULAR HGB CONC 34 g/dL (32.3-35.6); MEAN CORPUSCULAR VOLUME 87.4 fL (75.5-95.3); MONOCYTES # (AUTO) 0.7 K/uL (0.1-1.30); MONOCYTES % (AUTO) 12.3 % (0.0-11.0); NEUTROPHILS # (AUTO) 3.7 K/uL (1.8-8.9); NEUTROPHILS % (AUTO) 62.7 % (38.5-71.5); PLATELET COUNT (AUTO) 228 K/uL (179-408); RED BLOOD CELL COUNT(AUTO) 3.57 MIL/uL (3.63-4.92); RED CELL DISTRIBUTION WIDTH 14.6 % (12.3-17.7); WHITE BLOOD COUNT (AUTO) 5.8 K/uL (3.8-11.8)
[2024-06-21 08:28] LABS: DIFFERENTIAL COMMENT 1
[2024-06-21 08:32] LABS: CALCIUM 8.7 mg/dL (8.5-10.1); CARBON DIOXIDE 27 mmol/L (21-32); CHLORIDE 110 mmol/L (98-107); CREATININE 1.3 mg/dL (0.6-1.3); GLUCOSE 94 mg/dL (74-106); POTASSIUM 4.1 mmol/L (3.5-5.1); SODIUM SERUM 143 mmol/L (136-145); UREA NITROGEN, BLOOD 19 mg/dL (7-18)
[2024-06-21] MEDS: MIRALAX 17 GM POWD.PACK PO SCH (08:53)
[2024-06-21] MEDS: DIVALPROEX SPRINKLE 125 MG CAP.SPRINK PO SCH (08:53)
[2024-06-21] MEDS: risperiDONE 0.5 MG TABLET PO SCH (08:53)
[2024-06-21] MEDS ORDERED: Mirabegron (Myrbetriq) 50 MG) PO SCH (09:00)
[2024-06-21] MEDS: CEFTRIAXONE 1 G in IV DEXTROSE 5% 50 ML IV SCH (12:56)
[2024-06-21] MEDS: BENZTROPINE MESYLATE 0.5 MG TABLET PO SCH (17:57)
[2024-06-21 18:37] VITALS: BP 126/52; TEMP 97.8; O2SAT 96
[2024-06-21 19:43] VITALS: BP 150/69; TEMP 99.1; O2SAT 95
[2024-06-22 05:39] VITALS: BP 163/68; TEMP 97.9; O2SAT 97
[2024-06-22 09:00] VITALS: BP 135/54; TEMP 98.1; O2SAT 97
[2024-06-22] MEDS: MEROPENEM 500 MG in IV NORMAL SALINE 50 ML IV SCH (10:21)
[2024-06-22 16:15] VITALS: BP 122/47; TEMP 97.6; O2SAT 97
[2024-06-22 19:44] VITALS: BP 116/50; TEMP 98; O2SAT 95
[2024-06-23 05:44] VITALS: BP 142/58; TEMP 97.5; O2SAT 99
[2024-06-23 08:00] VITALS: BP 157/73; TEMP 98.1; O2SAT 96
[2024-06-23 08:33] LABS: BASOPHILS # (AUTO) 0.1 K/UL (0.0-0.2); BASOPHILS % (AUTO) 1.3 % (0.0-2.0); EOSINOPHILS # (AUTO) 0.1 K/uL (0.0-0.7); EOSINOPHILS % (AUTO) 2.6 % (0.0-7.0); HEMATOCRIT 30.2 % (31.2-41.9); HEMOGLOBIN 10.1 g/dL (10.9-14.3); LYMPHOCYTES # (AUTO) 1.6 K/uL (0.8-4.8); LYMPHOCYTES % (AUTO) 30.2 % (20.5-51.5); MEAN CORPUSCULAR HEMOGLOBIN 29.3 uug (24.7-32.8); MEAN CORPUSCULAR HGB CONC 33 g/dL (32.3-35.6); MEAN CORPUSCULAR VOLUME 87.8 fL (75.5-95.3); MONOCYTES # (AUTO) 0.6 K/uL (0.1-1.30); MONOCYTES % (AUTO) 11.1 % (0.0-11.0); NEUTROPHILS # (AUTO) 2.9 K/uL (1.8-8.9); NEUTROPHILS % (AUTO) 54.8 % (38.5-71.5); PLATELET COUNT (AUTO) 226 K/uL (179-408); RED BLOOD CELL COUNT(AUTO) 3.44 MIL/uL (3.63-4.92); RED CELL DISTRIBUTION WIDTH 14.8 % (12.3-17.7); WHITE BLOOD COUNT (AUTO) 5.2 K/uL (3.8-11.8)
[2024-06-23 08:42] LABS: DIFFERENTIAL COMMENT 1
[2024-06-23 08:46] LABS: CALCIUM 9.1 mg/dL (8.5-10.1); CARBON DIOXIDE 27 mmol/L (21-32); CHLORIDE 109 mmol/L (98-107); CREATININE 1.4 mg/dL (0.6-1.3); GLUCOSE 91 mg/dL (74-106); POTASSIUM 4.4 mmol/L (3.5-5.1); SODIUM SERUM 144 mmol/L (136-145); UREA NITROGEN, BLOOD 28 mg/dL (7-18)
[2024-06-23] MEDS: ENSURE ENLIVE (VAN) 240 ML LIQUID PO SCH (16:34)
[2024-06-23] MEDS: TRAMADOL HCL 50 MG TABLET PO SCH (16:34)
[2024-06-23 17:00] VITALS: BP 139/59; TEMP 98.9; O2SAT 97
[2024-06-23 20:51] VITALS: BP 104/46; TEMP 98; O2SAT 96
[2024-06-24] MEDS: MELATONIN 3 MG TABLET PO PRN (02:27)
[2024-06-24 07:04] VITALS: BP 107/44; TEMP 98; O2SAT 96
[2024-06-24 08:00] VITALS: TEMP 98
[2024-06-24 16:00] VITALS: TEMP 97.2
[2024-06-24 20:18] VITALS: BP 131/53; TEMP 97.9; O2SAT 95
[2024-06-25 05:20] VITALS: BP 144/66; TEMP 98.1; O2SAT 97
[2024-06-25 07:51] VITALS: BP 128/71; TEMP 97.7; O2SAT 96
[2024-06-25 16:01] VITALS: BP 129/63; TEMP 98.3; O2SAT 99
[2024-06-25 21:59] VITALS: BP 132/51; TEMP 99.4; O2SAT 97
[2024-06-26 06:14] VITALS: BP 139/53; TEMP 98.4; O2SAT 97
[2024-06-26 08:00] VITALS: TEMP 97.9
[2024-06-26 16:37] VITALS: TEMP 98.2
[2024-06-26 20:30] VITALS: BP 147/67; TEMP 98.3; O2SAT 95
[2024-06-27 07:18] VITALS: BP 135/33; TEMP 98.3; O2SAT 96
[2024-06-27 08:00] VITALS: BP 135/65; TEMP 97.6; O2SAT 96
[2024-06-27 15:25] LABS: THYROID STIMULATING HORMONE 0.847 mIU/mL (0.358-3.740)
== END 2024-06-27 15:20 | disposition home health service (06) | DRG 56 ==
PROVIDERS: ADMIT Physical Medicine & Rehabilitation Pain Medicine; ATTEND Physical Medicine & Rehabilitation Pain Medicine
DX: G20.A1 Parkinson's disease without dyskinesia, without mention of fluctuations (principal); G93.41 Metabolic encephalopathy; N17.0 Acute kidney failure with tubular necrosis; F02.84 Dementia in other diseases classified elsewhere, unspecified severity, with anxiety; N39.0 Urinary tract infection, site not specified; R53.1 Weakness; E78.5 Hyperlipidemia, unspecified; B96.89 Other specified bacterial agents as the cause of diseases classified elsewhere; I12.9 Hypertensive chronic kidney disease with stage 1 through stage 4 chronic kidney disease, or unspecified chronic kidney disease; N18.9 Chronic kidney disease, unspecified; K21.9 Gastro-esophageal reflux disease without esophagitis; Z87.440 Personal history of urinary (tract) infections; R42 Dizziness and giddiness; Z88.5 Allergy status to narcotic agent; B96.20 Unspecified Escherichia coli [E. coli] as the cause of diseases classified elsewhere; R32 Unspecified urinary incontinence; R15.9 Full incontinence of feces; R10.30 Lower abdominal pain, unspecified; F41.9 Anxiety disorder, unspecified
CPT/HCPCS: 36415; 70450; 73560; 83921; 84443; 85025; 97535-GO-CO; A4663; A6209; J0696; J1650; J2185; J7040

== ENCOUNTER 2024-08-14 11:23 | Emergency (ER) | payer MEDICARE, OTHER ==
[~2024-08-14] VITALS: Ht 160 cm; Wt 72.6 kg
[~2024-08-14 11:23] MED LIST changes: +CEFT1FRO2 IV; +ENOX40DI SQ; -MIRA50TA PO; +POLY17PO4 PO
[2024-08-14] MEDS ORDERED: NAPROXEN 500 MG TABLET ONE (12:52)
[2024-08-14] MEDS ORDERED: ACETAMINOPHEN 500 MG TABLET ONE (12:52)
[2024-08-14] MEDS: ACETAMINOPHEN 500 MG TABLET PO ONE (12:56)
[2024-08-14] MEDS: NAPROXEN 500 MG TABLET PO ONE (12:56)
[2024-08-14 14:30] VITALS: BP 110/74; O2SAT 98
== END 2024-08-14 13:59 | disposition home or self-care (01) ==
LOC: ER 11:23
DX: M25.561 Pain in right knee (principal); M25.551 Pain in right hip; M25.552 Pain in left hip; E78.5 Hyperlipidemia, unspecified; F03.94 Unspecified dementia, unspecified severity, with anxiety; I10 Essential (primary) hypertension; K21.9 Gastro-esophageal reflux disease without esophagitis; Z79.899 Other long term (current) drug therapy; Z87.440 Personal history of urinary (tract) infections; Z88.7 Allergy status to serum and vaccine; Z96.651 Presence of right artificial knee joint; Z86.16 Personal history of COVID-19; Z87.39 Personal history of other diseases of the musculoskeletal system and connective tissue
CPT/HCPCS: 73502; A4606; A4663; A9150

== ENCOUNTER 2024-08-31 15:42 | Inpatient (IN) | payer MEDICARE, OTHER ==
[~2024-08-31] VITALS: Ht 162.6 cm; Wt 74.9 kg
[2024-08-31 17:18] LABS: BASOPHILS % (AUTO) 0.5 % (0.0-2.0); EOSINOPHILS # (AUTO) 0.1 K/uL (0.0-0.7); EOSINOPHILS % (AUTO) 0.7 % (0.0-7.0); HEMATOCRIT 34.1 % (31.2-41.9); HEMOGLOBIN 10.9 g/dL (10.9-14.3); LYMPHOCYTES # (AUTO) 1.5 K/uL (0.8-4.8); LYMPHOCYTES % (AUTO) 15.6 % (20.5-51.5); MEAN CORPUSCULAR HEMOGLOBIN 27.9 uug (24.7-32.8); MEAN CORPUSCULAR HGB CONC 32 g/dL (32.3-35.6); MEAN CORPUSCULAR VOLUME 87.5 fL (75.5-95.3); MONOCYTES # (AUTO) 0.9 K/uL (0.1-1.30); MONOCYTES % (AUTO) 9.2 % (0.0-11.0); PLATELET COUNT (AUTO) 345 K/uL (179-408); RED CELL DISTRIBUTION WIDTH 14.6 % (12.3-17.7); WHITE BLOOD COUNT (AUTO) 9.5 K/uL (3.8-11.8)
[2024-08-31 17:22] LABS: DIFFERENTIAL COMMENT 1
[2024-08-31 17:24] LABS: CALCIUM 9.2 mg/dL (8.5-10.1); CARBON DIOXIDE 28 mmol/L (21-32); CHLORIDE 105 mmol/L (98-107); CREATININE 1.5 mg/dL (0.6-1.3); GLUCOSE 116 mg/dL (74-106); POTASSIUM 4.4 mmol/L (3.5-5.1); SODIUM SERUM 139 mmol/L (136-145); UREA NITROGEN, BLOOD 28 mg/dL (7-18)
[2024-08-31] MEDS ORDERED: CEFTRIAXONE /D5W 50ML IVPB **ER PYXIS IV ONE (17:25)
[2024-08-31] MEDS ORDERED: VANCOMYCIN IV 200 ML ONE (17:25)
[2024-08-31] MEDS: CEFTRIAXONE 1 G in IV DEXTROSE 5% 50 ML IV ONE (17:26)
[2024-08-31] MEDS: VANCOMYCIN IV 1,000 MG in IV DEXTROSE 5% 250 ML IV ONE (17:26)
[2024-08-31] MEDS: IV NORMAL SALINE 1000 ML BAG IV ONE (17:26)
[2024-08-31 17:37] LABS: ALANINE AMINOTRANSFERASE 17 U/L (14-59); ALBUMIN 2.9 g/dL (3.4-5.0); ALKALINE PHOSPHATASE 64 U/L (50-136); ASPARTATE AMINOTRANSFERASE < 5 U/L (15-37); BILIRUBIN,DIRECT 0.1 mg/dL (0.0-0.2); BILIRUBIN,TOTAL 0.2 mg/dL (0.2-1.0); NT-PRO BNP 1079 pg/mL (0-125); TOTAL PROTEIN, SERUM 7.4 g/dL (6.4-8.2)
[2024-08-31 18:38] LABS: *BILIRUBIN,URIN NEGATIVE (NEGATIVE); *BLOOD, URINE 1+ (NEGATIVE); *COLOR,URINE YELLOW (YELLOW); *KETONES,URINE NEGATIVE (NEGATIVE); *PROTEIN,URINE 1+ (NEGATIVE); *UROBILINOGEN,URINE 0.2 E.U./dl (NORMAL); LEUKOCYTE ESTERASE ,URINE 1+ (NEGATIVE); NITRITE, URINE POSITIVE (NEGATIVE); UGLUCOSE NEGATIVE (NEGATIVE)
[2024-08-31 18:49] LABS: *CLARITY,URINE SLIGHTLY CLOUDY (CLEAR)
[2024-08-31 18:58] LABS: BACTERIA,URINE MODERATE /HPF (NONE SEEN); SQUAMOUS EPITHELIAL CELL,UR FEW /HPF (NONE SEEN); WBC,URINE 80-100 /HPF (0-3)
[2024-08-31] MEDS ORDERED: LOSARTAN POTASSIUM 50 MG TABLET PO PRN (22:00)
[2024-08-31] MEDS ORDERED: MEROPENEM 500 MG in IV NORMAL SALINE 50 ML IV SCH (22:00)
[2024-08-31] MEDS ORDERED: ONDANSETRON 4 MG/2 ML VIAL IV PRN (22:00)
[2024-08-31] MEDS ORDERED: SIMETHICONE 80 MG TAB.CHEW PO PRN (22:00)
[2024-08-31] MEDS ORDERED: MAGNESIUM HYDROXIDE 30 ML LIQUID UDC PO PRN (22:00)
[2024-08-31 22:25] VITALS: BP 135/47; TEMP 100.4; O2SAT 97
[2024-08-31] MEDS ORDERED: MEROPENEM 500MG/NS 50ML PB ***ER PYXIS ONLY IV ONE (23:05)
[2024-08-31] MEDS: MEROPENEM 500 MG in IV NORMAL SALINE 50 ML IV ONE (23:54)
[2024-08-31] MEDS: ENOXAPARIN SODIUM 40 MG/0.4 ML DISP.SYRIN SQ SCH (23:55)
[2024-09-01 00:34] VITALS: BP 130/49; TEMP 99.1; O2SAT 98
[2024-09-01 04:48] VITALS: BP 138/67; TEMP 99.4; O2SAT 98
[2024-09-01] MEDS: PANTOPRAZOLE SODIUM 40 MG TABLET.DR PO SCH (06:28)
[2024-09-01 07:08] LABS: BASOPHILS # (AUTO) 0.1 K/UL (0.0-0.2); EOSINOPHILS # (AUTO) 0.1 K/uL (0.0-0.7); EOSINOPHILS % (AUTO) 2.1 % (0.0-7.0); HEMATOCRIT 27.7 % (31.2-41.9); HEMOGLOBIN 9.2 g/dL (10.9-14.3); LYMPHOCYTES # (AUTO) 1.6 K/uL (0.8-4.8); MEAN CORPUSCULAR HEMOGLOBIN 28.8 uug (24.7-32.8); MEAN CORPUSCULAR HGB CONC 33 g/dL (32.3-35.6); MEAN CORPUSCULAR VOLUME 86.3 fL (75.5-95.3); MONOCYTES # (AUTO) 0.6 K/uL (0.1-1.30); MONOCYTES % (AUTO) 9.3 % (0.0-11.0); NEUTROPHILS # (AUTO) 3.7 K/uL (1.8-8.9); NEUTROPHILS % (AUTO) 61.6 % (38.5-71.5); PLATELET COUNT (AUTO) 256 K/uL (179-408); RED BLOOD CELL COUNT(AUTO) 3.21 MIL/uL (3.63-4.92); RED CELL DISTRIBUTION WIDTH 14.3 % (12.3-17.7); WHITE BLOOD COUNT (AUTO) 6.1 K/uL (3.8-11.8)
[2024-09-01 07:31] LABS: DIFFERENTIAL COMMENT 1
[2024-09-01 07:39] LABS: CALCIUM 7.9 mg/dL (8.5-10.1); CARBON DIOXIDE 23 mmol/L (21-32); CHLORIDE 108 mmol/L (98-107); CHOLESTEROL 171 mg/dL (<200); CREATININE 1.2 mg/dL (0.6-1.3); GLUCOSE 98 mg/dL (74-106); HDL CHOLESTEROL 39 mg/dL (40-60); MAGNESIUM 2.1 mg/dL (1.8-2.4); PHOSPHOROUS 3.2 mg/dL (2.5-4.9); SODIUM SERUM 140 mmol/L (136-145); TRIGLYCERIDES 130 MG/DL (30-150); UREA NITROGEN, BLOOD 21 mg/dL (7-18)
[2024-09-01 07:41] LABS: POTASSIUM 4.4 mmol/L (3.5-5.1)
[2024-09-01] MEDS: MIRALAX 17 GM POWD.PACK PO SCH (08:36)
[2024-09-01] MEDS: MELOXICAM 7.5 MG TABLET PO SCH (08:36)
[2024-09-01] MEDS: risperiDONE 0.5 MG TABLET PO ONE (08:36)
[2024-09-01] MEDS: DIVALPROEX SPRINKLE 125 MG CAP.SPRINK PO SCH (08:36)
[2024-09-01] MEDS ORDERED: risperiDONE 1 MG TABLET PO SCH (09:00)
[2024-09-01] MEDS: MEROPENEM 500 MG in IV NORMAL SALINE 50 ML IV SCH (11:45)
[2024-09-01 12:00] VITALS: BP 129/52; TEMP 98.2; O2SAT 98
[2024-09-01] MEDS: IV NS 1000 ML 1,000 ML IV PRN (15:46)
[2024-09-01 16:00] VITALS: BP 103/55; TEMP 97.6; O2SAT 98
[2024-09-01] MEDS: REMEDY ESSENTIAL ZINC PASTE 113 GM TP PRN (16:21)
[2024-09-01] MEDS: ACETAMINOPHEN 325 MG TABLET PO PRN (16:21)
[2024-09-01] MEDS: BENZTROPINE MESYLATE 0.5 MG TABLET PO SCH (16:21)
[2024-09-01] MEDS: risperiDONE 0.5 MG TABLET PO SCH (16:21)
[2024-09-01 19:00] VITALS: BP 137/64; TEMP 98.4; O2SAT 97
[2024-09-01] MEDS: MELATONIN 3 MG TABLET PO PRN (21:09)
[2024-09-01] MEDS: LORAZEPAM 0.5 MG TABLET PO PRN (22:44)
[2024-09-02] MEDS: LOSARTAN POTASSIUM 50 MG TABLET PO PRN (06:14)
[2024-09-02 07:07] LABS: BASOPHILS # (AUTO) 0.1 K/UL (0.0-0.2); BASOPHILS % (AUTO) 1.2 % (0.0-2.0); EOSINOPHILS # (AUTO) 0.3 K/uL (0.0-0.7); EOSINOPHILS % (AUTO) 5.4 % (0.0-7.0); HEMATOCRIT 28.8 % (31.2-41.9); HEMOGLOBIN 9.5 g/dL (10.9-14.3); LYMPHOCYTES # (AUTO) 1.6 K/uL (0.8-4.8); LYMPHOCYTES % (AUTO) 30.4 % (20.5-51.5); MEAN CORPUSCULAR HGB CONC 33 g/dL (32.3-35.6); MEAN CORPUSCULAR VOLUME 87.5 fL (75.5-95.3); MONOCYTES # (AUTO) 0.6 K/uL (0.1-1.30); MONOCYTES % (AUTO) 11.7 % (0.0-11.0); NEUTROPHILS # (AUTO) 2.6 K/uL (1.8-8.9); NEUTROPHILS % (AUTO) 51.3 % (38.5-71.5); PLATELET COUNT (AUTO) 267 K/uL (179-408); RED BLOOD CELL COUNT(AUTO) 3.29 MIL/uL (3.63-4.92); RED CELL DISTRIBUTION WIDTH 14.5 % (12.3-17.7); WHITE BLOOD COUNT (AUTO) 5.2 K/uL (3.8-11.8)
[2024-09-02 07:13] LABS: DIFFERENTIAL COMMENT 1
[2024-09-02 07:18] LABS: CALCIUM 8.2 mg/dL (8.5-10.1); CARBON DIOXIDE 23 mmol/L (21-32); CHLORIDE 111 mmol/L (98-107); CREATININE 1.2 mg/dL (0.6-1.3); GLUCOSE 88 mg/dL (74-106); MAGNESIUM 2.2 mg/dL (1.8-2.4); PHOSPHOROUS 3.4 mg/dL (2.5-4.9); POTASSIUM 4.2 mmol/L (3.5-5.1); SODIUM SERUM 144 mmol/L (136-145); UREA NITROGEN, BLOOD 21 mg/dL (7-18)
[2024-09-02] MEDS: VANCOMYCIN IV 1,000 MG in IV DEXTROSE 5% 250 ML IV SCH (09:11)
[2024-09-02 11:38] VITALS: BP 105/65; TEMP 97.9; O2SAT 98
[2024-09-02 15:44] VITALS: BP 170/9; TEMP 97.9; O2SAT 97
[2024-09-02 19:30] VITALS: BP 153/79; TEMP 98.4; O2SAT 98
[2024-09-02 20:10] VITALS: BP 132/71
[2024-09-03 05:00] VITALS: BP 133/73; TEMP 97.8; O2SAT 95
[2024-09-03 06:45] LABS: BASOPHILS # (AUTO) 0.1 K/UL (0.0-0.2); EOSINOPHILS # (AUTO) 0.2 K/uL (0.0-0.7); EOSINOPHILS % (AUTO) 4.1 % (0.0-7.0); HEMATOCRIT 28.9 % (31.2-41.9); HEMOGLOBIN 9.6 g/dL (10.9-14.3); LYMPHOCYTES # (AUTO) 1.1 K/uL (0.8-4.8); LYMPHOCYTES % (AUTO) 19.5 % (20.5-51.5); MEAN CORPUSCULAR HEMOGLOBIN 28.7 uug (24.7-32.8); MEAN CORPUSCULAR HGB CONC 33 g/dL (32.3-35.6); MEAN CORPUSCULAR VOLUME 86.6 fL (75.5-95.3); MONOCYTES # (AUTO) 0.5 K/uL (0.1-1.30); MONOCYTES % (AUTO) 9.1 % (0.0-11.0); NEUTROPHILS # (AUTO) 3.6 K/uL (1.8-8.9); NEUTROPHILS % (AUTO) 66.3 % (38.5-71.5); PLATELET COUNT (AUTO) 317 K/uL (179-408); RED BLOOD CELL COUNT(AUTO) 3.34 MIL/uL (3.63-4.92); RED CELL DISTRIBUTION WIDTH 14.1 % (12.3-17.7); WHITE BLOOD COUNT (AUTO) 5.5 K/uL (3.8-11.8)
[2024-09-03 06:52] LABS: DIFFERENTIAL COMMENT 1
[2024-09-03 06:54] LABS: CALCIUM 8.7 mg/dL (8.5-10.1); CARBON DIOXIDE 25 mmol/L (21-32); CHLORIDE 114 mmol/L (98-107); CREATININE 1.4 mg/dL (0.6-1.3); GLUCOSE 91 mg/dL (74-106); MAGNESIUM 2.2 mg/dL (1.8-2.4); PHOSPHOROUS 3.2 mg/dL (2.5-4.9); POTASSIUM 4.3 mmol/L (3.5-5.1); SODIUM SERUM 148 mmol/L (136-145); UREA NITROGEN, BLOOD 20 mg/dL (7-18)
[2024-09-03 08:00] VITALS: BP 149/72; TEMP 98; O2SAT 97
[2024-09-03] MEDS: ARGININE/GLUTAMINE/CALCIUM BMB 1 EACH POWD.PACK PO SCH (09:15)
[2024-09-03 11:00] VITALS: BP 125/47; TEMP 98.2; O2SAT 98
[2024-09-03] MEDS: IV D5W 1000ML 1,000 ML IV SCH (11:33)
[2024-09-03 16:15] VITALS: BP 121/47; TEMP 97.7; O2SAT 98
[2024-09-03] MEDS ORDERED: IV D5W 1000ML 1,000 ML IV ONE (16:15)
[2024-09-03 19:20] VITALS: BP 124/40; TEMP 99; O2SAT 96
[2024-09-04 06:07] VITALS: BP 137/68; TEMP 97.8; O2SAT 95
[2024-09-04 07:01] LABS: CALCIUM 8.6 mg/dL (8.5-10.1); CARBON DIOXIDE 24 mmol/L (21-32); CHLORIDE 112 mmol/L (98-107); CREATININE 1.2 mg/dL (0.6-1.3); GLUCOSE 87 mg/dL (74-106); MAGNESIUM 2.2 mg/dL (1.8-2.4); PHOSPHOROUS 3.6 mg/dL (2.5-4.9); POTASSIUM 4.3 mmol/L (3.5-5.1); SODIUM SERUM 146 mmol/L (136-145); UREA NITROGEN, BLOOD 27 mg/dL (7-18)
[2024-09-04 07:03] LABS: BASOPHILS # (AUTO) 0.1 K/UL (0.0-0.2); BASOPHILS % (AUTO) 1.3 % (0.0-2.0); DIFFERENTIAL COMMENT 1; EOSINOPHILS # (AUTO) 0.3 K/uL (0.0-0.7); EOSINOPHILS % (AUTO) 6.2 % (0.0-7.0); HEMOGLOBIN 9.4 g/dL (10.9-14.3); LYMPHOCYTES # (AUTO) 1.6 K/uL (0.8-4.8); LYMPHOCYTES % (AUTO) 28.4 % (20.5-51.5); MEAN CORPUSCULAR HEMOGLOBIN 28.9 uug (24.7-32.8); MEAN CORPUSCULAR HGB CONC 34 g/dL (32.3-35.6); MEAN CORPUSCULAR VOLUME 86.2 fL (75.5-95.3); MONOCYTES # (AUTO) 0.6 K/uL (0.1-1.30); MONOCYTES % (AUTO) 10.6 % (0.0-11.0); NEUTROPHILS # (AUTO) 2.9 K/uL (1.8-8.9); NEUTROPHILS % (AUTO) 53.5 % (38.5-71.5); PLATELET COUNT (AUTO) 327 K/uL (179-408); RED BLOOD CELL COUNT(AUTO) 3.24 MIL/uL (3.63-4.92); RED CELL DISTRIBUTION WIDTH 14.2 % (12.3-17.7); WHITE BLOOD COUNT (AUTO) 5.5 K/uL (3.8-11.8)
[2024-09-04 11:23] VITALS: BP 127/57; TEMP 97.8; O2SAT 97
[2024-09-04] MEDS ORDERED: NITR50CA4 PO (11:33)
[2024-09-04] MEDS ORDERED: gemtesa PO (11:33)
== END 2024-09-04 15:43 | disposition home health service (06) | DRG 871 ==
LOC: ER 15:46 → TELE3 21:26 → MEDSURG3 09-01 10:48
PROVIDERS: ADMIT Nurse Practitioner Acute Care; ATTEND Nurse Practitioner Acute Care
PROC: 05HF33Z Insertion of Infusion Device into Left Cephalic Vein, Percutaneous Approach (ICD-10-PCS; principal; 2024-08-31)
DX: A41.51 Sepsis due to Escherichia coli [E. coli] (principal); G92.8 Other toxic encephalopathy; I50.33 Acute on chronic diastolic (congestive) heart failure; L89.613 Pressure ulcer of right heel, stage 3; N39.0 Urinary tract infection, site not specified; F02.84 Dementia in other diseases classified elsewhere, unspecified severity, with anxiety; R78.81 Bacteremia; Z16.12 Extended spectrum beta lactamase (ESBL) resistance; Z16.24 Resistance to multiple antibiotics; E87.0 Hyperosmolality and hypernatremia; N17.9 Acute kidney failure, unspecified; G20.A1 Parkinson's disease without dyskinesia, without mention of fluctuations; B95.8 Unspecified staphylococcus as the cause of diseases classified elsewhere; B96.20 Unspecified Escherichia coli [E. coli] as the cause of diseases classified elsewhere; Z86.16 Personal history of COVID-19; N32.81 Overactive bladder; Z96.653 Presence of artificial knee joint, bilateral; M15.9 Polyosteoarthritis, unspecified; Z96.643 Presence of artificial hip joint, bilateral; Z87.440 Personal history of urinary (tract) infections; K21.9 Gastro-esophageal reflux disease without esophagitis; E78.5 Hyperlipidemia, unspecified; R42 Dizziness and giddiness; Z79.899 Other long term (current) drug therapy; I11.0 Hypertensive heart disease with heart failure
CPT/HCPCS: 36415; 71045; 83605; 83735; 84100; 84484; 85025; 85730; 87040; 87077; 87086; A4606; A4663; A6209; A6213; G0378; J0696; J1650; J2185; J3370; J7040; J7050; J7070

== ENCOUNTER 2024-10-01 12:34 | Inpatient (IN) | payer MEDICARE, OTHER ==
[~2024-10-01] VITALS: Ht 162.6 cm; Wt 71.2 kg
[~2024-10-01 12:34] MED LIST changes: -CEFT1FRO2 IV; -ENOX40DI SQ; +NITR50CA4 PO; +gemtesa PO
[2024-10-01 13:14] LABS: PLATELET COUNT (AUTO) 379 K/uL (179-408); RED BLOOD CELL COUNT(AUTO) 3.57 MIL/uL (3.63-4.92); RED CELL DISTRIBUTION WIDTH 15.1 % (12.3-17.7); WHITE BLOOD COUNT (AUTO) 8.2 K/uL (3.8-11.8)
[2024-10-01] MEDS: IV NORMAL SALINE 1000 ML BAG IV ONE (13:15)
[2024-10-01 13:31] LABS: CREATININE 1.4 mg/dL (0.6-1.3); SODIUM SERUM 140 mmol/L (136-145); UREA NITROGEN, BLOOD 26 mg/dL (7-18)
[2024-10-01 13:38] LABS: ASPARTATE AMINOTRANSFERASE 5 U/L (15-37); TOTAL PROTEIN, SERUM 6.7 g/dL (6.4-8.2)
[2024-10-01 13:42] LABS: *BILIRUBIN,URIN NEGATIVE (NEGATIVE); *BLOOD, URINE NEGATIVE (NEGATIVE); *CLARITY,URINE CLEAR (CLEAR); *COLOR,URINE YELLOW (YELLOW); *KETONES,URINE NEGATIVE (NEGATIVE); *PROTEIN,URINE NEGATIVE (NEGATIVE); *UROBILINOGEN,URINE 0.2 E.U./dl (NORMAL); LEUKOCYTE ESTERASE ,URINE 1+ (NEGATIVE); NITRITE, URINE POSITIVE (NEGATIVE); UGLUCOSE NEGATIVE (NEGATIVE)
[2024-10-01 13:43] LABS: SQUAMOUS EPITHELIAL CELL,UR FEW /HPF (NONE SEEN)
[2024-10-01] MEDS ORDERED: CEFTRIAXONE /D5W 50ML IVPB **ER PYXIS IV ONE (13:57)
[2024-10-01] MEDS ORDERED: GENTAMICIN SULFATE 20 MG/2 ML VIAL IV ONE (13:58)
[2024-10-01] MEDS: CEFTRIAXONE 1 G in IV DEXTROSE 5% 50 ML IV ONE (13:59)
[2024-10-01] MEDS: GENTAMICIN SULFATE 20 MG/2 ML VIAL IV ONE (14:28)
[2024-10-01] MEDS ORDERED: MAGNESIUM HYDROXIDE 30 ML LIQUID UDC PO PRN (15:00)
[2024-10-01] MEDS ORDERED: ONDANSETRON 4 MG/2 ML VIAL IV PRN (15:00)
[2024-10-01] MEDS ORDERED: REMEDY ESSENTIAL ZINC PASTE 113 GM TP PRN (15:00)
[2024-10-01] MEDS ORDERED: HYDROMORPHONE 1 MG/1 ML DISP.SYRIN ONE (15:35)
[2024-10-01] MEDS: HYDROMORPHONE 1 MG/1 ML DISP.SYRIN IV ONE (15:37)
[2024-10-01] MEDS ORDERED: LORAZEPAM 2 MG/1 ML VIAL ONE (15:39)
[2024-10-01] MEDS: LORAZEPAM 2 MG/1 ML VIAL IV ONE (15:43)
[2024-10-01] MEDS ORDERED: ACETAMINOPHEN 325 MG TABLET-SA PATIENTS-PAIN ONLY PO PRN (15:45)
[2024-10-01] MEDS: ACETAMINOPHEN 325 MG TABLET PO PRN (16:54)
[2024-10-01] MEDS ORDERED: SIMETHICONE 125 MG PO SCH (17:00)
[2024-10-01] MEDS: IV 1/2NS 1000 ML 1,000 ML IV PRN (17:56)
[2024-10-01] MEDS: BENZTROPINE MESYLATE 0.5 MG TABLET PO SCH (18:00)
[2024-10-01] MEDS: DIVALPROEX SPRINKLE 125 MG CAP.SPRINK PO SCH (18:00)
[2024-10-01 18:30] VITALS: BP 119/39; TEMP 99.6; O2SAT 96
[2024-10-01 19:00] VITALS: BP 136/55; TEMP 98.3; O2SAT 96
[2024-10-01] MEDS ORDERED: Medication Not On Formulary EA (Docusate Sodium 200 MG) PO SCH (21:00)
[2024-10-01] MEDS: DOCUSATE SODIUM 100 MG CAPSULE PO SCH (21:18)
[2024-10-01] MEDS: REMEDY ESSENTIAL ZINC PASTE 113 GM TOP SCH (21:19)
[2024-10-01] MEDS: NYSTATIN CREAM 30 GM TUBE TOP SCH (21:19)
[2024-10-01] MEDS: NYSTATIN POWDER 15 GM BOTTLE TOP SCH (21:20)
[2024-10-02 06:44] VITALS: BP 145/66; TEMP 98; O2SAT 95
[2024-10-02] MEDS: PANTOPRAZOLE SODIUM 40 MG TABLET.DR PO SCH (06:44)
[2024-10-02 07:27] LABS: PLATELET COUNT (AUTO) 294 K/uL (179-408); RED BLOOD CELL COUNT(AUTO) 2.82 MIL/uL (3.63-4.92); RED CELL DISTRIBUTION WIDTH 14.9 % (12.3-17.7); WHITE BLOOD COUNT (AUTO) 6.7 K/uL (3.8-11.8)
[2024-10-02 07:50] LABS: CREATININE 0.8 mg/dL (0.6-1.3); UREA NITROGEN, BLOOD 17 mg/dL (7-18)
[2024-10-02 07:51] LABS: SODIUM SERUM 129 mmol/L (136-145)
[2024-10-02] MEDS: MIRALAX 17 GM POWD.PACK PO SCH (08:42)
[2024-10-02 11:07] VITALS: BP 115/42; TEMP 98.1; O2SAT 92
[2024-10-02 11:10] VITALS: BP 143/64; TEMP 98.1; O2SAT 98
[2024-10-02] MEDS: POTASSIUM CHLORIDE 20 MEQ POWDER PACKET PO ONE (11:45)
[2024-10-02] MEDS: MAGNESIUM OXIDE 400 MG TABLET PO ONE (11:46)
[2024-10-02] MEDS: ENOXAPARIN SODIUM 40 MG/0.4 ML DISP.SYRIN SQ SCH (12:44)
[2024-10-02] MEDS: CEFTRIAXONE 1 G in IV DEXTROSE 5% 50 ML IV SCH (13:03)
[2024-10-02 15:09] VITALS: BP 150/65; TEMP 97.7; O2SAT 96
[2024-10-02] MEDS: MEDIHONEY= THERAHONEY 1.5 OZ TUBE TOP SCH (16:30)
[2024-10-02] MEDS: LORAZEPAM 0.5 MG TABLET PO PRN (20:49)
[2024-10-02 21:04] VITALS: BP 169/70; TEMP 98.1; O2SAT 97
[2024-10-03 06:05] VITALS: BP 159/73; TEMP 98.9; O2SAT 98
[2024-10-03 07:09] LABS: PLATELET COUNT (AUTO) 337 K/uL (179-408); RED BLOOD CELL COUNT(AUTO) 3.12 MIL/uL (3.63-4.92); RED CELL DISTRIBUTION WIDTH 15.1 % (12.3-17.7); WHITE BLOOD COUNT (AUTO) 8.0 K/uL (3.8-11.8)
[2024-10-03 07:22] LABS: CREATININE 1.2 mg/dL (0.6-1.3); SODIUM SERUM 143 mmol/L (136-145); UREA NITROGEN, BLOOD 19 mg/dL (7-18)
[2024-10-03 11:13] VITALS: BP 133/65; TEMP 98.4; O2SAT 95
[2024-10-03 15:38] VITALS: BP 105/47; TEMP 98.8; O2SAT 97
[2024-10-03] MEDS: SIMETHICONE 80 MG TAB.CHEW PO SCH (16:54)
[2024-10-03 19:00] VITALS: BP 157/67; TEMP 97.7; O2SAT 94
[2024-10-04 06:00] VITALS: BP 143/57; TEMP 98.3; O2SAT 95
[2024-10-04 07:06] LABS: PLATELET COUNT (AUTO) 328 K/uL (179-408); RED BLOOD CELL COUNT(AUTO) 3.14 MIL/uL (3.63-4.92); RED CELL DISTRIBUTION WIDTH 14.9 % (12.3-17.7); WHITE BLOOD COUNT (AUTO) 6.4 K/uL (3.8-11.8)
[2024-10-04 07:23] LABS: CREATININE 1.2 mg/dL (0.6-1.3); SODIUM SERUM 141 mmol/L (136-145); UREA NITROGEN, BLOOD 18 mg/dL (7-18)
[2024-10-04] MEDS: MEDIHONEY= THERAHONEY 1.5 OZ TUBE TOP SCH (10:44)
[2024-10-04] MEDS: ARGININE/GLUTAMINE/CALCIUM BMB 1 EACH POWD.PACK PO SCH (10:45)
[2024-10-04 12:06] VITALS: BP 111/33; TEMP 98; O2SAT 95
[2024-10-04 15:05] VITALS: BP 135/60; TEMP 98; O2SAT 96
[2024-10-05 04:00] VITALS: BP 159/89; TEMP 98; O2SAT 98
[2024-10-05 06:44] LABS: PLATELET COUNT (AUTO) 336 K/uL (179-408); RED BLOOD CELL COUNT(AUTO) 3.12 MIL/uL (3.63-4.92); RED CELL DISTRIBUTION WIDTH 15.0 % (12.3-17.7); WHITE BLOOD COUNT (AUTO) 5.8 K/uL (3.8-11.8)
[2024-10-05 06:57] LABS: CREATININE 1.1 mg/dL (0.6-1.3); SODIUM SERUM 141 mmol/L (136-145); UREA NITROGEN, BLOOD 18 mg/dL (7-18)
[2024-10-05 11:40] VITALS: BP 141/63; TEMP 98; O2SAT 99
[2024-10-05 16:15] VITALS: BP 110/56; TEMP 97.7; O2SAT 95
[2024-10-05 19:27] VITALS: BP 119/49; TEMP 98.9; O2SAT 95
[2024-10-06 04:17] VITALS: BP 146/70; TEMP 97.9; O2SAT 96
[2024-10-06 11:34] VITALS: BP 128/59; TEMP 97.7; O2SAT 97
[2024-10-06 15:42] VITALS: BP 131/86; TEMP 97.7; O2SAT 99
[2024-10-06 21:55] VITALS: BP_SYST 100; BP_SYST 154; BP_DIAS 51; BP_DIAS 60; TEMP 98.3; O2SAT 93; O2SAT 95
[2024-10-07 06:53] VITALS: BP 133/70; TEMP 98; O2SAT 93
[2024-10-07 07:03] LABS: PLATELET COUNT (AUTO) 372 K/uL (179-408); RED BLOOD CELL COUNT(AUTO) 3.22 MIL/uL (3.63-4.92); RED CELL DISTRIBUTION WIDTH 15.3 % (12.3-17.7); WHITE BLOOD COUNT (AUTO) 5.7 K/uL (3.8-11.8)
[2024-10-07 07:19] LABS: CREATININE 1.2 mg/dL (0.6-1.3); SODIUM SERUM 141 mmol/L (136-145); UREA NITROGEN, BLOOD 22 mg/dL (7-18)
[2024-10-07] MEDS ORDERED: CEPH500C2 PO (08:48)
[2024-10-07 11:11] VITALS: BP 112/73; TEMP 98.6; O2SAT 98
== END 2024-10-07 13:00 | disposition home health service (06) | DRG 673 ==
LOC: ER 12:34 → MEDSURG3 16:17
PROVIDERS: ADMIT Student in an Organized Health Care Education/Training Program; ATTEND Student in an Organized Health Care Education/Training Program
PROC: 05HB33Z Insertion of Infusion Device into Right Basilic Vein, Percutaneous Approach (ICD-10-PCS; 2024-10-02)
PROC: 05HC33Z Insertion of Infusion Device into Left Basilic Vein, Percutaneous Approach (ICD-10-PCS; 2024-10-04)
PROC: 0JBQ0ZZ Excision of Right Foot Subcutaneous Tissue and Fascia, Open Approach (ICD-10-PCS; principal; 2024-10-05)
DX: N39.0 Urinary tract infection, site not specified (principal); G93.41 Metabolic encephalopathy; N17.0 Acute kidney failure with tubular necrosis; L89.613 Pressure ulcer of right heel, stage 3; F02.84 Dementia in other diseases classified elsewhere, unspecified severity, with anxiety; E44.0 Moderate protein-calorie malnutrition; E87.1 Hypo-osmolality and hyponatremia; B96.1 Klebsiella pneumoniae [K. pneumoniae] as the cause of diseases classified elsewhere; L89.156 Pressure-induced deep tissue damage of sacral region; L89.326 Pressure-induced deep tissue damage of left buttock; L89.316 Pressure-induced deep tissue damage of right buttock; Z86.16 Personal history of COVID-19; Z96.652 Presence of left artificial knee joint; Z88.5 Allergy status to narcotic agent; E78.5 Hyperlipidemia, unspecified; N32.81 Overactive bladder; Z87.440 Personal history of urinary (tract) infections; G20.A1 Parkinson's disease without dyskinesia, without mention of fluctuations; Z96.641 Presence of right artificial hip joint; M15.9 Polyosteoarthritis, unspecified; K21.9 Gastro-esophageal reflux disease without esophagitis; I12.9 Hypertensive chronic kidney disease with stage 1 through stage 4 chronic kidney disease, or unspecified chronic kidney disease; N18.2 Chronic kidney disease, stage 2 (mild); Z86.19 Personal history of other infectious and parasitic diseases; E88.09 Other disorders of plasma-protein metabolism, not elsewhere classified; D64.9 Anemia, unspecified; R51.9 Headache, unspecified
CPT/HCPCS: 36415; 70450; 71045; 83605; 83735; 84100; 84443; 84484; 85025; 85730; 87040; 87077; 87086; A4606; A4663; A6209; A6213; C1758; G0378; J0696; J1171; J1580; J1650; J2060; J7040

== ENCOUNTER 2024-11-30 16:16 | Inpatient (IN) | payer MEDICARE, OTHER ==
[~2024-11-30] VITALS: Ht 162.6 cm; Wt 65.8 kg
[2024-11-30] MEDS: ONDANSETRON 4 MG/2 ML VIAL IV ONE (15:16)
[~2024-11-30 16:16] MED LIST changes: +CEPH500C2 PO; -NITR50CA4 PO; -gemtesa PO
[2024-11-30] MEDS ORDERED: HYDROMORPHONE 1 MG/1 ML DISP.SYRIN ONE (17:15)
[2024-11-30] MEDS: IV NORMAL SALINE 1000 ML BAG IV ONE (17:15)
[2024-11-30] MEDS ORDERED: ONDANSETRON 4 MG/2 ML VIAL ONE (17:15)
[2024-11-30] MEDS: HYDROMORPHONE 1 MG/1 ML DISP.SYRIN IV ONE (17:16)
[2024-11-30 17:26] LABS: PLATELET COUNT (AUTO) 380 K/uL (179-408); RED BLOOD CELL COUNT(AUTO) 3.62 MIL/uL (3.63-4.92); RED CELL DISTRIBUTION WIDTH 15.3 % (12.3-17.7); WHITE BLOOD COUNT (AUTO) 10.7 K/uL (3.8-11.8)
[2024-11-30 17:33] LABS: CREATININE 1.5 mg/dL (0.6-1.3); SODIUM SERUM 139 mmol/L (136-145); UREA NITROGEN, BLOOD 23 mg/dL (7-18)
[2024-11-30 17:40] LABS: ASPARTATE AMINOTRANSFERASE 13 U/L (15-37); TOTAL PROTEIN, SERUM 7.2 g/dL (6.4-8.2)
[2024-11-30] MEDS ORDERED: IOHEXOL 300MG/ML 100 ML INFUS..BTL ONE (17:50)
[2024-11-30 19:00] VITALS: BP 107/63
[2024-11-30 19:59] LABS: *BILIRUBIN,URIN NEGATIVE (NEGATIVE); *BLOOD, URINE TRACE (NEGATIVE); *CLARITY,URINE CLEAR (CLEAR); *COLOR,URINE YELLOW (YELLOW); *KETONES,URINE NEGATIVE (NEGATIVE); *PROTEIN,URINE 1+ (NEGATIVE); *UROBILINOGEN,URINE 0.2 E.U./dl (NORMAL); LEUKOCYTE ESTERASE ,URINE 1+ (NEGATIVE); NITRITE, URINE NEGATIVE (NEGATIVE); UGLUCOSE NEGATIVE (NEGATIVE)
[2024-11-30 20:06] LABS: SQUAMOUS EPITHELIAL CELL,UR FEW /HPF (NONE SEEN)
[2024-11-30] MEDS ORDERED: PIPERACILLIN/TAZOBACTAM/D5W 50 ML IV ONE (20:43)
[2024-11-30] MEDS: PIPERACILLIN SODIUM/TAZOBACTAM 3.375 G in IV DEXTROSE 5% 50 ML IV ONE (20:47)
[2024-11-30 21:30] VITALS: BP 115/82; TEMP 99.8; O2SAT 94
[2024-11-30] MEDS ORDERED: ONDANSETRON 4 MG/2 ML VIAL IV PRN (21:30)
[2024-11-30] MEDS: HEPARIN SODIUM,PORCINE 5,000 UNITS/ML VIAL SQ SCH (23:24)
[2024-12-01] MEDS: ACETAMINOPHEN 325 MG TABLET PO PRN (02:28)
[2024-12-01 05:30] VITALS: BP 112/70; TEMP 97.9; O2SAT 98
[2024-12-01] MEDS: PANTOPRAZOLE SODIUM 40 MG TABLET.DR PO SCH (06:28)
[2024-12-01 06:55] LABS: PLATELET COUNT (AUTO) 323 K/uL (179-408); RED BLOOD CELL COUNT(AUTO) 3.05 MIL/uL (3.63-4.92); RED CELL DISTRIBUTION WIDTH 15.3 % (12.3-17.7); WHITE BLOOD COUNT (AUTO) 9.0 K/uL (3.8-11.8)
[2024-12-01 07:30] LABS: IRON, SERUM 13 ug/dL (50-175)
[2024-12-01 07:59] VITALS: BP 130/55; TEMP 98.1; O2SAT 94
[2024-12-01 08:31] LABS: CREATININE 1.4 mg/dL (0.6-1.3); SODIUM SERUM 140 mmol/L (136-145); UREA NITROGEN, BLOOD 21 mg/dL (7-18)
[2024-12-01] MEDS ORDERED: NYST15PO4 TP (09:42)
[2024-12-01] MEDS ORDERED: CLOT15CR27 TP (09:43)
[2024-12-01] MEDS ORDERED: SILV50CR32 TP (09:43)
[2024-12-01] MEDS ORDERED: MIRA50TA PO (09:44)
[2024-12-01] MEDS ORDERED: DEXL60CA3 PO (09:44)
[2024-12-01] MEDS ORDERED: NITR50CA4 PO (09:49)
[2024-12-01 11:03] VITALS: BP 135/50; TEMP 98.8; O2SAT 97
[2024-12-01 15:24] VITALS: BP 122/57; TEMP 97.6; O2SAT 96
[2024-12-01 19:15] VITALS: BP 132/55; TEMP 99.2; O2SAT 96
[2024-12-01] MEDS ORDERED: LORAZEPAM 0.5 MG TABLET PO PRN (20:30)
[2024-12-01] MEDS ORDERED: ACETAMINOPHEN 325 MG TABLET-SA PATIENTS-PAIN ONLY PO PRN (20:30)
[2024-12-01] MEDS: BENZTROPINE MESYLATE 0.5 MG TABLET PO SCH (21:04)
[2024-12-01] MEDS: DIVALPROEX SPRINKLE 125 MG CAP.SPRINK PO SCH (21:05)
[2024-12-02 05:46] VITALS: BP 147/77; TEMP 97.4; O2SAT 96
[2024-12-02 06:52] LABS: PLATELET COUNT (AUTO) 366 K/uL (179-408); RED BLOOD CELL COUNT(AUTO) 3.13 MIL/uL (3.63-4.92); RED CELL DISTRIBUTION WIDTH 14.9 % (12.3-17.7); WHITE BLOOD COUNT (AUTO) 6.3 K/uL (3.8-11.8)
[2024-12-02 07:00] LABS: ASPARTATE AMINOTRANSFERASE 17 U/L (15-37); CREATININE 1.3 mg/dL (0.6-1.3); SODIUM SERUM 142 mmol/L (136-145); TOTAL PROTEIN, SERUM 6.3 g/dL (6.4-8.2); UREA NITROGEN, BLOOD 18 mg/dL (7-18)
[2024-12-02] MEDS: REMEDY ESSENTIAL ZINC PASTE 113 GM TP PRN (08:33)
[2024-12-02] MEDS: NYSTATIN POWDER 15 GM BOTTLE TP SCH (09:27)
[2024-12-02] MEDS: SILVER SULFADIAZINE 1% CREAM 50 GM TP SCH (09:27)
[2024-12-02] MEDS: CLOTRIMAZOLE 1% CREAM 30 GM TUBE TP SCH (09:27)
[2024-12-02 11:30] VITALS: BP 128/67; TEMP 97.9; O2SAT 98
== END 2024-12-02 15:00 | disposition home health service (06) | DRG 689 ==
LOC: ER 16:16 → TELE3 21:30 → MEDSURG3 12-01 11:19
PROVIDERS: ADMIT Nurse Practitioner Family; ATTEND Internal Medicine
DX: N39.0 Urinary tract infection, site not specified (principal); G92.8 Other toxic encephalopathy; N17.0 Acute kidney failure with tubular necrosis; J96.91 Respiratory failure, unspecified with hypoxia; F02.84 Dementia in other diseases classified elsewhere, unspecified severity, with anxiety; F02.83 Dementia in other diseases classified elsewhere, unspecified severity, with mood disturbance; K80.20 Calculus of gallbladder without cholecystitis without obstruction; E78.5 Hyperlipidemia, unspecified; D50.9 Iron deficiency anemia, unspecified; Z87.440 Personal history of urinary (tract) infections; M15.9 Polyosteoarthritis, unspecified; E11.9 Type 2 diabetes mellitus without complications; G20.A1 Parkinson's disease without dyskinesia, without mention of fluctuations; T40.2X5A Adverse effect of other opioids, initial encounter; Y92.238 Other place in hospital as the place of occurrence of the external cause; I10 Essential (primary) hypertension; Z86.39 Personal history of other endocrine, nutritional and metabolic disease; Z86.73 Personal history of transient ischemic attack (TIA), and cerebral infarction without residual deficits; Z79.899 Other long term (current) drug therapy; Z96.653 Presence of artificial knee joint, bilateral; Z96.643 Presence of artificial hip joint, bilateral
CPT/HCPCS: 36415; 71045; 83550; 83605; 83690; 83735; 84100; 84443; 84484; 85025; 87040; 87077; 87086; A4606; A4663; G0378; J0696; J1171; J1644; J2405; J2543; J7040; Q9967

== ENCOUNTER 2024-12-10 23:19 | Inpatient (IN) | payer MEDICARE, OTHER ==
[~2024-12-10] VITALS: Ht 162.6 cm; Wt 67.1 kg
[~2024-12-10 23:19] MED LIST changes: -CEPH500C2 PO; +CLOT15CR27 TP; +DEXL60CA3 PO; -DOCU100T2 PO; -LOSA50TA39 PO; -MELA3TAB41 PO; -MELO-107 PO; +MIRA50TA PO; +NITR50CA4 PO; +NYST15PO4 TP; -PANT40TA49 PO; -POLY17PO4 PO; +SILV50CR32 TP; -SIME125T3 PO
[2024-12-11] VITALS (8 sets, daily range): BP systolic 129–154; BP diastolic 63–84; TEMP 97.6–99.4; O2SAT 97–100
[2024-12-11 00:26] LABS: PLATELET COUNT (AUTO) 516 K/uL (179-408); RED BLOOD CELL COUNT(AUTO) 3.55 MIL/uL (3.63-4.92); RED CELL DISTRIBUTION WIDTH 15.1 % (12.3-17.7); WHITE BLOOD COUNT (AUTO) 11.7 K/uL (3.8-11.8)
[2024-12-11] MEDS ORDERED: CEFEPIME HCL 1 G VIAL ONE (00:45)
[2024-12-11 00:47] LABS: CREATININE 1.3 mg/dL (0.6-1.3); SODIUM SERUM 138 mmol/L (136-145); UREA NITROGEN, BLOOD 29 mg/dL (7-18)
[2024-12-11] MEDS: CEFEPIME (MAXEPIME) 2 G in IV DEXTROSE 5% 100 ML IV ONE (00:54)
[2024-12-11 01:02] LABS: ASPARTATE AMINOTRANSFERASE 17 U/L (15-37); TOTAL PROTEIN, SERUM 7.0 g/dL (6.4-8.2)
[2024-12-11 03:01] LABS: *BILIRUBIN,URIN NEGATIVE (NEGATIVE); *BLOOD, URINE NEGATIVE (NEGATIVE); *CLARITY,URINE CLEAR (CLEAR); *COLOR,URINE YELLOW (YELLOW); *KETONES,URINE NEGATIVE (NEGATIVE); *PROTEIN,URINE NEGATIVE (NEGATIVE); *UROBILINOGEN,URINE 0.2 E.U./dl (NORMAL); LEUKOCYTE ESTERASE ,URINE TRACE (NEGATIVE); NITRITE, URINE NEGATIVE (NEGATIVE); UGLUCOSE NEGATIVE (NEGATIVE)
[2024-12-11] MEDS ORDERED: ONDANSETRON 4 MG/2 ML VIAL IV PRN (03:30)
[2024-12-11] MEDS ORDERED: REMEDY ESSENTIAL ZINC PASTE 113 GM TP PRN (03:30)
[2024-12-11] MEDS ORDERED: DEXLANSOPRAZOLE PO PRN (03:30)
[2024-12-11] MEDS ORDERED: MAGNESIUM HYDROXIDE 30 ML LIQUID UDC PO PRN (03:30)
[2024-12-11] MEDS: IV NORMAL SALINE 500 ML IV ONE (03:39)
[2024-12-11 03:41] LABS: SQUAMOUS EPITHELIAL CELL,UR MODERATE /HPF (NONE SEEN)
[2024-12-11] MEDS ORDERED: PANTOPRAZOLE SODIUM 40 MG TABLET.DR PO PRN (06:00)
[2024-12-11 06:51] LABS: PLATELET COUNT (AUTO) 499 K/uL (179-408); RED BLOOD CELL COUNT(AUTO) 3.60 MIL/uL (3.63-4.92); RED CELL DISTRIBUTION WIDTH 15.1 % (12.3-17.7); WHITE BLOOD COUNT (AUTO) 9.8 K/uL (3.8-11.8)
[2024-12-11 07:13] LABS: CREATININE 1.3 mg/dL (0.6-1.3); SODIUM SERUM 140 mmol/L (136-145); UREA NITROGEN, BLOOD 25 mg/dL (7-18)
[2024-12-11] MEDS: ENOXAPARIN SODIUM 40 MG/0.4 ML DISP.SYRIN SQ SCH (08:14)
[2024-12-11] MEDS ORDERED: DIVALPROEX SPRINKLE 125 MG CAP.SPRINK PO SCH (09:00)
[2024-12-11] MEDS: LORAZEPAM 0.5 MG TABLET PO PRN (09:16)
[2024-12-11] MEDS: DIVALPROEX SPRINKLE 125 MG CAP.SPRINK PO SCH (10:20)
[2024-12-11] MEDS: CEFEPIME (MAXEPIME) 1 G in IV DEXTROSE 5% 50 ML IV SCH (12:32)
[2024-12-11] MEDS: MEDIHONEY= THERAHONEY 1.5 OZ TUBE TOP SCH (15:32)
[2024-12-11] MEDS: CLOTRIMAZOLE 1% CREAM 30 GM TUBE TOP SCH (17:11)
[2024-12-11] MEDS: BENZTROPINE MESYLATE 0.5 MG TABLET PO SCH (20:53)
[2024-12-12] VITALS (7 sets, daily range): BP systolic 103–134; BP diastolic 54–70; TEMP 97.6–98.6; O2SAT 94–100
[2024-12-12] MEDS ORDERED: CEFEPIME (MAXEPIME) 1 G in IV DEXTROSE 5% 50 ML IV SCH (03:30)
[2024-12-12] MEDS: ENOXAPARIN SODIUM 30 MG/0.3 ML DISP.SYRIN SUBCUT SCH (08:17)
[2024-12-13] VITALS (8 sets, daily range): BP systolic 108–143; BP diastolic 45–67; TEMP 97.8–99; O2SAT 95–99
[2024-12-13 07:34] LABS: CREATININE 1.2 mg/dL (0.6-1.3); SODIUM SERUM 141 mmol/L (136-145); UREA NITROGEN, BLOOD 27 mg/dL (7-18)
[2024-12-14 04:00] VITALS: BP 122/64; TEMP 99.3; O2SAT 98
[2024-12-14] MEDS: MEROPENEM 500 MG in IV NORMAL SALINE 50 ML IV SCH (11:07)
[2024-12-14 12:03] VITALS: BP 117/54; TEMP 98.4; O2SAT 95
[2024-12-14] MEDS: ARGININE/GLUTAMINE/CALCIUM BMB 1 EACH POWD.PACK PO SCH (16:22)
[2024-12-14] MEDS: ENSURE WITH FIBER 237 ML LIQUID (CHOCOLATE) PO SCH (16:23)
[2024-12-14] MEDS: ACETAMINOPHEN 325 MG TABLET PO PRN (16:25)
[2024-12-14 16:29] VITALS: BP 127/52; TEMP 99.8; O2SAT 96
[2024-12-14 20:24] VITALS: BP 131/61; TEMP 98.5; O2SAT 92
[2024-12-14 20:27] VITALS: BP 180/97; TEMP 96.9; O2SAT 98
[2024-12-15 05:10] VITALS: BP 136/70; TEMP 97.6; O2SAT 95
[2024-12-15 07:56] VITALS: BP 135/66; TEMP 98.2; O2SAT 95
[2024-12-15 11:39] VITALS: BP 119/43; TEMP 98.9; O2SAT 98
[2024-12-15 15:56] VITALS: BP 125/45; TEMP 98.8; O2SAT 95
[2024-12-15 19:37] VITALS: BP 116/51; TEMP 99.2; O2SAT 92
[2024-12-16 05:21] VITALS: BP 102/45; TEMP 98.1; O2SAT 98
[2024-12-16 11:19] VITALS: BP 115/58; TEMP 98.4; O2SAT 97
[2024-12-16 16:19] VITALS: BP 125/53; TEMP 98; O2SAT 96
[2024-12-16 19:25] VITALS: BP 127/49; TEMP 99.6; O2SAT 90
[2024-12-17 07:12] LABS: CREATININE 1.2 mg/dL (0.6-1.3); SODIUM SERUM 142 mmol/L (136-145); UREA NITROGEN, BLOOD 49 mg/dL (7-18)
[2024-12-17 11:34] VITALS: BP 128/85; TEMP 98.3; O2SAT 99
[2024-12-17 15:54] VITALS: BP 127/64; TEMP 98.8; O2SAT 97
[2024-12-17 19:35] VITALS: BP_SYST 129; BP_SYST 92; BP_DIAS 57; BP_DIAS 62; TEMP 99.6; O2SAT 94
[2024-12-17] MEDS: LORAZEPAM 0.5 MG TABLET PO PRN (21:00)
[2024-12-18 05:42] VITALS: BP 120/52; TEMP 98.1; O2SAT 98
[2024-12-18] MEDS ORDERED: ERTA1VIA4 IJ (10:38)
[2024-12-18 11:33] VITALS: BP 132/76; TEMP 98.1; O2SAT 97
[2024-12-18 15:44] VITALS: BP 124/62; TEMP 98.4; O2SAT 94
== END 2024-12-18 16:50 | disposition home health service (06) | DRG 981 ==
LOC: ER 23:23 → TELE3 12-11 03:20 → MEDSURG3 12-13 08:52
PROC: 0KBV0ZZ Excision of Right Foot Muscle, Open Approach (ICD-10-PCS; principal; 2024-12-14)
PROC: 05HC33Z Insertion of Infusion Device into Left Basilic Vein, Percutaneous Approach (ICD-10-PCS; 2024-12-18)
DX: N39.0 Urinary tract infection, site not specified (principal); L89.153 Pressure ulcer of sacral region, stage 3; L89.614 Pressure ulcer of right heel, stage 4; F02.84 Dementia in other diseases classified elsewhere, unspecified severity, with anxiety; Z16.12 Extended spectrum beta lactamase (ESBL) resistance; E44.1 Mild protein-calorie malnutrition; J90 Pleural effusion, not elsewhere classified; F02.83 Dementia in other diseases classified elsewhere, unspecified severity, with mood disturbance; R62.7 Adult failure to thrive; G20.A1 Parkinson's disease without dyskinesia, without mention of fluctuations; B96.20 Unspecified Escherichia coli [E. coli] as the cause of diseases classified elsewhere; B96.5 Pseudomonas (aeruginosa) (mallei) (pseudomallei) as the cause of diseases classified elsewhere; L89.226 Pressure-induced deep tissue damage of left hip; L30.8 Other specified dermatitis; E78.5 Hyperlipidemia, unspecified; M15.9 Polyosteoarthritis, unspecified; N32.81 Overactive bladder; D64.9 Anemia, unspecified; D75.839 Thrombocytosis, unspecified; E88.09 Other disorders of plasma-protein metabolism, not elsewhere classified; R79.89 Other specified abnormal findings of blood chemistry; F32.A Depression, unspecified; I10 Essential (primary) hypertension; Z68.25 Body mass index [BMI] 25.0-25.9, adult; Z87.440 Personal history of urinary (tract) infections; Z96.652 Presence of left artificial knee joint; Z96.641 Presence of right artificial hip joint; Z79.899 Other long term (current) drug therapy
CPT/HCPCS: 36415; 71045; 83605; 83735; 84100; 84443; 84484; 85025; 85730; 87040; 87077; 87086; 94760; A4606; A4663; A6209; A6213; C1758; G0378; J0692; J1650; J2185; J3490; J7040

== ENCOUNTER 2025-03-08 17:49 | Inpatient (IN) | payer MEDICARE, OTHER ==
[~2025-03-08] VITALS: Ht 160 cm; Wt 71.9 kg
[~2025-03-08 17:49] MED LIST changes: +ACET-3752 PO; -ACET325T53 PO; +BENZ0.5T3 PO; -BENZ0.5T43 PO; +ERTA1VIA4 IJ; +NYST15PO TP; -NYST15PO4 TP; +RISP-32 PO; -RISP1TAB97 PO
[2025-03-08 18:35] LABS: PLATELET COUNT (AUTO) 354 K/uL (179-408); RED BLOOD CELL COUNT(AUTO) 3.94 MIL/uL (3.63-4.92); RED CELL DISTRIBUTION WIDTH 16.2 % (12.3-17.7); WHITE BLOOD COUNT (AUTO) 6.7 K/uL (3.8-11.8)
[2025-03-08 18:43] LABS: ABG BASE EXCESS 1.2 mmol/L (-2.0-3.0); ABG HCO3 25.0 mmol/L (21.0-28.0); ABG PCO2 36.4 mmHg (32.0-45.0); ABG PH 7.454 (7.350-7.450); ABG PO2 89.4 mmHg (83.0-108.0); ABG SITE RIGHT RADIAL; ABG TOTAL HEMOGLOBIN 10.9 G/dL (12.0-16.0); AaDO2 97.2 mmHg; FIO2 21.0 %
[2025-03-08 18:47] LABS: ASPARTATE AMINOTRANSFERASE 8 U/L (15-37); CREATININE 1.3 mg/dL (0.6-1.3); SODIUM SERUM 147 mmol/L (136-145); TOTAL PROTEIN, SERUM 6.7 g/dL (6.4-8.2)
[2025-03-08 18:51] LABS: UREA NITROGEN, BLOOD 86 mg/dL (7-18)
[2025-03-08 19:19] LABS: *BILIRUBIN,URIN NEGATIVE (NEGATIVE); *BLOOD, URINE NEGATIVE (NEGATIVE); *CLARITY,URINE CLEAR (CLEAR); *COLOR,URINE LIGHT YELLOW (YELLOW); *KETONES,URINE NEGATIVE (NEGATIVE); *PROTEIN,URINE NEGATIVE (NEGATIVE); *UROBILINOGEN,URINE 0.2 E.U./dl (NORMAL); LEUKOCYTE ESTERASE ,URINE 1+ (NEGATIVE); NITRITE, URINE NEGATIVE (NEGATIVE); UGLUCOSE NEGATIVE (NEGATIVE)
[2025-03-08] MEDS: IV LACTATED RINGERS SOLUTION 1,000 ML BAG IV ONE (19:20)
[2025-03-08 19:28] LABS: SQUAMOUS EPITHELIAL CELL,UR FEW /HPF (NONE SEEN)
[2025-03-08] MEDS ORDERED: MEROPENEM 1GM/NS 100ML IVPB **ER PYXIS ONLY IV ONE (20:14)
[2025-03-08] MEDS: MEROPENEM 1,000 MG in IV NORMAL SALINE 100 ML IV ONE (20:19)
[2025-03-08] MEDS ORDERED: ACETAMINOPHEN 325 MG TABLET PO PRN (20:45)
[2025-03-08] MEDS ORDERED: MAGNESIUM HYDROXIDE 30 ML LIQUID UDC PO PRN (20:45)
[2025-03-08] MEDS ORDERED: ONDANSETRON 4 MG/2 ML VIAL IV PRN (20:45)
[2025-03-08 21:00] VITALS: BP 137/61
[2025-03-08] MEDS ORDERED: LORAZEPAM 2 MG/1 ML VIAL ONE (21:06)
[2025-03-08] MEDS: LORAZEPAM 2 MG/1 ML VIAL IV ONE (21:09)
[2025-03-08] MEDS ORDERED: ENOXAPARIN SODIUM 30 MG/0.3 ML DISP.SYRIN ONE (21:23)
[2025-03-08] MEDS: ENOXAPARIN SODIUM 30 MG/0.3 ML DISP.SYRIN SUBCUT SCH (21:24)
[2025-03-08 22:00] VITALS: BP 132/62; TEMP 97.7; O2SAT 97
[2025-03-08] MEDS: IV NS 1000 ML 1,000 ML IV PRN (23:04)
[2025-03-09 05:37] VITALS: BP 108/40; TEMP 98.2; O2SAT 96
[2025-03-09] MEDS: PANTOPRAZOLE SODIUM 40 MG TABLET.DR PO SCH (06:13)
[2025-03-09 06:46] LABS: PLATELET COUNT (AUTO) 294 K/uL (179-408); RED BLOOD CELL COUNT(AUTO) 3.53 MIL/uL (3.63-4.92); RED CELL DISTRIBUTION WIDTH 15.9 % (12.3-17.7); WHITE BLOOD COUNT (AUTO) 5.2 K/uL (3.8-11.8)
[2025-03-09 07:06] LABS: CREATININE 1.1 mg/dL (0.6-1.3); SODIUM SERUM 145 mmol/L (136-145); UREA NITROGEN, BLOOD 73 mg/dL (7-18)
[2025-03-09] MEDS: MEROPENEM 500 MG in IV NORMAL SALINE 50 ML IV SCH (09:14)
[2025-03-09] MEDS ORDERED: DEXLANSOPRAZOLE PO PRN (09:45)
[2025-03-09] MEDS ORDERED: ACETAMINOPHEN 325 MG TABLET-SA PATIENTS-PAIN ONLY PO PRN (09:45)
[2025-03-09 11:59] VITALS: BP 126/51; TEMP 97.8; O2SAT 97
[2025-03-09 12:59] LABS: *BILIRUBIN,URIN NEGATIVE (NEGATIVE); *BLOOD, URINE NEGATIVE (NEGATIVE); *COLOR,URINE YELLOW (YELLOW); *KETONES,URINE NEGATIVE (NEGATIVE); *PROTEIN,URINE NEGATIVE (NEGATIVE); *UROBILINOGEN,URINE 0.2 E.U./dl (NORMAL); LEUKOCYTE ESTERASE ,URINE 2+ (NEGATIVE); NITRITE, URINE NEGATIVE (NEGATIVE); UGLUCOSE NEGATIVE (NEGATIVE)
[2025-03-09 13:22] LABS: *CLARITY,URINE SLIGHTLY HAZY (CLEAR)
[2025-03-09 13:24] LABS: SQUAMOUS EPITHELIAL CELL,UR FEW /HPF (NONE SEEN)
[2025-03-09 13:28] LABS: *CREATININE,URINE 25.0 mg/dL (30-125); *SODIUM RNDM,URINE 96.0 mmol/L (40-220); *URINE TOTAL PROTEIN RANDOM 17.1 mg/dL (<150/24HR)
[2025-03-09 15:38] VITALS: BP_SYST 126; BP_SYST 140; BP_DIAS 51; BP_DIAS 61; TEMP 97.8; O2SAT 94; O2SAT 97
[2025-03-09] MEDS: DIVALPROEX SPRINKLE 125 MG CAP.SPRINK PO SCH (16:39)
[2025-03-09 19:00] VITALS: BP 135/97; TEMP 98.3; O2SAT 95
[2025-03-09] MEDS: BENZTROPINE MESYLATE 0.5 MG TABLET PO SCH (20:45)
[2025-03-10 04:00] VITALS: BP 119/58; TEMP 98.6; O2SAT 95
[2025-03-10 06:31] LABS: PLATELET COUNT (AUTO) 283 K/uL (179-408); RED BLOOD CELL COUNT(AUTO) 3.22 MIL/uL (3.63-4.92); RED CELL DISTRIBUTION WIDTH 16.1 % (12.3-17.7); WHITE BLOOD COUNT (AUTO) 4.8 K/uL (3.8-11.8)
[2025-03-10 06:50] LABS: ASPARTATE AMINOTRANSFERASE 8 U/L (15-37); CREATINE KINASE, TOTAL 14 U/L (26-192); CREATININE 1.1 mg/dL (0.6-1.3); SODIUM SERUM 149 mmol/L (136-145); TOTAL PROTEIN, SERUM 5.5 g/dL (6.4-8.2); UREA NITROGEN, BLOOD 47 mg/dL (7-18)
[2025-03-10] MEDS: CLOTRIMAZOLE 1% CREAM 30 GM TUBE TP SCH (08:37)
[2025-03-10] MEDS: NYSTATIN POWDER 15 GM BOTTLE TP SCH (08:37)
[2025-03-10] MEDS: SILVER SULFADIAZINE 1% CREAM 50 GM TP SCH (08:38)
[2025-03-10] MEDS ORDERED: MIRABEGRON PO SCH (09:00)
[2025-03-10] MEDS ORDERED: IV 1/2NS 1000 ML 1,000 ML IV SCH (09:15)
[2025-03-10] MEDS: IV D5W 1000ML 1,000 ML IV PRN (10:49)
[2025-03-10 11:57] VITALS: BP 98/50; TEMP 98.1; O2SAT 98
[2025-03-10 16:14] VITALS: BP 157/70; TEMP 98.2; O2SAT 98
[2025-03-10 19:52] VITALS: BP 150/52; TEMP 98.6; O2SAT 97
[2025-03-10] MEDS: TRAZODONE 50 MG TABLET PO SCH (21:38)
[2025-03-11 05:16] VITALS: BP 137/59; TEMP 98; O2SAT 97
[2025-03-11 06:50] LABS: PLATELET COUNT (AUTO) 298 K/uL (179-408); RED BLOOD CELL COUNT(AUTO) 3.26 MIL/uL (3.63-4.92); RED CELL DISTRIBUTION WIDTH 15.9 % (12.3-17.7); WHITE BLOOD COUNT (AUTO) 6.1 K/uL (3.8-11.8)
[2025-03-11 07:12] LABS: ASPARTATE AMINOTRANSFERASE 8 U/L (15-37); CREATININE 1.1 mg/dL (0.6-1.3); SODIUM SERUM 145 mmol/L (136-145); TOTAL PROTEIN, SERUM 5.7 g/dL (6.4-8.2); UREA NITROGEN, BLOOD 33 mg/dL (7-18)
[2025-03-11 09:07] LABS: PTH, INTACT 10 pg/mL (15-65)
[2025-03-11 11:37] VITALS: BP 126/48; TEMP 98.6; O2SAT 97
[2025-03-11] MEDS: MEDIHONEY= THERAHONEY 1.5 OZ TUBE TOP SCH (12:54)
[2025-03-11 16:00] VITALS: BP 126/63; TEMP 98.4; O2SAT 100
[2025-03-11] MEDS: MEROPENEM 500 MG in IV NORMAL SALINE 50 ML IV ONE (16:47)
== END 2025-03-11 17:55 | disposition home health service (06) | DRG 640 ==
LOC: ER 17:54 → MEDSURG3 21:20
PROVIDERS: ADMIT Nurse Practitioner Family; ATTEND Nurse Practitioner Family
DX: E86.0 Dehydration (principal); G93.41 Metabolic encephalopathy; L89.153 Pressure ulcer of sacral region, stage 3; L89.224 Pressure ulcer of left hip, stage 4; E44.1 Mild protein-calorie malnutrition; E87.0 Hyperosmolality and hypernatremia; G20.A1 Parkinson's disease without dyskinesia, without mention of fluctuations; N39.0 Urinary tract infection, site not specified; F03.94 Unspecified dementia, unspecified severity, with anxiety; I50.9 Heart failure, unspecified; L97.821 Non-pressure chronic ulcer of other part of left lower leg limited to breakdown of skin; F02.84 Dementia in other diseases classified elsewhere, unspecified severity, with anxiety; D64.9 Anemia, unspecified; E88.09 Other disorders of plasma-protein metabolism, not elsewhere classified; Z87.440 Personal history of urinary (tract) infections; Z74.01 Bed confinement status; R32 Unspecified urinary incontinence; L89.621 Pressure ulcer of left heel, stage 1; L89.611 Pressure ulcer of right heel, stage 1; M89.8X9 Other specified disorders of bone, unspecified site; Z79.899 Other long term (current) drug therapy; Z86.19 Personal history of other infectious and parasitic diseases; E78.5 Hyperlipidemia, unspecified; K21.9 Gastro-esophageal reflux disease without esophagitis; Z86.16 Personal history of COVID-19; E83.52 Hypercalcemia; R73.9 Hyperglycemia, unspecified
CPT/HCPCS: 36415; 36600; 70450; 71045; 83605; 83735; 83970; 84100; 84155; 84165; 84300; 84484; 85025; 87086; A4606; A4663; A6209; A6213; C1758; G0378; J1650; J2060; J2185; J7040; J7070; J7120